=== PATIENT | male | born 1950 | race Caucasian/White ===

== ENCOUNTER 2017-07-26 13:58 | Inpatient (IN) | payer OTHER ==
[~2017-07-26] VITALS: Ht 172.7 cm; Wt 77.7 kg
[2017-07-26] VITALS (12 sets, daily range): BP systolic 79–140; BP diastolic 50–69; PULSE 12–79; RESP 16–18; TEMP 97.7–97.8; O2SAT 96–100
[2017-07-26] MEDS ORDERED: DIGOXIN IMMUNE FAB INJ 400 MG in SODIUM CHLORIDE 0.9% INJ 50 ML IV ONE (14:30)
[2017-07-26] MEDS ORDERED: MIDAZOLAM 100 MG/100 ML INJ 100 ML IV PRN (14:30)
[2017-07-26 14:31] LABS: AUTOMATED NEUTROPHIL # 7.4 TH/MM3 (1.8-7.7); BASOPHIL # 0.1 TH/MM3 (0-0.2); BASOPHIL % 0.6 % (0.0-2.0); EOSINOPHIL # 0.1 TH/MM3 (0-0.4); HEMATOCRIT 39.8 % (39.0-51.0); HEMO FLAGS DIFF FINAL; LYMPH % 15.1 % (9.0-44.0); LYMPHOCYTE # 1.5 TH/MM3 (1.0-4.8); MEAN CELL VOLUME 101.5 FL (80.0-100.0); MEAN CORPUSCULAR HGB CONC 35.5 % (32.0-36.0); MONO % 7.5 % (0.0-8.0); NEUT % 75.8 % (16.0-70.0); PLATELET COUNT 109 TH/MM3 (150-450); RED BLOOD COUNT 3.92 MIL/MM3 (4.50-5.90); RED CELL DISTRIBUTION WIDTH 15.3 % (11.6-17.2); WHITE BLOOD COUNT 9.8 TH/MM3 (4.0-11.0)
--- NOTE | 2017-07-26 14:51 | PD ---
HPI . Symptomatic bradycardia Chief Complaint: Cardiac complaint Time Seen by Provider: 14:04 Travel History International Travel<30 days: No Contact w/Intl Traveler<30days: No History of Present Illness HPI This is an inmate from the local care home who was sent to us after being found down in his cell. Staff at the care home initiated CPR. They then found out that the patient had a DNR so CPR was stopped. However, the patient had spontaneous return of respirations. EMS was called. On their arrival, they found the patient to be bradycardic at a rate of 20 with a systolic blood pressure of 50. They initiated transcutaneous pacing. Blood pressure is now > 100. Medics report that the patient was responsive on their arrival to the scene and that the patient told them that he wanted them to do everything that they could take care of him. Records from the care home indicate that he has a history of atrial fibrillation, asthma/COPD, hepatitis C, pancytopenia and lower extremity edema. PFSH Social History Tobacco Use: No Allergies-Medications (Allergen,Severity, Reaction): Coded Allergies: No Known Allergies (Unverified , 07/26/17) Reported Meds & Prescriptions Reported Meds & Active Scripts Active Reported Duoneb (Ipratropium-Albuterol Neb) 0.5-2.5 Mg/3 Ml Neb 3 Ml NEB BID PRN Oxygen (O2) (Miscellaneous Medication) Inha Liter DAVID.CANULA PRN Oxygen Concentrator Portable Gaseous 2 L/min via Nasal Canula Continuous For 99 months Lasix (Furosemide) 20 Mg Tab 20 Mg PO DAILY Flomax (Tamsulosin HCl) 0.4 Mg Cap 0.4 Mg PO DAILY Alvesco Inh (Ciclesonide Inh) 80 Mcg/Act Aero 1 Puff INH BID Protonix (Pantoprazole Sodium) 40 Mg Tab 40 Mg PO DAILY Klor-Con 10 (Potassium Chloride) 10 Meq Tab 10 Meq PO DAILY Aldactone (Spironolactone) 50 Mg Tab 50 Mg PO BID Diltiazem ER 12 HR (Diltiazem HCl) 120 Mg Caper 120 Mg PO DAILY Lanoxin (Digoxin) 125 Mcg Tablet 125 Mcg PO DAILY Hold if pulse below 60 Aspirin Adult Low Strength (Aspirin) 81 Mg Tabdr 81 Mg PO DAILY Pepto-Bismol Liq (Bismuth Subsalicylate) 262 Mg/15 Ml Susp 30 Ml PO PRN Do not exceed 8 doses (240 mL or 16 tbsp) in 24 hours. [Ensure] 1 Can PO TID Propranolol (Propranolol HCl) 60 Mg Tab 60 Mg PO Q12HR Xopenex Hfa 15 GM Inh (Levalbuterol 15 GM Inh) 45 Mcg/Act Aer 2 Puff INH Q4-6H PRN Shake well before using. (1 puff = 45 mcg) Review of Systems ROS Limitations: Intubated Physical Exam Narrative GENERAL: Patient is intubated SKIN: warm/dry. HEAD: Normocephalic. Atraumatic. EYES: Pupils equal and round. No scleral icterus. No injection or drainage. ENT: No nasal bleeding or discharge. Mouth is very dry. NECK: Trachea midline. CARDIOVASCULAR: Paced rhythm with a systolic blood pressure of about 105. RESPIRATORY: Breath sounds equal bilaterally. GASTROINTESTINAL: Abdomen soft. Nondistended. MUSCULOSKELETAL: No obvious deformities. NEUROLOGICAL: Intubated. PSYCHIATRIC: Unable to assess. Data Data Last Documented VS Vital Signs Date Time Temp Pulse Resp B/P (MAP) Pulse Ox O2 Delivery O2 Flow Rate FiO2 07/26/17 16:35 100 40 07/26/17 16:30 70 16 79/50 (60) Ventilator Orders Orders Electrocardiogram (07/26/17 14:04) Basic Metabolic Panel (Bmp) (07/26/17 14:04) Ckmb (Isoenzyme) Profile (07/26/17 14:04) Complete Blood Count With Diff (07/26/17 14:04) Magnesium (Mg) (07/26/17 14:04) Prothrombin Time / Inr (Pt) (07/26/17 14:04) Act Partial Throm Time (Ptt) (07/26/17 14:04) Troponin I (07/26/17 14:04) Chest, Single Ap (07/26/17 14:04) Ecg Monitoring (07/26/17 14:04) Iv Access Insert/Monitor (07/26/17 14:04) Oximetry (07/26/17 14:04) Oxygen Administration (07/26/17 14:04) Digoxin (07/26/17 14:04) Digoxin Immune Tra Inj (Digibind Inj) (07/26/17 14:30) Midazolam 100 Mg/100 Ml Inj (Versed Inj) (07/26/17 14:30) Neurological Rass Scale Q30MX2,Q2HX4,Q4H (07/26/17 14:21) Sodium Chlor 0.9% 1000 Ml Inj (Ns 1000 M (07/26/17 15:00) Admit To Inpatient (07/26/17 ) Code Status (07/26/17 15:42) Vital Signs (Adult) CRISTOFER.Q1H (07/26/17 15:42) Activity Bed Rest (07/26/17 15:42) Elevate Head Of Bed (07/26/17 15:42) Pantoprazole Inj (Protonix Inj) (07/26/17 16:00) Albuterol-Ipratropium Neb (Duoneb Neb) (07/26/17 16:00) Complete Blood Count With Diff (07/27/17 04:00) Comprehensive Metabolic Panel (07/27/17 04:00) Consult Cardiology (07/26/17 ) Compression Molding Machine Tender / Telemetry CRISTOFER.Q8H (07/26/17 15:42) Scd Bilateral/Knee High CRISTOFER.BID (07/26/17 15:42) ^ Initiate Protocol (07/26/17 15:42) Instruction (07/26/17 15:42) [facility] Nursing Information (07/26/17 15:45) Chlorhexidine 2% Cloth (Chlorhexidine 2% (07/27/17 04:00) Chlorhexidine 2% Cloth (Chlorhexidine 2% (07/26/17 15:45) Mrsa Pcr Surveillance (07/26/17 15:42) Docusate Sodium-Senna (Yanet-Colace) (07/26/17 21:00) Magnesium Hydroxide Liq (Milk Of Magnesi (07/26/17 15:45) Sennosides (Senokot) (07/26/17 15:45) Bisacodyl Supp (Dulcolax Supp) (07/26/17 15:45) Lactulose Liq (Lactulose Liq) (07/26/17 15:45) Inpatient Certification (07/26/17 ) Ct Brain W/O Iv Contrast(Rout) (07/26/17 ) Arterial Blood Gas (Abg) (07/26/17 ) Echo 2d Comp With Doppler (07/26/17 ) Drug Screen, Random Urine (07/26/17 15:48) (Hub Use Only)Inp Phy Cons/Ref (07/26/17 ) ^ Infusion (07/26/17 ) Dopamine Inj Premix (Dopamine Inj Premix (07/26/17 16:15) Terbutaline Inj (Brethine Inj) (07/26/17 16:15) Thyroid Stimulating Hormone (07/26/17 15:40) Dopamine Inj Premix (Dopamine Inj Premix (07/26/17 16:30) Insulin Human Regular Inj (Novolin R Inj (07/26/17 16:45) Dextrose 50% In Kesha (Syr) Inj (D50w (Syr (07/26/17 16:45) Calcium Gluconate Inj (Calcium Gluconate (07/26/17 16:45) Sodium Bicarbonate 8.4% Inj (Sodium Bica (07/26/17 16:45) Sod Polystyrene Sulfate Enema (Kayexalat (07/26/17 16:45) Admit Order (Ed Use Only) (07/26/17 16:41) Albuterol Neb (Albuterol Neb) (07/26/17 16:42) Labs Laboratory Tests Test 07/26/17 14:22 07/26/17 15:40 07/26/17 15:42 White Blood Count 9.8 TH/MM3 Red Blood Count 3.92 MIL/MM3 Hemoglobin 14.1 GM/DL Hematocrit 39.8 % Mean Corpuscular Volume 101.5 FL Mean Corpuscular Hemoglobin 36.0 PG Mean Corpuscular Hemoglobin Concent 35.5 % Red Cell Distribution Width 15.3 % Platelet Count 109 TH/MM3 Mean Platelet Volume 8.4 FL Neutrophils (%) (Auto) 75.8 % Lymphocytes (%) (Auto) 15.1 % Monocytes (%) (Auto) 7.5 % Eosinophils (%) (Auto) 1.0 % Basophils (%) (Auto) 0.6 % Neutrophils # (Auto) 7.4 TH/MM3 Lymphocytes # (Auto) 1.5 TH/MM3 Monocytes # (Auto) 0.7 TH/MM3 Eosinophils # (Auto) 0.1 TH/MM3 Basophils # (Auto) 0.1 TH/MM3 CBC Comment DIFF FINAL Differential Comment Prothrombin Time 13.9 SEC Prothromb Time International Ratio 1.2 RATIO Activated Partial Thromboplast Time 32.9 SEC Blood Urea Nitrogen 30 MG/DL Creatinine 1.21 MG/DL Random Glucose 113 MG/DL Calcium Level 8.1 MG/DL Magnesium Level 1.7 MG/DL Sodium Level 132 MEQ/L Potassium Level 6.7 MEQ/L Chloride Level 101 MEQ/L Carbon Dioxide Level 24.8 MEQ/L Anion Gap 6 MEQ/L Estimat Glomerular Filtration Rate 60 ML/MIN Total Creatine Kinase 80 U/L Troponin I LESS THAN 0.02 NG/ML Thyroid Stimulating Hormone 3rd Gen 6.930 uIU/ML Digoxin Level 0.3 NG/ML Blood Gas Puncture Site LT RADIAL Blood Gas Patient Temperature 98.6 Blood Gas HCO3 22 mmol/L Blood Gas Base Excess -1.3 mmol/L Blood Gas Oxygen Saturation 99 % Arterial Blood pH 7.48 Arterial Blood Partial Pressure CO2 30 mmHg Arterial Blood Partial Pressure O2 493 mmHG Arterial Blood Oxygen Content 17.7 Vol % Arterial Blood Carboxyhemoglobin 1.4 % Arterial Blood Methemoglobin 0.4 % Blood Gas Hemoglobin 11.9 G/DL Oxygen Delivery Device VENTILATOR Blood Gas Ventilator Setting 16/500/PEEP5 Blood Gas Inspired Oxygen 100 % [facility] Medical Decision Making Medical Screen Exam Complete: Yes Emergency Medical Condition: Yes Medical Record Reviewed: Yes (care home records reviewed. Please see HPI..) Interpretation(s) Heart rate is so slow that there are only 2 QRS complexes on the entire EKG. The complexes are narrow. There are no P waves seen. Differential Diagnosis Differential diagnosis of bradycardia includes but is not limited to medication affect, sick sinus syndrome, normal physiology Narrative Course This patient presents to us via [facility] with profound symptomatic bradycardia. He is on Lanoxin. I have empirically ordered Digibind. In the meantime, he is being paced. He is also on the ventilator. He is being sedated with a Versed drip. I will consult the puttying and calking supervisor. The patient has received the Digibind. He does not tolerate removal of the transcutaneous pacemaker. Dr. Cortez, puttying and calking supervisor, asked me to call cardiology. I have talked with Dr. Paz who will be here to see the patient shortly. He has asked that I start dopamine and then turn the pacer rate down to 30-40. CBC Diagram 07/26/17 14:22 BMP Diagram 07/26/17 15:40 Calcium Level 8.1 L, Magnesium Level 1.7 Kayexalate, insulin/D50, calcium and bicarbonate have been ordered. Troponin is less than 0.02. CK is 80. Digoxin level is 0.3. Critical Care Narrative Aggregate critical care time was 45 minutes. Time to perform other separately billable procedures was not included in the critical care time. My time did not include minutes spent treating any other patients simultaneously or on activities that did not directly contribute to the patient's treatment. The services I provided to this patient were to treat and/or prevent clinically significant deterioration due to symptomatic bradycardia I provided critical care services requiring my management, as noted below: Chart data review, documentation time, medication orders and management, vital sign assessments/reviewing monitor data, ordering and reviewing lab tests, ordering and interpreting/reviewing x-rays and diagnostic studies, care of the patient and discussion of the patient with the admitting physicians Physician Communication Physician Communication Dr. Shannan Cortez, puttying and calking supervisor and Dr. Paz, central lab technician. Diagnosis Primary Impression: Symptomatic bradycardia Additional Impression: Hyperkalemia Admitting Information Admitting Physician Requests: Admit Condition: Serious Sheridan Hunt MD Jul 26, 2017 14:51
[2017-07-26 14:58] LABS: APTT (PATIENT) 32.9 SEC (24.3-30.1); INTERNATIONAL NORMALIZED RATIO 1.2 RATIO; PROTHROMBIN TIME - PATIENT 13.9 SEC (9.8-11.6)
[2017-07-26] MEDS ORDERED: SODIUM CHLOR 0.9% 1000 ML INJ 1,000 ML IV ONE ×5 (15:00→20:00)
[2017-07-26] MEDS ORDERED: PEPT262S PO (15:09)
[2017-07-26] MEDS ORDERED: OXYGEN NAS.CANULA (15:09)
[2017-07-26] MEDS ORDERED: DILT120C9 PO (15:09)
[2017-07-26] MEDS ORDERED: PROP60TA PO (15:09)
[2017-07-26] MEDS ORDERED: XOPEAER4 INH (15:09)
[2017-07-26] MEDS ORDERED: POTA-243 PO (15:09)
[2017-07-26] MEDS ORDERED: ALVE80AE2 INH (15:09)
[2017-07-26] MEDS ORDERED: IPRASOL NEB (15:09)
[2017-07-26] MEDS ORDERED: ALDA50TA2 PO (15:09)
[2017-07-26] MEDS ORDERED: ENSURE PO (15:09)
[2017-07-26] MEDS ORDERED: ASPI1TAB91 PO (15:09)
[2017-07-26] MEDS ORDERED: TAMS5CAP PO (15:09)
[2017-07-26] MEDS ORDERED: PROT40TA PO (15:09)
[2017-07-26] MEDS ORDERED: LANO0.12 PO (15:09)
[2017-07-26] MEDS ORDERED: FURO1TAB62 PO (15:09)
[2017-07-26] MEDS ORDERED: MISCELLANEOUS NURSING INFORMATION XX SCH (15:45)
[2017-07-26] MEDS ORDERED: SENNOSIDES 8.6 MG TAB PO PRN (15:45)
[2017-07-26] MEDS ORDERED: LACTULOSE SYRUP 20 GM/30 ML CUP PO PRN (15:45)
[2017-07-26] MEDS ORDERED: CHLORHEXIDINE GLUCONATE 2 % 1 PACK (2 CLOTHS) TOP PRN (15:45)
[2017-07-26] MEDS ORDERED: MAGNESIUM HYDROXIDE SUSP 30 ML CUP PO PRN (15:45)
[2017-07-26] MEDS ORDERED: BISACODYL 10 MG SUPP RECTAL PRN (15:45)
[2017-07-26 16:00] LABS: BLOOD GAS BASE EXCESS -1.3 mmol/L (-2-2); BLOOD GAS CARBOXYHEMOGLOBIN 1.4 % (0-4); BLOOD GAS HCO3 22 mmol/L (22-26); BLOOD GAS METHEMOGLOBIN 0.4 % (0-2); BLOOD GAS O2 HGB SATURATION 99 % (90-100); BLOOD GAS OXYGEN CONTENT 17.7 Vol % (12.0-20.0); BLOOD GAS PCO2 30 mmHg (38-42); BLOOD GAS PO2 493 mmHG (61-120); BLOOD GAS TOTAL HGB 11.9 G/DL (12.0-16.0); CRITICAL VALUE NO; DRAW SITE LT RADIAL; FIO2 100 %; NUMBER OF ARTERIAL PUNCTURES 1; OXYGEN DEVICE VENTILATOR; STAT YES; TEMP CORR TO 98.6; ULNAR PULSE PRESENT; VENT SETTINGS 16/500/PEEP5
--- NOTE | 2017-07-26 16:12 | RADRPT ---
EXAM DATE/TIME: 07/26/2017 14:49 [facility] COMPARISON: No previous studies available for comparison. INDICATIONS : Shortness of breath. MEDICAL HISTORY : Unobtainable. SURGICAL HISTORY : Unobtainable. ENCOUNTER: Initial ACUITY: 1 day PAIN SCORE: Non-responsive. LOCATION: chest FINDINGS: There is an ETT approximately 1.5 cm above the melinda. There is an NGT in the stomach. No significant focal pleural or parenchymal abnormality. Cardiomediastinal contours are within normal limits. Bony thorax is intact. CONCLUSION: 1. ETT approximately 1.5 cm above the melinda. NGT in the stomach. 2. No acute radiographic cardiopulmonary abnormality. Jim Mckenna MD on July 26, 2017 at 16:08 Board Certified Radiologist. This report was verified electronically.
[2017-07-26] MEDS ORDERED: TERBUTALINE INJ 1 MG/ML AMP SQ PRN ×2 (16:15→17:15)
[2017-07-26] MEDS ORDERED: DOPamine INJ PREMIX 500 ML IV PRN (16:15)
[2017-07-26] MEDS: PANTOPRAZOLE SODIUM 40 MG VIAL IV PUSH SCH (16:26)
[2017-07-26 16:27] LABS: ANION GAP 6 MEQ/L (5-15); BICARBONATE 24.8 MEQ/L (21.0-32.0); BLOOD UREA NITROGEN 30 MG/DL (7-18); CHLORIDE 101 MEQ/L (98-107); CREATINE KINASE 80 U/L (39-308); DIGOXIN 0.3 NG/ML (0.8-2.0); GLOMERULAR FILTRATION RATE 60 ML/MIN (>89); MAGNESIUM 1.7 MG/DL (1.5-2.5); SODIUM (NA) 132 MEQ/L (136-145)
[2017-07-26 16:29] LABS: POTASSIUM 6.7 MEQ/L (3.5-5.1)
[2017-07-26] MEDS: RESP: ALBUTEROL 2.5 MG/IPRATROPIUM 0.5 MG NEB (SCH) INH ×2 (16:34→21:52)
[2017-07-26] MEDS ORDERED: RESP: ALBUTEROL 2.5 MG/3 ML NEB (PRN) ONE (16:42)
[2017-07-26] MEDS ORDERED: CALCIUM GLUCONATE 10% 1 GM/10 ML VIAL IV PUSH ONE (16:45)
[2017-07-26] MEDS ORDERED: DEXTROSE 50% IN WATER 50 ML SYRINGE IV PUSH ONE ×2 (16:45→19:45)
[2017-07-26] MEDS ORDERED: INSULIN HUMAN REGULAR 1,000 UNITS/10 ML VIAL IV PUSH ONE ×2 (16:45→19:45)
[2017-07-26] MEDS ORDERED: SODIUM BICARBONATE 8.4% INJ 50 MEQ/50 ML SYR IV PUSH ONE ×2 (16:45→19:45)
[2017-07-26] MEDS ORDERED: SODIUM POLYSTYRENE SULFONATE 30 GM/120 ML ENEMA RECTAL ONE (16:45)
--- NOTE | 2017-07-26 16:47 | MB ---
cc: TOMMY GILLETTE MD DATE OF CONSULTATION: 07/26/2017. REASON FOR CONSULTATION: Severe bradycardia / cardiac arrest. HISTORY OF PRESENT ILLNESS: The patient is a 66-year-old inmate who was found down in his cell. CPR was initiated prior to his apparent DNR being discovered. EMS arrived and they were able to get him back with transcutaneous pacing and apparently somewhere in this process, the patient wished to have everything done, although the details of this verbalization are quite unclear. He lost response from this fairly quickly thereafter and was intubated and he has been transcutaneously paced, intubated and sedated since. All history is obtained from the chart. The patient remains sedated. PAST MEDICAL HISTORY: 1. Atrial fibrillation. 2. Positive PPD with treatment. 3. Hepatitis C. 4. COPD. 5. Lower extremity edema. 6. Pancytopenia. 7. Liver disease. MEDICATIONS IN THE GROUP HOME: 1. Propranolol 60 milligrams p.o., I believe, q. 6 hours, but the writing is unclear. 2. Digoxin 0.125 milligrams daily. 3. Diltiazem 120 milligrams daily. 4. Aldactone. 5. Potassium. 6. Protonix. 7. Lactulose. 8. Lasix. ALLERGIES: NO KNOWN DRUG ALLERGIES. PHYSICAL EXAMINATION: GENERAL: A thin gentleman who appears older than his stated in poor general health. NECK: No jugular venous distention. LUNGS: Clear to auscultation bilaterally. CARDIOVASCULAR: Bradycardic due to his paced rhythm with no significant murmurs appreciated. ABDOMEN: Benign. EXTREMITIES: No edema. LABORATORY DATA: White count 9.8, hematocrit 39.8, platelet count 109,000. Chemistries are pending. Toxicology is pending. EKGS: EKG when the pacemaker was suspended showed essentially asystole with very rare junctional escape beats. IMPRESSION: 1. Sinus arrest. The patient was found down in his cell and it is possible that he has had an anoxic injury causing this bradycardia, but the bradycardia could also be a primary player in the patient's presentation. Digoxin levels are pending but Digibind was given empirically. He is currently hemodynamically stable under transcutaneous pacing. I have asked for a dopamine drip to be initiated to try to at least get some [place] rhythm reestablished. Apparently the patient is hyperkalemic with a potassium of about a 6. Standard insulin, glucagon, Kayexalate protocols will be used to bring down his potassium. Thank you again for the opportunity to participate in this patient's care. MD RJ Harper/CRISTIAN /4:24 PM /4:34 PM
[2017-07-26] MEDS ORDERED: NOREPINEPHRINE-DEXTROSE DRIP 250 ML IV ONE (17:15)
[2017-07-26] MEDS: DEXT 5%-NACL 0.9% 1000 ML INJ 1,000 ML IV SCH (17:23)
[2017-07-26] MEDS ORDERED: HYDROCORTISONE SOD SUCCINATE 100 MG VIAL ONE (17:31)
[2017-07-26] MEDS: HYDROCORTISONE SOD SUCCINATE 100 MG VIAL IV PUSH SCH (18:00)
--- NOTE | 2017-07-26 18:07 | MH ---
cc: RONIT SIMON DATE OF ADMISSION 07/26/2017 1952 HISTORY OF PRESENT ILLNESS The patient is a 66-year-old male with past medical history of COPD, hepatitis C, atrial fibrillation who presented to [facility] ED after he was found down in his cell at a local residential. CPR was initiated prior to his apparent DNR being discovered. EMS arrived and they were able to get him back with transcutaneous pacing, however, during that time the patient wished to have everything done. He became unresponsive and was intubated in the field and he has been a transcutaneously paced. On arrival to the emergency room, the patient was bradycardic and hypotensive. He was seen by Dr. Paz and started on dopamine drip currently at 10 mcg. The patient was given Digibind empirically. however, his Digoxin level came back subtherapeutic at 0.3. His laboratory data significant for hyperkalemia with potassium level 6.7, creatinine of 1.21. The patient scheduled to receive 10 units IV insulin D50, calcium, sodium bicarb and kayexalate for treatment of his hyperkalemia. EKG showed junctional rhythm. Intraventricular conduction delay with a rate of 33 beats per minute. The chest x-ray in the ER showed ET tube approximately 1.5 cm above the melinda. No acute radiographic cardiopulmonary abnormalities identified. His troponin level was less than 0.02 with total CK of 80. The rest of the history is limited as the patient is intubated. PAST MEDICAL HISTORY 1. Atrial fibrillation. 2. Positive PPD with treatment 3. Chronic hepatitis C, 4. COPD. PAST SURGICAL HISTORY Unknown. MEDICATIONS Current, 1. Propranolol. 2. Digoxin. 3. Diltiazem 4. Aldactone 5. Potassium. 6. Protonix, 7. Lactulose. 8. Lasix. ALLERGIES NO KNOWN DRUG ALLERGIES. SOCIAL HISTORY The patient is in inmate in a local residential. PHYSICAL EXAMINATION GENERAL: A 66-year-old male critically ill, intubated who appears older than his stated age. VITAL SIGNS: Bradycardic 30s to 40s, blood pressure 111/44 on dopamine, saturation 100%. Vent setting assist control rate of 16, tidal volume 500, PEEP of five, FIO2 100%. HEENT: Atraumatic, normocephalic. Pupils equal, round and reactive to light and accommodation. Extraocular muscles intact. Conjunctivae pink. Nonicteric sclerae. Oral mucosa within normal. NECK: Supple. No JVD, adenopathy or thyromegaly. Trachea midline. Orally intubated. CARDIOVASCULAR: Bradycardic. No murmurs, rubs or gallops. PULMONARY: Bilateral equal entry. No rales or wheezing. ABDOMEN: Soft, nontender, no distension. Positive bowel sounds. EXTREMITIES: No cyanosis, clubbing or edema. NEUROLOGIC: Intubated. IMAGING STUDIES Chest x-ray showed ET tube above the melinda. No acute cardiopulmonary disease. CARDIOLOGY STUDIES EKG - junctional escape beats. When pacemaker was suspended it showed asystole. LABORATORY DATA Sodium 132, potassium 6.7, chloride 101, CO2 24, BUN 30, creatinine 1.21, glucose of 113, troponin less than 0.02, TSH 6.9. WBC 9.8, hemoglobin 14, hematocrit 39, platelet count 109, INR 1.2, PT 13.9, PTT 32.9. Dig level 0.3. IMPRESSION 1. Vent dependent respiratory failure. 2. Sinus asad arrest. 3. Hyperkalemia. 4. Hyponatremia. 5. History of atrial fibrillation. 6. COPD. 7. Hepatitis C. 8. Thrombocytopenia. RECOMMENDATIONS 1. Monitor neuro status closely. We will need CT scan of the brain once stable to rule out acute intracranial process. 2. Continue with vent support and maintain sats above 92%. 3. Bronchodilators in the form of DuoNeb. We will initiate ICU vent bundle. The patient is on assist control ventilation rate 16, tidal volume 500, PEEP of five. We will decrease FIO2 as tolerated to 40%. 4. Continue with dopamine drip. Maintain heart rate greater than 60 and a MAP greater than 65 mmHg. He was given Digibind empirically, however, his Digoxin level was subtherapeutic at 0.3. The patient was seen by Dr. Paz from cardiology service and currently being paced. His initial troponin level 0.02 with a total CK of 80. His arrest likely secondary to hyperkalemia. We will check 2-D echo to evaluate LV function and to rule out regional wall motion abnormalities. MD HALEIGH Dela Cruz/ /4:57 PM /5:35 PM
[2017-07-26 19:20] LABS: BICARBONATE 23.4 MEQ/L (21.0-32.0); POTASSIUM 5.6 MEQ/L (3.5-5.1)
[2017-07-26] MEDS ORDERED: CALCIUM GLUCONATE INJ 2 GM in SODIUM CHLORIDE 0.9% INJ 100 ML IV ONE (19:45)
[2017-07-26] MEDS ORDERED: CALCIUM GLUCONATE INJ 1 GM in SODIUM CHLORIDE 0.9% INJ 100 ML IV ONE (20:00)
[2017-07-26 20:40] LABS: LACTIC ACID GHOST NOT REPORTABLE
--- NOTE | 2017-07-26 20:55 | PD.PROCEDR ---
Procedure Note Procedure Centerline placement A time-out was completed verifying correct patient, procedure, site, positioning , and special equipment if applicable. The patient was placed in a dependent position appropriate for central line placement based on the vein to be cannulated. The patients left shoulder was prepped and draped in sterile fashion. 1% Lidocaine was used to anesthetize the surrounding skin area. A triple lumen 9-Martiniquais Cordis catheter was introduced into the the left subclavian vein using the Seldinger technique. The catheter was threaded smoothly over the guide wire and appropriate blood return was obtained. Each lumen of the catheter was evacuated of air and flushed with sterile saline. The catheter was then sutured in place to the skin and a sterile dressing applied. Perfusion to the extremity distal to the point of catheter insertion was checked and found to be adequate. Estimated Blood Loss: 1ml The patient tolerated the procedure well and there were no complications. Grover Gutierrez MD Jul 26, 2017 20:55
--- NOTE | 2017-07-26 21:06 | RADRPT ---
EXAM DATE/TIME: 07/26/2017 20:48 [facility] COMPARISON: CHEST SINGLE AP, July 26, 2017, 14:49. INDICATIONS : Evaluate for central line placement. MEDICAL HISTORY : Unobtainable. SURGICAL HISTORY : Unobtainable. ENCOUNTER: Subsequent ACUITY: 1 day PAIN SCORE: Non-responsive. LOCATION: chest FINDINGS: Endotracheal tube tip 2 cm above the melinda. Gastric tube traverses the [id number]. Left subclav anne-marie catheter descends in the left mediastinum and the tip superimposes over the left heart border inf erior to the hilum. This cannot be further localized ossicle from view. The lungs are symmetrically aerated. No infiltrate seen. The heart is normal size. CONCLUSION: 1. The left central line is not in the superior vena cava, but rather it courses inferiorly into the left mediastinum. 2. No evidence of pneumothorax. Wade Combs MD on July 26, 2017 at 20:59 Board Certified Radiologist. This report was verified electronically.
[2017-07-26] MEDS: NOREPINEPHRINE-DEXTROSE DRIP 250 ML IV PRN (21:30)
[2017-07-27] VITALS (50 sets, daily range): BP systolic 75–148; BP diastolic 44–71; PULSE 40–79; RESP 12–24; TEMP 96.8–99.6; O2SAT 18–100
[2017-07-27] MEDS: DEXT 5%-NACL 0.9% 1000 ML INJ 1,000 ML IV SCH ×3 (01:00→17:16)
[2017-07-27 01:23] LABS: CREATINE KINASE 68 U/L (39-308)
--- NOTE | 2017-07-27 01:23 | EKG ---
Date Performed: 07/26/2017 Time Performed: 14:18:36 PTAGE: 66 years EKG: ASYSTOLE WITH JUNCTIONAL ESCAPE BEATS NONSPECIFIC ST ABNORMALITY ABNORMAL ECG NO PREVIOUS TRACING DOCTOR: Mekhi Menezes Interpretating Date/Time 07/27/2017 01:22:07
[2017-07-27] MEDS: NOREPINEPHRINE-DEXTROSE DRIP 250 ML IV PRN ×3 (01:57→14:21)
[2017-07-27 02:06] LABS: BACTERIA, URINE FEW /hpf; BLOOD, URINE MOD (NEG); GLUCOSE,URINE NEG (NEG); HYALINE CAST, URINE 61 /lpf (RARE); KETONE, URINE NEG (NEG); MUCUS URINE FEW /lpf (OCC); NITRITE,URINE NEG (NEG); URINE COLOR YELLOW (YELLW/STRAW)
[2017-07-27 02:07] LABS: COMMENT (UR) CATH-CULTURE IND; CULTURE IF INDICATED CATH CULTURE IND
[2017-07-27] MEDS: RESP: ALBUTEROL 2.5 MG/IPRATROPIUM 0.5 MG NEB (SCH) INH ×4 (03:44→21:15)
[2017-07-27] MEDS: CHLORHEXIDINE GLUCONATE 2 % 1 PACK (2 CLOTHS) TOP SCH (04:00)
[2017-07-27 04:38] LABS: ANION GAP 6 MEQ/L (5-15); AST (GOT) 104 U/L (15-37); AUTOMATED NEUTROPHIL # 13.9 TH/MM3 (1.8-7.7); BASOPHIL % 0.1 % (0.0-2.0); BICARBONATE 21.4 MEQ/L (21.0-32.0); BLOOD UREA NITROGEN 28 MG/DL (7-18); CHLORIDE 106 MEQ/L (98-107); EOSINOPHIL % 0.1 % (0.0-4.0); GLOMERULAR FILTRATION RATE 74 ML/MIN (>89); HEMATOCRIT 39.7 % (39.0-51.0); LYMPH % 8.2 % (9.0-44.0); LYMPHOCYTE # 1.3 TH/MM3 (1.0-4.8); MEAN CELL VOLUME 101.4 FL (80.0-100.0); MEAN CORPUSCULAR HGB CONC 34.5 % (32.0-36.0); MONO % 7.3 % (0.0-8.0); NEUT % 84.3 % (16.0-70.0); PLATELET COUNT 128 TH/MM3 (150-450); POTASSIUM 5.5 MEQ/L (3.5-5.1); RED BLOOD COUNT 3.92 MIL/MM3 (4.50-5.90); RED CELL DISTRIBUTION WIDTH 14.8 % (11.6-17.2); SODIUM (NA) 133 MEQ/L (136-145); WHITE BLOOD COUNT 16.5 TH/MM3 (4.0-11.0)
[2017-07-27 04:39] LABS: ALKALINE PHOSPHATASE 72 U/L (45-117); ALT (GPT) 70 U/L (12-78); TOTAL BILIRUBIN ADULT 2.8 MG/DL (0.2-1.0)
[2017-07-27] MEDS: HYDROCORTISONE SOD SUCCINATE 100 MG VIAL IV PUSH SCH ×3 (04:39→21:40)
[2017-07-27] MEDS: DOPamine INJ PREMIX 500 ML IV PRN ×2 (04:40→21:52)
[2017-07-27 04:43] LABS: HEMO FLAGS AUTO DIFF
[2017-07-27 05:28] LABS: SCAN/DIFF AUTO DIFF CONFIRMED
[2017-07-27] MEDS: DOCUSATE SODIUM 50 MG/SENNA 8.6 MG TAB PO SCH ×3 (07:55→21:40)
[2017-07-27] MEDS: PANTOPRAZOLE SODIUM 40 MG VIAL IV PUSH SCH (07:55)
--- NOTE | 2017-07-27 08:50 | HHI.CCPN ---
Subjective Remarks/Hospital Course The patient is a 66-year-old male with past medical history of COPD, hepatitis C , atrial fibrillation who presented to [facility] ED after he was found down in his [facility] at a local jail. CPR was initiated prior to his apparent DNR being discovered. EMS arrived and they were able to get him back with transcutaneous pacing, however, during that time the patient wished to have everything done. He became unresponsive and was intubated in the field and he has been a transcutaneously paced. On arrival to the emergency room, the patient was bradycardic and hypotensive. He was seen by Dr. Paz and started on dopamine drip currently at 10 mcg. The patient was given Digibind empirically. however, his Digoxin level came back subtherapeutic at 0.3. His laboratory data significant for hyperkalemia with potassium level 6.7, creatinine of 1.21. The patient scheduled to receive 10 units IV insulin D50, calcium, sodium bicarb and kayexalate for treatment of his hyperkalemia. EKG showed junctional rhythm. Intraventricular conduction delay with a rate of 33 beats per minute. The chest x-ray in the ER showed ET tube approximately 1.5 cm above the melinda. No acute radiographic cardiopulmonary abnormalities identified. His troponin level was less than 0.02 with total CK of 80. The rest of the history is limited as the patient is intubated. 07/27: Patient remains sedated and intubated. On Dopamine 12 mics, Levophed 11 mics. K 5.5 this morning. Afebrile, transcutaneously paced. Objective Vital Signs Date Time Temp Pulse Resp B/P (MAP) Pulse Ox O2 Delivery O2 Flow Rate FiO2 07/27/17 07:54 125/61 07/27/17 06:00 60 07/27/17 06:00 40 07/27/17 04:00 99.0 18 96 07/26/17 17:00 Ventilator Intake and Output 07/27/17 07/27/17 07/28/17 08:00 16:00 00:00 Intake Total 6445 ml Output Total 650 ml Balance 5795 ml Result Diagram: 07/27/17 0340 07/27/17 0340 Other Results Laboratory Tests Test 07/26/17 14:22 07/26/17 15:40 07/26/17 15:42 07/26/17 17:00 White Blood Count 9.8 TH/MM3 Red Blood Count 3.92 MIL/MM3 Hemoglobin 14.1 GM/DL Hematocrit 39.8 % Mean Corpuscular Volume 101.5 FL Mean Corpuscular Hemoglobin 36.0 PG Mean Corpuscular Hemoglobin Concent 35.5 % Red Cell Distribution Width 15.3 % Platelet Count 109 TH/MM3 Mean Platelet Volume 8.4 FL Neutrophils (%) (Auto) 75.8 % Lymphocytes (%) (Auto) 15.1 % Monocytes (%) (Auto) 7.5 % Eosinophils (%) (Auto) 1.0 % Basophils (%) (Auto) 0.6 % Neutrophils # (Auto) 7.4 TH/MM3 Lymphocytes # (Auto) 1.5 TH/MM3 Monocytes # (Auto) 0.7 TH/MM3 Eosinophils # (Auto) 0.1 TH/MM3 Basophils # (Auto) 0.1 TH/MM3 CBC Comment DIFF FINAL Differential Comment Prothrombin Time 13.9 SEC Prothromb Time International Ratio 1.2 RATIO Activated Partial Thromboplast Time 32.9 SEC Blood Urea Nitrogen 30 MG/DL Creatinine 1.21 MG/DL Random Glucose 113 MG/DL Calcium Level 8.1 MG/DL Magnesium Level 1.7 MG/DL Sodium Level 132 MEQ/L Potassium Level 6.7 MEQ/L Chloride Level 101 MEQ/L Carbon Dioxide Level 24.8 MEQ/L Anion Gap 6 MEQ/L Estimat Glomerular Filtration Rate 60 ML/MIN Total Creatine Kinase 80 U/L Troponin I LESS THAN 0.02 NG/ML Thyroid Stimulating Hormone 3rd Gen 6.930 uIU/ML Digoxin Level 0.3 NG/ML Blood Gas Puncture Site LT RADIAL Blood Gas Patient Temperature 98.6 Blood Gas HCO3 22 mmol/L Blood Gas Base Excess -1.3 mmol/L Blood Gas Oxygen Saturation 99 % Arterial Blood pH 7.48 Arterial Blood Partial Pressure CO2 30 mmHg Arterial Blood Partial Pressure O2 493 mmHG Arterial Blood Oxygen Content 17.7 Vol % Arterial Blood Carboxyhemoglobin 1.4 % Arterial Blood Methemoglobin 0.4 % Blood Gas Hemoglobin 11.9 G/DL Oxygen Delivery Device VENTILATOR Blood Gas Ventilator Setting 16/500/PEEP5 Blood Gas Inspired Oxygen 100 % Nasal Screen MRSA (PCR) MRSA NOT DETECTED Test 07/26/17 18:32 07/26/17 18:36 07/26/17 20:50 07/27/17 00:15 Blood Urea Nitrogen 32 MG/DL Creatinine 1.18 MG/DL Random Glucose 166 MG/DL Calcium Level 8.5 MG/DL Sodium Level 134 MEQ/L Potassium Level 5.6 MEQ/L Chloride Level 104 MEQ/L Carbon Dioxide Level 23.4 MEQ/L Anion Gap 7 MEQ/L Estimat Glomerular Filtration Rate 62 ML/MIN Lactic Acid Level 2.2 mmol/L 1.4 mmol/L Urine Color YELLOW Urine Turbidity HAZY Urine pH 5.0 Urine Specific [place] 1.015 Urine Protein 30 mg/dL Urine Glucose (UA) NEG mg/dL Urine Ketones NEG mg/dL Urine Occult Blood MOD Urine Nitrite NEG Urine Bilirubin NEG Urine Urobilinogen 2.0 MG/DL Urine Leukocyte Esterase MOD Urine RBC 10 /hpf Urine WBC 8 /hpf Urine WBC Clumps RARE Urine Amorphous Sediment RARE Urine Bacteria FEW /hpf Urine Hyaline Casts 61 /lpf Urine Mucus FEW /lpf Microscopic Urinalysis Comment CATH-CULTURE IND Total Creatine Kinase 68 U/L Troponin I LESS THAN 0.02 NG/ML Urine Opiates Screen NEG Urine Barbiturates Screen NEG Urine Amphetamines Screen NEG Urine Benzodiazepines Screen POS Urine Cocaine Screen NEG Urine Cannabinoids Screen NEG Test 07/27/17 03:40 White Blood Count 16.5 TH/MM3 Red Blood Count 3.92 MIL/MM3 Hemoglobin 13.7 GM/DL Hematocrit 39.7 % Mean Corpuscular Volume 101.4 FL Mean Corpuscular Hemoglobin 35.0 PG Mean Corpuscular Hemoglobin Concent 34.5 % Red Cell Distribution Width 14.8 % Platelet Count 128 TH/MM3 Mean Platelet Volume 7.7 FL Neutrophils (%) (Auto) 84.3 % Lymphocytes (%) (Auto) 8.2 % Monocytes (%) (Auto) 7.3 % Eosinophils (%) (Auto) 0.1 % Basophils (%) (Auto) 0.1 % Neutrophils # (Auto) 13.9 TH/MM3 Lymphocytes # (Auto) 1.3 TH/MM3 Monocytes # (Auto) 1.2 TH/MM3 Eosinophils # (Auto) 0.0 TH/MM3 Basophils # (Auto) 0.0 TH/MM3 CBC Comment AUTO DIFF Differential Comment AUTO DIFF CONFIRMED Blood Urea Nitrogen 28 MG/DL Creatinine 1.01 MG/DL Random Glucose 262 MG/DL Total Protein 7.4 GM/DL Albumin 2.1 GM/DL Calcium Level 7.6 MG/DL Alkaline Phosphatase 72 U/L Aspartate Amino Transf (AST/SGOT) 104 U/L Alanine Aminotransferase (ALT/SGPT) 70 U/L Total Bilirubin 2.8 MG/DL Sodium Level 133 MEQ/L Potassium Level 5.5 MEQ/L Chloride Level 106 MEQ/L Carbon Dioxide Level 21.4 MEQ/L Anion Gap 6 MEQ/L Estimat Glomerular Filtration Rate 74 ML/MIN Imaging Last Impressions Chest X-Ray 07/26/17 1404 Signed Impressions: Service Date/Time: Wednesday, July 26, 2017 14:49 - CONCLUSION: 1. ETT approximately 1.5 cm above the melinda. NGT in the stomach. 2. No acute radiographic cardiopulmonary abnormality. Jim Mckenna MD Objective Remarks GENERAL: Patient is 66 yo critically ill intubated and on multiple pressors. SKIN: Warm and dry. HEAD: Normocephalic. EYES: No scleral icterus. No injection or drainage. NECK: Supple, trachea midline. No JVD or lymphadenopathy.Intubated. CARDIOVASCULAR: Regular rate and rhythm without murmurs, gallops, or rubs. RESPIRATORY: Breath sounds equal bilaterally. No accessory muscle use. GASTROINTESTINAL: Abdomen soft, non-tender, nondistended. MUSCULOSKELETAL: No cyanosis, or edema. Neuro: Intubated A/P Assessment and Plan 1. Vent dependent respiratory failure. 2. Sinus asad arrest. 3. Hyperkalemia. 4. Hyponatremia. 5. History of atrial fibrillation. 6. COPD. 7. Hepatitis C. 8. Thrombocytopenia. 9 Elevated AST Plan Neuro: Monitor neuro status closely. We will need CT scan of the brain once stable to rule out acute intracranial process/anoxic brain injury. UDS: + Benzos. Pulm: Continue with vent support and maintain sats above 92%. Bronchodilators, ICU vent bundle. Check CT chest w/o contrast CV: Continue with pressors (Dopamine, Levophed)maintain HR> 60 and a MAP >65 mmHg. s/p Digibind empirically in ED, Digoxin level: 0.3. On transcutaneous pacing. Cards is following- Dr. Paz. For 2-D echo to evaluate LV function and to rule out regional wall motion abnormalities. : Monitor renal function, I/O's, electrolytes replacement as needed. Patient was treated for hyperkalemia with IV insulin, D50, ca, Bicarb and Kayexalate. Will give 7 u IV insulin, On D5NS@125ml/hr GI: On Protonix 40mg daily, start tube feeds- Glucerna 1.5 with goal rate 45ml/ hr Monitor LFT's, check US liver ID: Place on Zosyn monitro for signs of infections ( Fever, WBC) Check BC and sputum cx, follow up on urine cx Heme: Monitor CBC Endo: Place on Medium SSI with accuchecks for glycemic control GI prophylaxis- Protonix 40mg daily DVT prophylaxis- SCD's, place on Heparin SQ if CT brain is negative Lines: Right Rad Art line, Left subclavian CVP placed 07/26 Patient is critically ill with resp failure , s/p sinus arrest likely 2nd hyperkalemia and likely now with anoxic brain injury CCT 35 mins Carlton Lopez MD Jul 27, 2017 08:50
[2017-07-27] MEDS ORDERED: INSULIN HUMAN REGULAR 1,000 UNITS/10 ML VIAL IV PUSH ONE ×2 (09:00→15:45)
[2017-07-27] MEDS: INSULIN NovoLIN REGULAR SUPPLEMENTAL SCALE SQ SCH ×4 (09:00→20:00)
[2017-07-27] MEDS ORDERED: GLUCAGON 1 MG/ML VIAL OTHER PRN (09:00)
[2017-07-27] MEDS ORDERED: DEXTROSE 50% IN WATER 50 ML VIAL(D50) IV PUSH PRN (09:00)
--- NOTE | 2017-07-27 09:30 | PD.CARD.PN ---
Subjective Subjective Remarks Potassium coming down, now natively conducting heart rate in the low 40s. Objective Medications Administered Medications Medications (Trade) Dose Ordered Sig/Ned Route PRN Reason Start Time Stop Time Status Last Admin Dose Admin Pantoprazole Sodium (Protonix Inj) 40 mg DAILY IV PUSH 07/26/17 16:00 07/27/17 07:55 Albuterol/ Ipratropium (Duoneb Neb) 1 ampule Q6HR NEB INH 07/26/17 16:00 07/27/17 03:44 Senna/Docusate Sodium (Yanet-Colace) 1 tab BID PO 07/26/17 21:00 07/27/17 07:55 Dopamine HCl/ Dextrose 500 ml @ 26.25 mls/ hr TITRATE PRN IV SYMPTOMATIC BRADYCARDIA 07/26/17 16:30 07/27/17 04:40 Dextrose/Sodium Chloride 1,000 ml @ 125 mls/hr Q8H IV 07/26/17 17:00 07/27/17 07:56 Norepinephrine Bitartrate 250 ml @ 7.5 mls/hr TITRATE PRN IV Blood pressure management 07/26/17 17:15 07/27/17 07:54 Vital Signs / I&O Vital Signs Date Time Temp Pulse Resp B/P (MAP) Pulse Ox O2 Delivery O2 Flow Rate FiO2 07/27/17 09:02 100 40 07/27/17 07:54 125/61 07/27/17 06:00 60 07/27/17 06:00 40 07/27/17 04:40 79 115/50 07/27/17 04:00 99.0 72 18 118/58 (78) 96 138/60 (86) 07/27/17 04:00 79 07/27/17 04:00 40 07/27/17 03:40 100 40 07/27/17 02:00 40 07/27/17 02:00 64 07/27/17 01:57 78 120/60 07/27/17 00:12 100 40 07/27/17 00:00 40 07/27/17 00:00 97.9 79 16 117/56 (76) 98 140/64 (89) 07/27/17 00:00 97.7 79 16 117/56 (76) 18 07/27/17 00:00 97.9 79 16 117/59 (78) 96 140/64 (89) 07/26/17 22:00 69 07/26/17 21:30 59 114/56 07/26/17 20:30 59 110/64 07/26/17 20:00 69 07/26/17 20:00 97.7 69 16 103/58 (73) 98 112/69 (83) 07/26/17 20:00 40 07/26/17 20:00 97.8 79 18 140/65 (90) 100 07/26/17 19:48 99 40 07/26/17 18:30 88/51 07/26/17 18:17 60 85/46 07/26/17 18:00 60 07/26/17 18:00 60 07/26/17 17:45 87/51 07/26/17 17:43 96 40 07/26/17 17:30 75/42 07/26/17 17:27 07/26/17 17:24 60 73/35 07/26/17 17:00 40 79/37 07/26/17 17:00 70 16 83/59 (67) 100 Ventilator 40 07/26/17 16:35 100 40 07/26/17 16:30 70 16 79/50 (60) 100 Ventilator 40 07/26/17 16:27 50 115/44 07/26/17 15:50 10 07/26/17 15:30 70 16 91/52 (65) 100 Ventilator 40 07/26/17 15:00 70 16 94/52 (66) 100 Ventilator 40 07/26/17 15:00 40 07/26/17 14:30 70 16 115/58 (77) 100 Ventilator 40 07/26/17 14:00 70 17 107/61 (76) 100 07/26/17 14:00 12 17 107/61 (76) 100 Ventilator 98 07/26/17 14:00 98 07/26/17 14:00 12 17 100 Ventilator 98 07/26/17 14:00 100 Ventilator 98 07/26/17 14:00 12 07/26/17 14:00 100 Ventilator 98 07/26/17 14:00 96 100 I/O 07/26/17 07/26/17 07/26/17 07/27/17 07/27/17 07/27/17 07:00 15:00 23:00 07:00 15:00 23:00 Intake Total 3050 ml 6445 ml Output Total 650 ml Balance 3050 ml 5795 ml Intake IV Total 3050 ml 6445 ml Output Urine Total 650 ml Stool Total 0 ml Physical Exam GENERAL: intubated, sedated CARDIOVASCULAR: slow rate and rhythm without murmurs, gallops, or rubs. RESPIRATORY: Clear to auscultation. Breath sounds equal bilaterally. No wheezes , rales, or rhonchi. GASTROINTESTINAL: Abdomen soft, non-tender, nondistended. Normal active bowel sounds MUSCULOSKELETAL: Extremities without clubbing, cyanosis, or edema. NEURO: sedated Laboratory Laboratory Tests Test 07/26/17 14:22 07/26/17 15:40 07/26/17 15:42 07/26/17 17:00 White Blood Count 9.8 TH/MM3 Red Blood Count 3.92 MIL/MM3 Hemoglobin 14.1 GM/DL Hematocrit 39.8 % Mean Corpuscular Volume 101.5 FL Mean Corpuscular Hemoglobin 36.0 PG Mean Corpuscular Hemoglobin Concent 35.5 % Red Cell Distribution Width 15.3 % Platelet Count 109 TH/MM3 Mean Platelet Volume 8.4 FL Neutrophils (%) (Auto) 75.8 % Lymphocytes (%) (Auto) 15.1 % Monocytes (%) (Auto) 7.5 % Eosinophils (%) (Auto) 1.0 % Basophils (%) (Auto) 0.6 % Neutrophils # (Auto) 7.4 TH/MM3 Lymphocytes # (Auto) 1.5 TH/MM3 Monocytes # (Auto) 0.7 TH/MM3 Eosinophils # (Auto) 0.1 TH/MM3 Basophils # (Auto) 0.1 TH/MM3 CBC Comment DIFF FINAL Differential Comment Prothrombin Time 13.9 SEC Prothromb Time International Ratio 1.2 RATIO Activated Partial Thromboplast Time 32.9 SEC Blood Urea Nitrogen 30 MG/DL Creatinine 1.21 MG/DL Random Glucose 113 MG/DL Calcium Level 8.1 MG/DL Magnesium Level 1.7 MG/DL Sodium Level 132 MEQ/L Potassium Level 6.7 MEQ/L Chloride Level 101 MEQ/L Carbon Dioxide Level 24.8 MEQ/L Anion Gap 6 MEQ/L Estimat Glomerular Filtration Rate 60 ML/MIN Total Creatine Kinase 80 U/L Troponin I LESS THAN 0.02 NG/ML Thyroid Stimulating Hormone 3rd Gen 6.930 uIU/ML Digoxin Level 0.3 NG/ML Blood Gas Puncture Site LT RADIAL Blood Gas Patient Temperature 98.6 Blood Gas HCO3 22 mmol/L Blood Gas Base Excess -1.3 mmol/L Blood Gas Oxygen Saturation 99 % Arterial Blood pH 7.48 Arterial Blood Partial Pressure CO2 30 mmHg Arterial Blood Partial Pressure O2 493 mmHG Arterial Blood Oxygen Content 17.7 Vol % Arterial Blood Carboxyhemoglobin 1.4 % Arterial Blood Methemoglobin 0.4 % Blood Gas Hemoglobin 11.9 G/DL Oxygen Delivery Device VENTILATOR Blood Gas Ventilator Setting 16/500/PEEP5 Blood Gas Inspired Oxygen 100 % Nasal Screen MRSA (PCR) MRSA NOT DETECTED Test 07/26/17 18:32 07/26/17 18:36 07/26/17 20:50 07/27/17 00:15 Blood Urea Nitrogen 32 MG/DL Creatinine 1.18 MG/DL Random Glucose 166 MG/DL Calcium Level 8.5 MG/DL Sodium Level 134 MEQ/L Potassium Level 5.6 MEQ/L Chloride Level 104 MEQ/L Carbon Dioxide Level 23.4 MEQ/L Anion Gap 7 MEQ/L Estimat Glomerular Filtration Rate 62 ML/MIN Lactic Acid Level 2.2 mmol/L 1.4 mmol/L Urine Color YELLOW Urine Turbidity HAZY Urine pH 5.0 Urine Specific [place] 1.015 Urine Protein 30 mg/dL Urine Glucose (UA) NEG mg/dL Urine Ketones NEG mg/dL Urine Occult Blood MOD Urine Nitrite NEG Urine Bilirubin NEG Urine Urobilinogen 2.0 MG/DL Urine Leukocyte Esterase MOD Urine RBC 10 /hpf Urine WBC 8 /hpf Urine WBC Clumps RARE Urine Amorphous Sediment RARE Urine Bacteria FEW /hpf Urine Hyaline Casts 61 /lpf Urine Mucus FEW /lpf Microscopic Urinalysis Comment CATH-CULTURE IND Total Creatine Kinase 68 U/L Troponin I LESS THAN 0.02 NG/ML Urine Opiates Screen NEG Urine Barbiturates Screen NEG Urine Amphetamines Screen NEG Urine Benzodiazepines Screen POS Urine Cocaine Screen NEG Urine Cannabinoids Screen NEG Test 07/27/17 03:40 White Blood Count 16.5 TH/MM3 Red Blood Count 3.92 MIL/MM3 Hemoglobin 13.7 GM/DL Hematocrit 39.7 % Mean Corpuscular Volume 101.4 FL Mean Corpuscular Hemoglobin 35.0 PG Mean Corpuscular Hemoglobin Concent 34.5 % Red Cell Distribution Width 14.8 % Platelet Count 128 TH/MM3 Mean Platelet Volume 7.7 FL Neutrophils (%) (Auto) 84.3 % Lymphocytes (%) (Auto) 8.2 % Monocytes (%) (Auto) 7.3 % Eosinophils (%) (Auto) 0.1 % Basophils (%) (Auto) 0.1 % Neutrophils # (Auto) 13.9 TH/MM3 Lymphocytes # (Auto) 1.3 TH/MM3 Monocytes # (Auto) 1.2 TH/MM3 Eosinophils # (Auto) 0.0 TH/MM3 Basophils # (Auto) 0.0 TH/MM3 CBC Comment AUTO DIFF Differential Comment AUTO DIFF CONFIRMED Blood Urea Nitrogen 28 MG/DL Creatinine 1.01 MG/DL Random Glucose 262 MG/DL Total Protein 7.4 GM/DL Albumin 2.1 GM/DL Calcium Level 7.6 MG/DL Alkaline Phosphatase 72 U/L Aspartate Amino Transf (AST/SGOT) 104 U/L Alanine Aminotransferase (ALT/SGPT) 70 U/L Total Bilirubin 2.8 MG/DL Sodium Level 133 MEQ/L Potassium Level 5.5 MEQ/L Chloride Level 106 MEQ/L Carbon Dioxide Level 21.4 MEQ/L Anion Gap 6 MEQ/L Estimat Glomerular Filtration Rate 74 ML/MIN Imaging Last Impressions Chest X-Ray 07/26/17 1404 Signed Impressions: Service Date/Time: Wednesday, July 26, 2017 14:49 - CONCLUSION: 1. ETT approximately 1.5 cm above the melinda. NGT in the stomach. 2. No acute radiographic cardiopulmonary abnormality. Jim Mckenna MD Assessment and Plan Problem List: (1) Hyperkalemia ICD Codes: E87.5 - Hyperkalemia Status: Acute Plan: Improving, medical mgt per [facility] (2) Symptomatic bradycardia ICD Codes: R00.1 - Bradycardia, unspecified Status: Acute Plan: Likely due to his hyperkalemia, now improved on dopamine, and w/ lower potassium. Continue to have backup pacing available. Assessment and Plan Continue current supportive care, do not feel invasive cardiac procedures indicated at this time. Further plan based on neurological recovery. Gonzalo Paz MD Jul 27, 2017 09:29
[2017-07-27] MEDS: PIPERACIL-TAZO 4.5 GM PREMIX 100 ML IV SCH ×3 (09:47→21:40)
--- NOTE | 2017-07-27 11:23 | RADRPT ---
EXAM DATE/TIME: 07/27/2017 11:06 [facility] COMPARISON: No previous studies available for comparison. INDICATIONS : Altered mental status, found unresponsive. RADIATION DOSE: 45.81 CTDIvol (mGy) MEDICAL HISTORY : Cardiovascular disease. Chronic obstructive pulmonary disease. A-fib SURGICAL HISTORY : None. ENCOUNTER: Initial ACUITY: 1 day PAIN SCALE: Non-responsive LOCATION: cranial TECHNIQUE: Multiple contiguous axial images were obtained of the head. Using automated exposure control and adj ustment of the mA and/or kV according to patient size, radiation dose was kept as low as reasonably a chievable to obtain optimal diagnostic quality images. DICOM format image data is available electro nically for review and comparison. FINDINGS: CEREBRUM: The ventricles are normal for age. No evidence of midline shift, mass lesion, hemorrhage or acute in farction. No extra-axial fluid collections are seen. POSTERIOR FOSSA: The cerebellum and brainstem are intact. The 4th ventricle is midline. The cerebellopontine angle i s unremarkable. EXTRACRANIAL: The visualized portion of the orbits is intact. There is a small amount of fluid in the posterior asp ect of both maxillary sinuses. SKULL: The calvaria is intact. No evidence of skull fracture. CONCLUSION: 1. No acute intracranial abnormality. 2. There is a small amount of fluid in the posterior aspect of both maxillary sinuses. Jayden Olvera MD on July 27, 2017 at 11:20 Board Certified Radiologist. This report was verified electronically.
--- NOTE | 2017-07-27 11:30 | RADRPT ---
EXAM DATE/TIME: 07/27/2017 11:09 [facility] COMPARISON: CHEST SINGLE AP, July 26, 2017, 20:48. INDICATIONS : Sepsis,aspiration. RADIATION DOSE: 5.05 CTDIvol (mGy) MEDICAL HISTORY : Cardiovascular disease. Chronic obstructive pulmonary disease. A fib SURGICAL HISTORY : None. ENCOUNTER: Initial ACUITY: 1 day PAIN SCALE: Non-responsive LOCATION: chest TECHNIQUE: Volumetric scanning of the chest was performed. Using automated exposure control and adjustment of t he mA and/or kV according to patient size, radiation dose was kept as low as reasonably achievable to obtain optimal diagnostic quality images. DICOM format image data is available electronically for r eview and comparison. Follow-up recommendations for detected pulmonary nodules are based at a minimum on nodule size and pa tient risk factors according to Fleischner Society Guidelines. FINDINGS: There is an endotracheal tube identified within the trachea and terminating at the level of the clavi cles. There is a gastric tube present terminating within the stomach. LUNGS: There is diffuse centrilobular emphysematous change. No evidence of focal airspace consolidation. PLEURAE: There is no pleural thickening or pleural effusion. MEDIASTINUM: Mediastinum is significant for a left-sided SVC with a central line seen within the lumen and termina ting within the region of the coronary sinus. The heart size is normal. There is a small right sided SVC present as well. AXILLAE: Within normal limits. No lymphadenopathy. MUSCULOSKELETAL: Within normal limits for patient age. MISCELLANEOUS: The imaged portion of the abdomen is significant for moderate ascites. The liver is decreased in size heterogeneous in attenuation and demonstrates cirrhotic morphology. There are numerable perirenal va rices present CONCLUSION: 1. There is a left-sided SVC present with a central line identified within the lumen and terminating within the region of the coronary sinus. 2. Moderate ascites with cirrhotic changes of the liver and multiple varices consistent with portal h ypertension. 3. Probably positioned endotracheal tube and orogastric tube. 4. Moderate to severe centrilobular emphysematous change. Monika Sims MD on July 27, 2017 at 11:19 Board Certified Radiologist. This report was verified electronically.
--- NOTE | 2017-07-27 13:25 | RADRPT ---
EXAM DATE/TIME: 07/27/2017 12:06 [facility] COMPARISON: No previous studies available for comparison. INDICATIONS : Increased lab values. MEDICAL HISTORY : Chronic obstructive pulmonary disease. Atrial fibrillation. Asthma. Cancer. SURGICAL HISTORY : None. ENCOUNTER: Initial ACUITY: 1 day PAIN SCORE: Nonresponsive. LOCATION: Bilateral upper quadrant MEASUREMENTS: LIVER: 13.5 cm length COMMON DUCT: 4 mm RIGHT KIDNEY: 10.7 x 4.0 x 4.3 cm SPLEEN: 11.4 cm length FINDINGS: LIVER: Increased heterogenous echotexture without focal lesion or ductal dilatation. Significant nodularity consistent with cirrhosis. Did not demonstrate adequate color flow in the portal vein and may be occ luded COMMON DUCT: No intraluminal mass or stone visualized. GALLBLADDER: Contains numerous stones, however demonstrates no wall thickening or pericholecystic fluid. PANCREAS: The visualized portions are within normal limits. RIGHT KIDNEY: No hydronephrosis, stone or mass. SPLEEN: No focal lesion. CONCLUSION: Cirrhosis of liver with surrounding ascites and possible occlusion of the portal vein. Gallstones. Rafael Breaux MD on July 27, 2017 at 13:22 Board Certified Radiologist. This report was verified electronically.
[2017-07-27] MEDS ORDERED: SODIUM POLYSTYRENE SULFONATE SUSP 15 GM/60 ML CUP PO ONE (15:45)
[2017-07-27] MEDS ORDERED: DEXTROSE 50% IN WATER 50 ML SYRINGE IV PUSH ONE (15:45)
[2017-07-27] MEDS ORDERED: SODIUM BICARBONATE 8.4% INJ 50 MEQ/50 ML SYR IV PUSH ONE (16:00)
[2017-07-27 16:15] LABS: BLOOD GAS BASE EXCESS -7.1 mmol/L (-2-2); BLOOD GAS CARBOXYHEMOGLOBIN 1.8 % (0-4); BLOOD GAS HCO3 17 mmol/L (22-26); BLOOD GAS METHEMOGLOBIN 1.1 % (0-2); BLOOD GAS O2 HGB SATURATION 97 % (90-100); BLOOD GAS OXYGEN CONTENT 18.5 Vol % (12.0-20.0); BLOOD GAS PCO2 32 mmHg (38-42); BLOOD GAS PO2 154 mmHg (61-120); BLOOD GAS TOTAL HGB 13.4 G/DL (12.0-16.0); CRITICAL VALUE NO; OXYGEN DEVICE VENTILATOR; TEMP CORR TO 98.6
[2017-07-27 16:16] LABS: DRAW SITE ART LINE; FIO2 40 %; STAT YES; VENT SETTINGS PRVC/AC500/16
[2017-07-27] MEDS ORDERED: CALCIUM GLUCONATE INJ 1 GM in SODIUM CHLORIDE 0.9% INJ 100 ML IV ONE (17:00)
--- NOTE | 2017-07-27 19:43 | MB ---
cc: SOCORRO ZAMUDIO MD DATE OF CONSULTATION: 07/27/2017. REASON FOR CONSULTATION: Hyperkalemia and acute renal failure management. HISTORY OF PRESENT ILLNESS: This is a 66-year-old male with history of atrial fibrillation, chronic hepatitis C and apparent congestive heart failure. The patient was in retirement and was apparently found down in his cell yesterday. CPR was initiated and the patient was resuscitated and required transcutaneous pacing. The patient became unresponsive and was intubated in the field. Upon presentation to the hospital the patient had hypotension with bradycardia and transcutaneous pacing was started. He apparently had initial heart rate in the 20s. The patient was started with a dopamine drip. He had been on digoxin as well as Aldactone and propranolol and potassium. His initial potassium level was 6.7. The patient was empirically treated with Digibind for digoxin potential toxicity. Of note, his digoxin level was 0.3; however, unclear if this was before or after the Digibind was given. The patient was medically managed for hyperkalemia with insulin as well as calcium and Kayexalate and sodium bicarbonate. His EKGs revealed junctional rhythms and he continues on transcutaneous pacing at this time. The patient is intubated in the ICU and his history was revealed from the chart. His renal function has otherwise been relatively normal with a creatinine level of 1.20 upon presentation last night and a creatinine of 1.0 today. Over the last day, the patient has had approximately 650 mL of urine output recorded. Nephrology was consulted for further evaluation of hyperkalemia. PAST MEDICAL HISTORY: His past medical history includes: 1. Atrial fibrillation. 2. History of positive PPD with treatment in the past. 3. Chronic hepatitis C. 4. COPD. 5. Apparent congestive heart failure. 6. Cirrhosis. REVIEW OF SYSTEMS: Unobtainable as the patient is intubated and sedated at this time. MEDICATIONS IN LONGTERM: 1. DuoNeb inhalers. 2. Oxygen two liters nasal cannula. 3. Lasix 20 milligrams p.o. daily. 4. Flomax 0.4 milligrams daily. 5. Protonix 40 milligrams daily. 6. Klor-Con potassium 10 milliequivalents p.o. daily. 7. Aldactone 50 milligrams p.o. twice a day. 8. Diltiazem 120 milligrams p.o. daily. 9. Digoxin 125 micrograms daily. 10. Aspirin 81 milligrams daily. 11. Pepto-Bismol PRN. 12. Propranolol 60 milligrams q. 12. 13. Xopenex inhalers. ALLERGIES: NO KNOWN DRUG ALLERGIES. SOCIAL HISTORY: The patient is an inmate in retirement. PHYSICAL EXAMINATION: GENERAL: At the time of evaluation, the patient is intubated and sedated and in no apparent distress. HEAD, EYES, EARS, NOSE, THROAT: Neck soft supple. CARDIAC: The patient is on transcutaneous pacing. No murmurs, rubs or gallops. PULMONARY: Decreased breath sounds at the bases. Mild rhonchi. ABDOMEN: The abdomen is soft, nontender and nondistended. EXTREMITIES: No edema. LABORATORY FINDINGS: White count 16.5, hemoglobin 13.7, hematocrit 39.7 with platelet count of 128,000. Sodium 133, potassium 6.2, chloride 106, bicarbonate 21.4, BUN 28, creatinine 1.01 with glucose of 262, calcium 7.6. AST 104, ALT 70, alkaline phosphatase 72. CK was 68. Troponin less than 0.02. Urinalysis with 30 protein, moderate occult blood, moderate leukocytes, a few bacteria, 61 hyaline casts. Toxicology screen was positive for a digoxin level of 0.3. It is unclear if this was given before or after Digibind. Benzodiazepine was positive. Otherwise negative for opiates, barbiturates, cocaine or cannabinoids. ASSESSMENT AND PLAN: 1. Hyperkalemia: The patient presented with significant hyperkalemia. It is unclear if all this hyperkalemia is what precipitated his cardiac events; however, it certainly is reasonable. The patient had significant bradycardia requiring transcutaneous pacing with a heart rate apparently in the 20s and 30s initially. The patient had been on multiple medications which could have contributed to this including propranolol, digoxin, aldactone and potassium supplementation. He is apparently on all these medications for congestive heart failure and cirrhosis. At this point, continue to hold all medications which could be contributing to elevated potassium levels and continued medical management of potassium. His potassium was initially 6.7 and improved down to 5.6 and elevated up to 6.7 again. I discussed this with the intensive care unit team. Continue medical management at this point. There is no acute indication for dialysis at this time; however, if the potassium is unable to be controlled, emergent dialysis may be necessary. Continue close monitoring of potassium levels. At this point, the patient is making some urine output and this is encouraging for some improvement of potassium. It is unclear if the patient may have any chronic hyperkalemia. No labs are available here. An RTA may be considered; however, given all his medications with potassium supplementation, these are the most likely culprit. Continue to monitor and may continue further evaluation for RTA type IV should he have ongoing hyperkalemia in the next 24 to 48 hours. There are no signs of any pseudo- hyperkalemia otherwise. No significant acidosis to explain hyperkalemia otherwise. No findings of any rhabdomyolysis at this point, however, will repeat CK level. The initial CK level was 68. Given ongoing urine output, his potassium level should improve. The other possibility was that Digoxin toxicity may have contributed to this. His digoxin levels are within normal limits now and he was given Digibind however with the history of events, I am unclear whether this Digibind was given before or after the Digoxin level was drawn. Continue closely monitoring. Continue with medical management at this point. 2. Renal function: The patient has relatively stable renal function with a creatinine of 1.0 now. He did have significant hyaline casts on his urinalysis and the patient did undergo a cardiac resuscitation for his bradycardia. Given his decreased perfusion, there is a risk of possible renal failure in the upcoming days; however, continue with aggressive fluid repletion and the patient is on IV fluids at this time. Continue with pressor support and wean as tolerated. Continue to closely monitor. 3. Bradycardia: The patient is on transcutaneous pacing and is followed up with cardiology here. His troponin level was less than 0.02. It is possible that hyperkalemia may have precipitated this; however, continue to closely monitor. 4. Atrial fibrillation: Continue transcutaneous pacing. 5. Hepatitis C: The patient has apparent cirrhosis per imaging. Continue to monitor. 6. COPD: The patient has apparently been on home oxygen. He is intubated at this time. Continue to monitor with the intensive care unit team. His white is slightly elevated and Zosyn has been empirically started as well. 7. Congestive heart failure: The patient had been on Lasix in retirement. Continue to hold at this point and closely monitor. 8. Benign prostate hypertrophy. The patient had been on Flomax in retirement. Continue with Hernandez catheter at this point. MD BONIFACIO Stover/CRISTIAN /5:27 PM /7:19 PM [email or web address]
[2017-07-28] VITALS (26 sets, daily range): BP systolic 83–132; BP diastolic 52–67; PULSE 43–97; RESP 17–18; TEMP 98.1–99; O2SAT 96–100
[2017-07-28] MEDS: RESP: ALBUTEROL 2.5 MG/IPRATROPIUM 0.5 MG NEB (SCH) INH ×4 (03:25→20:51)
[2017-07-28] MEDS: CHLORHEXIDINE GLUCONATE 2 % 1 PACK (2 CLOTHS) TOP SCH (04:00)
[2017-07-28] MEDS: INSULIN NovoLIN REGULAR SUPPLEMENTAL SCALE SQ SCH ×6 (04:00→20:00)
[2017-07-28] MEDS: DEXT 5%-NACL 0.9% 1000 ML INJ 1,000 ML IV SCH ×2 (04:11→10:04)
[2017-07-28] MEDS: NOREPINEPHRINE-DEXTROSE DRIP 250 ML IV PRN (04:12)
[2017-07-28] MEDS: HYDROCORTISONE SOD SUCCINATE 100 MG VIAL IV PUSH SCH ×4 (04:27→21:29)
[2017-07-28] MEDS: PIPERACIL-TAZO 4.5 GM PREMIX 100 ML IV SCH ×4 (04:27→21:29)
[2017-07-28 04:52] LABS: AUTOMATED NEUTROPHIL # 12.1 TH/MM3 (1.8-7.7); BASOPHIL % 0.1 % (0.0-2.0); HEMATOCRIT 35.6 % (39.0-51.0); LYMPH % 6.5 % (9.0-44.0); LYMPHOCYTE # 0.9 TH/MM3 (1.0-4.8); MEAN CELL VOLUME 100.2 FL (80.0-100.0); MEAN CORPUSCULAR HEMOGLOBIN 35.6 PG (27.0-34.0); MEAN CORPUSCULAR HGB CONC 35.5 % (32.0-36.0); MONO % 5.7 % (0.0-8.0); NEUT % 87.7 % (16.0-70.0); PLATELET COUNT 58 TH/MM3 (150-450); RED BLOOD COUNT 3.55 MIL/MM3 (4.50-5.90); RED CELL DISTRIBUTION WIDTH 15.7 % (11.6-17.2); WHITE BLOOD COUNT 13.8 TH/MM3 (4.0-11.0)
[2017-07-28 04:59] LABS: ALT (GPT) 55 U/L (12-78); ANION GAP 6 MEQ/L (5-15); AST (GOT) 73 U/L (15-37); BICARBONATE 21.7 MEQ/L (21.0-32.0); BLOOD UREA NITROGEN 22 MG/DL (7-18); CHLORIDE 108 MEQ/L (98-107); GLOMERULAR FILTRATION RATE 93 ML/MIN (>89); MAGNESIUM 1.3 MG/DL (1.5-2.5); POTASSIUM 4.5 MEQ/L (3.5-5.1); SODIUM (NA) 136 MEQ/L (136-145)
[2017-07-28 05:01] LABS: ALKALINE PHOSPHATASE 51 U/L (45-117); TOTAL BILIRUBIN ADULT 3.7 MG/DL (0.2-1.0)
[2017-07-28 05:03] LABS: CREATINE KINASE 42 U/L (39-308)
[2017-07-28 05:26] LABS: HEMO FLAGS AUTO DIFF
[2017-07-28 05:28] LABS: BANDS 36 % (0-6); METAMYELOCYTES 1 % (0-1); NEUTROPHIL # MANUAL DIFF 13.4 TH/MM3 (1.8-7.7); POLYS (SEG NEUTROPHILS) 60 % (16-70); SCAN/DIFF FINAL DIFF MANUAL; WBC DIFF SAMPLE 100
[2017-07-28 05:29] LABS: PLATELET ESTIMATE SMEAR LOW (NORMAL); PLATELET MORPHOLOGY NORMAL (NORMAL)
[2017-07-28] MEDS ORDERED: POTASSIUM CHLORIDE 25 MEQ EFFERVESCENT TAB PO PRN (07:15)
[2017-07-28] MEDS ORDERED: POTASSIUM PHOSPHATE INJ 30 MMOL in SODIUM CHLOR 0.9% 250 ML INJ 250 ML IV PRN (07:15)
[2017-07-28] MEDS ORDERED: MAGNESIUM SULFATE INJ 4 GM in SODIUM CHLORIDE 0.9% INJ 92 ML IV PRN (07:15)
[2017-07-28] MEDS ORDERED: POTASSIUM PHOSPHATE MONOBASIC 500 MG TAB PO/TUBE PRN (07:15)
[2017-07-28] MEDS ORDERED: SODIUM PHOSPHATE INJ 30 MMOL in SODIUM CHLOR 0.9% 250 ML INJ 240 ML IV PRN (07:15)
[2017-07-28] MEDS ORDERED: MAGNESIUM OXIDE 400 MG TAB PO PRN (07:15)
[2017-07-28] MEDS ORDERED: MAGNESIUM SULFATE INJ 2 GM in SODIUM CHLORIDE 0.9% INJ 96 ML IV PRN (07:15)
[2017-07-28] MEDS ORDERED: POTASSIUM PHOSPHATE MONOBASIC 500 MG TAB PO PRN (07:15)
[2017-07-28] MEDS ORDERED: POTASSIUM CHLOR 20 MEQ PREMIX 100 ML IV PRN ×2 (07:15)
[2017-07-28] MEDS ORDERED: POTASSIUM CHLOR 40 MEQ PREMIX 100 ML IV PRN ×2 (07:15)
--- NOTE | 2017-07-28 07:24 | HHI.CCPN ---
Subjective Remarks/Hospital Course The patient is a 66-year-old male with past medical history of COPD, hepatitis C , atrial fibrillation who presented to [facility] ED after he was found down in his cell at a local correction. CPR was initiated prior to his apparent DNR being discovered. EMS arrived and they were able to get him back with transcutaneous pacing, however, during that time the patient wished to have everything done. He became unresponsive and was intubated in the field and he has been a transcutaneously paced. On arrival to the emergency room, the patient was bradycardic and hypotensive. He was seen by Dr. Paz and started on dopamine drip currently at 10 mcg. The patient was given Digibind empirically. however, his Digoxin level came back subtherapeutic at 0.3. His laboratory data significant for hyperkalemia with potassium level 6.7, creatinine of 1.21. The patient scheduled to receive 10 units IV insulin D50, calcium, sodium bicarb and kayexalate for treatment of his hyperkalemia. EKG showed junctional rhythm. Intraventricular conduction delay with a rate of 33 beats per minute. The chest x-ray in the ER showed ET tube approximately 1.5 cm above the melinda. No acute radiographic cardiopulmonary abnormalities identified. His troponin level was less than 0.02 with total CK of 80. The rest of the history is limited as the patient is intubated. 07/27: Patient remains sedated and intubated. On Dopamine 12 mics, Levophed 11 mics. K 5.5 this morning. Afebrile, transcutaneously paced. 07/28 No events overnight. Off sedation Levophed down 2 mics, Dopamine [address] brain yesterday no acute findings. Objective Vital Signs Date Time Temp Pulse Resp B/P (MAP) Pulse Ox O2 Delivery O2 Flow Rate FiO2 07/28/17 04:12 57 122/63 07/28/17 03:23 100 40 07/28/17 00:00 99.0 18 07/26/17 17:00 Ventilator Intake and Output 07/28/17 07/28/17 07/29/17 08:00 16:00 00:00 Intake Total 3862 ml Balance 3862 ml Result Diagram: 07/28/17 0410 07/28/17 0410 Other Results Laboratory Tests Test 07/27/17 12:40 07/27/17 16:10 07/27/17 18:00 07/28/17 04:10 Potassium Level 6.2 MEQ/L 5.1 MEQ/L 4.5 MEQ/L Blood Gas Puncture Site ART LINE Blood Gas Patient Temperature 98.6 Blood Gas HCO3 17 mmol/L Blood Gas Base Excess -7.1 mmol/L Blood Gas Oxygen Saturation 97 % Arterial Blood pH 7.35 Arterial Blood Partial Pressure CO2 32 mmHg Arterial Blood Partial Pressure O2 154 mmHg Arterial Blood Oxygen Content 18.5 Vol % Arterial Blood Carboxyhemoglobin 1.8 % Arterial Blood Methemoglobin 1.1 % Blood Gas Hemoglobin 13.4 G/DL Oxygen Delivery Device VENTILATOR Blood Gas Ventilator Setting [facility]/AC500/16 Blood Gas Inspired Oxygen 40 % White Blood Count 13.8 TH/MM3 Red Blood Count 3.55 MIL/MM3 Hemoglobin 12.7 GM/DL Hematocrit 35.6 % Mean Corpuscular Volume 100.2 FL Mean Corpuscular Hemoglobin 35.6 PG Mean Corpuscular Hemoglobin Concent 35.5 % Red Cell Distribution Width 15.7 % Platelet Count 58 TH/MM3 Mean Platelet Volume 7.5 FL Neutrophils (%) (Auto) 87.7 % Lymphocytes (%) (Auto) 6.5 % Monocytes (%) (Auto) 5.7 % Eosinophils (%) (Auto) 0.0 % Basophils (%) (Auto) 0.1 % Neutrophils # (Auto) 12.1 TH/MM3 Lymphocytes # (Auto) 0.9 TH/MM3 Monocytes # (Auto) 0.8 TH/MM3 Eosinophils # (Auto) 0.0 TH/MM3 Basophils # (Auto) 0.0 TH/MM3 CBC Comment AUTO DIFF Differential Total Cells Counted 100 Neutrophils % (Manual) 60 % Band Neutrophils % 36 % Lymphocytes % 3 % Neutrophils # (Manual) 13.4 TH/MM3 Metamyelocytes 1 % Differential Comment FINAL DIFF MANUAL Platelet Estimate LOW Platelet Morphology Comment NORMAL Blood Urea Nitrogen 22 MG/DL Creatinine 0.83 MG/DL Random Glucose 191 MG/DL Total Protein 6.1 GM/DL Albumin 1.6 GM/DL Calcium Level 7.6 MG/DL Phosphorus Level 2.8 MG/DL Magnesium Level 1.3 MG/DL Alkaline Phosphatase 51 U/L Aspartate Amino Transf (AST/SGOT) 73 U/L Alanine Aminotransferase (ALT/SGPT) 55 U/L Total Bilirubin 3.7 MG/DL Sodium Level 136 MEQ/L Chloride Level 108 MEQ/L Carbon Dioxide Level 21.7 MEQ/L Anion Gap 6 MEQ/L Estimat Glomerular Filtration Rate 93 ML/MIN Total Creatine Kinase 42 U/L Imaging Last Impressions Liver Ultrasound 07/27/17 0000 Signed Impressions: Service Date/Time: Thursday, July 27, 2017 12:06 - CONCLUSION: Cirrhosis of liver with surrounding ascites and possible occlusion of the portal vein. Gallstones. Rafael Breaux MD Chest CT 07/27/17 0000 Signed Impressions: Service Date/Time: Thursday, July 27, 2017 11:09 - CONCLUSION: 1. There is a left-sided SVC present with a central line identified within the lumen and terminating within the region of the coronary sinus. 2. Moderate ascites with cirrhotic changes of the liver and multiple varices consistent with portal hypertension. 3. Probably positioned endotracheal tube and orogastric tube. 4. Moderate to severe centrilobular emphysematous change. Monika Sims MD Chest X-Ray 07/26/17 1404 Signed Impressions: Service Date/Time: Wednesday, July 26, 2017 14:49 - CONCLUSION: 1. ETT approximately 1.5 cm above the melinda. NGT in the stomach. 2. No acute radiographic cardiopulmonary abnormality. Jim Mckenna MD Head CT 07/26/17 0000 Signed Impressions: Service Date/Time: Thursday, July 27, 2017 11:06 - CONCLUSION: 1. No acute intracranial abnormality. 2. There is a small amount of fluid in the posterior aspect of both maxillary sinuses. Jayden Olvera MD Objective Remarks GENERAL: Patient is 66 yo critically ill intubated and on multiple pressors. SKIN: Warm and dry. HEAD: Normocephalic. EYES: No scleral icterus. No injection or drainage. NECK: Supple, trachea midline. No JVD or lymphadenopathy.Intubated. CARDIOVASCULAR: Regular rate and rhythm without murmurs, gallops, or rubs. RESPIRATORY: Breath sounds equal bilaterally. No accessory muscle use. GASTROINTESTINAL: Abdomen soft, non-tender, nondistended. MUSCULOSKELETAL: No cyanosis, or edema. Neuro: Intubated A/P Assessment and Plan 1. Vent dependent respiratory failure. 2. Sinus asad arrest. 3. s/p Hyperkalemia. 4. Hyponatremia. 5. History of atrial fibrillation. 6. COPD. 7. Hepatitis C. 8. Thrombocytopenia. 9 Elevated AST 10 Thrombocytopenia Plan Neuro: Monitor neuro status closely. 07/27: CT brain: No acute findings. For EEG today UDS: + Benzos. Pulm: Continue with vent support and maintain sats above 92%. Bronchodilators, ICU vent bundle. CT chest: Moderate ascites with cirrhotic changes of the liver and multiple varices consistent with portal hypertension. Moderate to severe centrilobular emphysematous change. CV: Continue with pressors (Dopamine, Levophed)maintain HR> 60 and a MAP >65 mmHg. s/p Digibind empirically in ED, Digoxin level: 0.3. Cards is following- Dr. Paz. For 2-D echo to evaluate LV function and to rule out regional wall motion abnormalities. : Monitor renal function, I/O's, electrolytes replacement as needed. Will need Mag replacement today Decrease D5NS@75ml/hr, diurese with Bumex 1mg x1. GI: On Protonix 40mg daily, tube feeds- Glucerna 1.5 with goal rate 45ml/hr Monitor LFT's, US liver: Cirrhosis of liver with surrounding ascites and possible occlusion of the portal vein. Gallstones. Will proceed with CT guided paracentesis today ID: On Zosyn monitor for signs of infections ( Fever, WBC) Pancultured 07/27 ( Blood, sputum, urine): NGTD Heme: Monitor CBC Endo:On Medium SSI with accuchecks for glycemic control GI prophylaxis- Protonix 40mg daily DVT prophylaxis- SCD's, not on chemical AC prophylaxis due to thrombocytopenia Lines: Right Rad Art line, Left subclavian CVP placed 07/26 Patient is critically ill with resp failure , s/p sinus arrest likely 2nd hyperkalemia and likely now with anoxic brain injury CCT 30 mins Carlton Lopez MD Jul 28, 2017 07:24
[2017-07-28] MEDS ORDERED: BUMETANIDE INJ 1 MG/4 ML VIAL IV PUSH ONE (07:45)
--- NOTE | 2017-07-28 08:37 | RADRPT ---
EXAM DATE/TIME: 07/28/2017 08:20 [place] COMPARISON: No previous studies available for comparison. INDICATIONS : Ascites. MEDICAL HISTORY : Chronic obstructive pulmonary disease. Congestive heart failure. Cirrhosis. Afib. Chronic hepatitis C . SURGICAL HISTORY : None. ENCOUNTER: Subsequent ACUITY: 2 days PAIN SCORE: Nonresponsive. LOCATION: Abdomen. AREA EVALUATED: Abdominal quadrants. FINDINGS: Imaging of the abdomen and pelvis was performed to evaluate for ascites for possible paracentesis. O nly minimal ascites is present in adequate for paracentesis. CONCLUSION: 1. Trace ascites Willian Parks MD on July 28, 2017 at 8:36 Board Certified Radiologist. This report was verified electronically.
[2017-07-28] MEDS: DOCUSATE SODIUM 50 MG/SENNA 8.6 MG TAB PO SCH ×2 (09:00→21:28)
--- NOTE | 2017-07-28 09:11 | PD.CARD.PN ---
Subjective Subjective Remarks Heart rate much improved, now natively in the 70s, though still on dopamine ggt. Objective Medications Administered Medications Medications (Trade) Dose Ordered Sig/Ned Route PRN Reason Start Time Stop Time Status Last Admin Dose Admin Pantoprazole Sodium (Protonix Inj) 40 mg DAILY IV PUSH 07/26/17 16:00 07/27/17 07:55 Albuterol/ Ipratropium (Duoneb Neb) 1 ampule Q6HR NEB INH 07/26/17 16:00 07/28/17 07:34 Senna/Docusate Sodium (Yanet-Colace) 1 tab BID PO 07/26/17 21:00 07/27/17 21:40 Dopamine HCl/ Dextrose 500 ml @ 26.25 mls/ hr TITRATE PRN IV SYMPTOMATIC BRADYCARDIA 07/26/17 16:30 07/27/17 21:52 Dextrose/Sodium Chloride 1,000 ml @ 75 mls/hr [id number] IV 07/26/17 17:00 07/28/17 04:11 Norepinephrine Bitartrate 250 ml @ 7.5 mls/hr TITRATE PRN IV Blood pressure management 07/26/17 17:15 07/28/17 04:12 Hydrocortisone Sodium Succinate (SoluCORTEF INJ) 50 mg Q6H IV PUSH 07/27/17 14:00 07/28/17 04:27 Piperacillin Sod/ Tazobactam Sod 100 ml @ 200 mls/hr Q6H IV 07/27/17 09:00 07/28/17 04:27 Insulin Human Regular (NovoLIN R SUPPLEMENTAL SCALE) 1 Q4HR SQ 07/27/17 09:00 07/28/17 04:00 Vital Signs / I&O Vital Signs Date Time Temp Pulse Resp B/P (MAP) Pulse Ox O2 Delivery O2 Flow Rate FiO2 07/28/17 07:36 100 40 07/28/17 06:00 58 07/28/17 04:12 57 122/63 07/28/17 04:00 54 07/28/17 04:00 40 07/28/17 04:00 98.4 65 18 122/64 (83) 96 127/67 (87) 07/28/17 03:23 100 40 07/28/17 02:00 43 07/28/17 01:06 43 07/28/17 00:24 100 40 07/28/17 00:00 40 07/28/17 00:00 99.0 51 18 132/62 (85) 98 124/53 (76) 07/28/17 00:00 49 07/27/17 22:00 59 07/27/17 21:52 87 132/76 07/27/17 21:14 100 40 07/27/17 20:00 99.6 51 18 144/67 (92) 98 124/53 (76) 07/27/17 20:00 40 07/27/17 20:00 43 07/27/17 19:24 100 40 07/27/17 18:00 61 07/27/17 17:51 54 128/57 07/27/17 17:30 58 118/58 (78) 100 120/56 (77) 07/27/17 17:15 65 107/57 (74) 100 110/57 (74) 07/27/17 17:15 65 110/57 07/27/17 17:00 64 116/59 (78) 100 116/59 (78) 07/27/17 16:45 60 116/58 (77) 100 122/58 (79) 07/27/17 16:30 53 115/57 (76) 100 129/56 (80) 07/27/17 16:24 98 40 07/27/17 16:15 55 120/59 (79) 100 120/59 (79) 07/27/17 16:00 59 07/27/17 16:00 40 07/27/17 16:00 97.3 58 87/58 (68) 100 07/27/17 15:45 55 113/57 (75) 100 121/59 (79) 07/27/17 15:30 54 111/56 (74) 100 118/58 (78) 07/27/17 15:15 59 114/57 (76) 100 122/65 (84) 07/27/17 15:00 63 107/59 (75) 100 121/65 (83) 07/27/17 14:57 60 120/64 07/27/17 14:45 61 114/62 (79) 100 119/65 (83) 07/27/17 14:30 61 117/61 (79) 100 114/59 (77) 07/27/17 14:21 61 116/60 07/27/17 14:15 61 114/60 (78) 100 118/60 (79) 07/27/17 14:00 60 07/27/17 14:00 58 115/59 (77) 100 118/59 (78) 07/27/17 13:30 58 116/58 (77) 100 117/60 (79) 07/27/17 13:15 59 106/57 (73) 100 110/60 (77) 07/27/17 13:00 60 117/57 (77) 100 107/62 (77) 07/27/17 12:45 63 109/56 (73) 100 100/61 (74) 07/27/17 12:30 64 94/59 (71) 100 07/27/17 12:28 100 40 07/27/17 12:15 65 90/57 (68) 99 07/27/17 12:00 65 07/27/17 12:00 40 07/27/17 12:00 97.5 65 87/58 (68) 100 07/27/17 11:45 63 87/60 (69) 100 07/27/17 11:30 61 75/52 (60) 90 07/27/17 11:15 55 24 97/69 (78) 100 75/44 (54) 07/27/17 11:10 51 12 100/60 (73) 100 95/66 (76) 07/27/17 11:00 55 99/58 (72) 07/27/17 11:00 55 99/58 07/27/17 10:46 51 85/47 (60) 100 94/54 (67) 07/27/17 10:45 51 95/56 (69) 100 07/27/17 10:30 47 99/54 (69) 100 109/57 (74) 07/27/17 10:30 100 100 07/27/17 10:15 46 98/55 (69) 100 105/59 (74) 07/27/17 10:00 43 07/27/17 10:00 40 07/27/17 10:00 47 112/57 (75) 100 117/60 (79) 07/27/17 09:47 113/57 07/27/17 09:45 41 113/57 (75) 100 128/64 (85) 07/27/17 09:30 43 116/68 (84) 100 124/65 (84) 07/27/17 09:15 64 121/56 (77) 100 120/71 (87) I/O 07/27/17 07/27/17 07/27/17 07/28/17 07/28/17 07/28/17 07:00 15:00 23:00 07:00 15:00 23:00 Intake Total 6445 ml 1200 ml 1110 ml 8331 ml Output Total 650 ml 550 ml 950 ml Balance 5795 ml 1200 ml 560 ml 7381 ml Intake IV Total 6445 ml 1200 ml 1110 ml 8049 ml Tube Feeding 282 ml Output Urine Total 650 ml 550 ml 950 ml Stool Total 0 ml 0 ml Physical Exam GENERAL: intubated, CARDIOVASCULAR: regular rate and rhythm without murmurs, gallops, or rubs. RESPIRATORY: Clear to auscultation. Breath sounds equal bilaterally. No wheezes , rales, or rhonchi. GASTROINTESTINAL: Abdomen soft, non-tender, nondistended. Normal active bowel sounds MUSCULOSKELETAL: Extremities without clubbing, cyanosis, or edema. NEURO: minimally responsive Laboratory Laboratory Tests Test 07/27/17 12:40 07/27/17 16:10 07/27/17 18:00 07/28/17 04:10 Potassium Level 6.2 MEQ/L 5.1 MEQ/L 4.5 MEQ/L Blood Gas Puncture Site ART LINE Blood Gas Patient Temperature 98.6 Blood Gas HCO3 17 mmol/L Blood Gas Base Excess -7.1 mmol/L Blood Gas Oxygen Saturation 97 % Arterial Blood pH 7.35 Arterial Blood Partial Pressure CO2 32 mmHg Arterial Blood Partial Pressure O2 154 mmHg Arterial Blood Oxygen Content 18.5 Vol % Arterial Blood Carboxyhemoglobin 1.8 % Arterial Blood Methemoglobin 1.1 % Blood Gas Hemoglobin 13.4 G/DL Oxygen Delivery Device VENTILATOR Blood Gas Ventilator Setting [facility]/AC500/16 Blood Gas Inspired Oxygen 40 % White Blood Count 13.8 TH/MM3 Red Blood Count 3.55 MIL/MM3 Hemoglobin 12.7 GM/DL Hematocrit 35.6 % Mean Corpuscular Volume 100.2 FL Mean Corpuscular Hemoglobin 35.6 PG Mean Corpuscular Hemoglobin Concent 35.5 % Red Cell Distribution Width 15.7 % Platelet Count 58 TH/MM3 Mean Platelet Volume 7.5 FL Neutrophils (%) (Auto) 87.7 % Lymphocytes (%) (Auto) 6.5 % Monocytes (%) (Auto) 5.7 % Eosinophils (%) (Auto) 0.0 % Basophils (%) (Auto) 0.1 % Neutrophils # (Auto) 12.1 TH/MM3 Lymphocytes # (Auto) 0.9 TH/MM3 Monocytes # (Auto) 0.8 TH/MM3 Eosinophils # (Auto) 0.0 TH/MM3 Basophils # (Auto) 0.0 TH/MM3 CBC Comment AUTO DIFF Differential Total Cells Counted 100 Neutrophils % (Manual) 60 % Band Neutrophils % 36 % Lymphocytes % 3 % Neutrophils # (Manual) 13.4 TH/MM3 Metamyelocytes 1 % Differential Comment FINAL DIFF MANUAL Platelet Estimate LOW Platelet Morphology Comment NORMAL Blood Urea Nitrogen 22 MG/DL Creatinine 0.83 MG/DL Random Glucose 191 MG/DL Total Protein 6.1 GM/DL Albumin 1.6 GM/DL Calcium Level 7.6 MG/DL Phosphorus Level 2.8 MG/DL Magnesium Level 1.3 MG/DL Alkaline Phosphatase 51 U/L Aspartate Amino Transf (AST/SGOT) 73 U/L Alanine Aminotransferase (ALT/SGPT) 55 U/L Total Bilirubin 3.7 MG/DL Sodium Level 136 MEQ/L Chloride Level 108 MEQ/L Carbon Dioxide Level 21.7 MEQ/L Anion Gap 6 MEQ/L Estimat Glomerular Filtration Rate 93 ML/MIN Total Creatine Kinase 42 U/L Imaging Last Impressions Liver Ultrasound 07/27/17 0000 Signed Impressions: Service Date/Time: Thursday, July 27, 2017 12:06 - CONCLUSION: Cirrhosis of liver with surrounding ascites and possible occlusion of the portal vein. Gallstones. Rafael Breaux MD Chest CT 07/27/17 0000 Signed Impressions: Service Date/Time: Thursday, July 27, 2017 11:09 - CONCLUSION: 1. There is a left-sided SVC present with a central line identified within the lumen and terminating within the region of the coronary sinus. 2. Moderate ascites with cirrhotic changes of the liver and multiple varices consistent with portal hypertension. 3. Probably positioned endotracheal tube and orogastric tube. 4. Moderate to severe centrilobular emphysematous change. Monika Sims MD Chest X-Ray 07/26/17 [id number] Signed Impressions: Service Date/Time: Wednesday, July 26, 2017 14:49 - CONCLUSION: 1. ETT approximately 1.5 cm above the melinda. NGT in the stomach. 2. No acute radiographic cardiopulmonary abnormality. Jim Mckenna MD Head CT 07/26/17 0000 Signed Impressions: Service Date/Time: Thursday, July 27, 2017 11:06 - CONCLUSION: 1. No acute intracranial abnormality. 2. There is a small amount of fluid in the posterior aspect of both maxillary sinuses. Jayden Olvera MD Assessment and Plan Problem List: (1) Hyperkalemia ICD Codes: E87.5 - Hyperkalemia Status: Acute Plan: Improving, medical mgt per ccm (2) Symptomatic bradycardia ICD Codes: R00.1 - Bradycardia, unspecified Status: Acute Plan: Likely due to his hyperkalemia, now improved on dopamine, and w/ lower potassium. No indication for permanent pacing currently. Assessment and Plan Continue current supportive care and wean down dopamine as bp allows, do not feel invasive cardiac procedures indicated at this time. No additional recommendations at this time, will sign off but be available as needed. Gonzalo Paz MD Jul 28, 2017 09:11
--- NOTE | 2017-07-28 09:38 | ECHRPT ---
Indication: eval lv function CONCLUSIONS Very limited study with all views off axis; Would estimate a mild to moderately reduced LVEF of abou t 40- 45%. No major valvular disease seen. BP: / HR: Rhythm: Sinus MEASUREMENTS (Male / Female) Normal Values Technical Quality:Very technically difficult study M-MODE LV Diastolic Diameter MM 7.2 cm 4.2 - 5.9 / 3.9 - 5.3 cm LV Systolic Diameter MM 5.7 cm LV Ejection Fraction MM Teich 40.5 % IVS Diastolic Thickness MM 1.2 cm 0.6 - 1.0 / 0.6 - 0.9 cm LVPW Diastolic Thickness MM 1.2 cm 0.6 - 1.0 / 0.6 - 0.9 cm LV Relative Wall Thickness MM 0.3 0.24 - 0.42 / 0.22 - 0.42 LV Mass Index MM 220.7 g/m 49 - 115 / 43 - 95 g/m DOPPLER AV Peak Velocity 193.0 cm/s AV Peak Gradient 14.9 mmHg LVOT Peak Velocity 140.0 cm/s LVOT Peak Gradient 7.8 mmHg MV Area PHT 3.3 cm Mitral E Point Velocity 61.7 cm/s Mitral A Point Velocity 78.0 cm/s Mitral E to A Ratio 0.8 TR Peak Velocity 195.0 cm/s TR Peak Gradient 15.2 mmHg Right Atrial Pressure 10.0 mmHg Pulmonary Artery Systolic Pressu 25.2 mmHg Right Ventricular Systolic Press 25.2 mmHg FINDINGS LEFT VENTRICLE The left ventricular systolic function is moderately reduced with an estimated ejection fraction in the range of 40-45%. Normal left ventricular size. Wall thickness is normal. There is global left ventricular dysfunction. MITRAL VALVE Trace mitral valve regurgitation. TRICUSPID VALVE There is trace tricuspid valve regurgitation. Gonzalo Paz MD (Electronically Signed) Final Date:28 July 2017 09:38
--- NOTE | 2017-07-28 09:41 | MH ---
cc: RONIT SIMON DATE OF ADMISSION 07/26/2017 1952 HISTORY OF PRESENT ILLNESS The patient is a 66-year-old inmate with a history of atrial fibrillation, PPD, hepatitis C, COPD who was found down in his cell. CPR was initiated prior to his apparent DNR being discovered. EMS arrived and they were able to get him back with transcutaneous pacing and somewhere in the process the patient wished to have everything done. He became unresponsive and was subsequently intubated in the field and transcutaneously paced. On arrival to the emergency room, he was hypotensive and bradycardic. The patient was given Digibind empirically, however, his dig level came back subtherapeutic at 0.3. His laboratory data significant for hyperkalemia was 6.7, creatinine 1.21, troponin less than 0.02. He was seen by Dr. Paz from cardiology service and has been transcutaneously paced. The patient also started on dopamine at 10 mcg. All the history was obtained from reviewing the medical records as the patient is intubated. PAST MEDICAL HISTORY 1. Atrial fibrillation. 2. Positive PPD 3. Hepatitis C 4. COPD. PAST SURGICAL HISTORY Unknown MEDICATIONS In senior living, 1. Propranolol 2. Digoxin 3. Diltiazem 4. Aldactone 5. Potassium, 6. Protonix, 7. Lactulose, 8. Lasix. ALLERGIES NO KNOWN DRUG ALLERGIES. REVIEW OF SYSTEMS Unobtainable PHYSICAL EXAMINATION GENERAL: A 66-year-old male critically ill intubated. VITAL SIGNS: Bradycardic with heart rate in the 40s to 50s, blood pressure 115/44 on dopamine, saturation 100%, vent setting assist control rate of 16, tidal volume 500, PEEP of 5, 100% FIO2. HEENT: Atraumatic, normocephalic pupil equal, round and reactive to light accommodation. Extraocular muscles intact. Conjunctivae pink. Nonicteric sclerae. Oral mucosa within normal. NECK: Supple. No JVD, adenopathy, thyromegaly. Trachea midline. Orally intubated. CARDIOVASCULAR: Bradycardic, normal S1-S2. No murmurs, rubs or gallops noted. ABDOMEN: Soft, nontender, no distension. Positive bowel sounds. EXTREMITIES: No cyanosis, clubbing or edema. NEUROLOGIC: Intubated. CARDIOLOGY STUDIES EKG showed junctional escape beats. When pacemaker was suspended the patient was essentially in asystole. IMAGING STUDIES Chest x-ray showed ET tube above the melinda. No acute cardiopulmonary disease. LABORATORY DATA Sodium of 132, potassium 6.7, chloride 101, CO2 24, BUN 30, creatinine 1.21, glucose of 113. WBC 9.8, hemoglobin 14, hematocrit 39.8, platelet count 101, INR 1.2, PT 13.9, PTT 2.9. Dig level 0.3. IMPRESSION 1. Vent dependent respiratory failure. 2. Randall arrest. 3. Hyperkalemia. 4. Atrial fibrillation. 5. COPD. 6. Hepatitis C 7. Thrombocytopenia. RECOMMENDATIONS 1. Fentanyl infusion for sedation. Monitor neuro status closely. We will need CT scan of the brain when stable to rule out acute intracranial process. 2. Continue with vent support and maintain sats above 92%. 3. Bronchodilators in the form of DuoNeb and we will initiate ICU vent bundle. Decrease FIO2 to 40%. 4. Continue with dopamine to maintain heart rate greater than 60 and MAP greater than 65 mmHg. He is currently transcutaneously paced as well. The patient was seen by Dr. Paz from cardiology service. His randall arrest likely secondary to hyperkalemia and is currently being treated with insulin D50, calcium, bicarb and kayexalate. 5. We will obtain 2-D echo to evaluate LV function and to rule out regional wall motion abnormalities. His initial troponin level less than 0.02 and a TSH is 6.9. 6. Monitor renal function Is and Os and electrolytes closely. The patient is scheduled to receive 10 units of insulin D50, calcium, bicarb, kayexalate. We will repeat potassium level in one hour and we will consult nephrology service. 7. IV fluids in the form of D5 NS at 125 mL an hour. 8. Monitor for signs of infections which include fever and WBC. Hernandez culture if spikes a fever. Check urinalysis with culture if indicated. 9. Keep n.p.o. for now and place on Protonix 40 mg IV daily for GI prophylaxis. 10. Monitor CBC 11. Sliding scale insulin with Accu-Chek q. 4-hour for glycemic control. 12. GI prophylaxis with Protonix 40 mg daily and DVT prophylaxis with SCDs. We will start DVT prophylaxis if CT brain is negative. Critical care time 45 minutes excluding procedures. Case discussed with Dr. Paz and ED staff. MD HALEIGH Dela Cruz/ /5:09 PM /9:37 AM
[2017-07-28] MEDS: PANTOPRAZOLE SODIUM 40 MG VIAL IV PUSH SCH (10:16)
--- NOTE | 2017-07-28 11:05 | HHI.NPPN ---
Subjective Interval History He is unresponsive off sedation. Remains intubated. Renal function is normal, hyperkalemia corrected. (Wanda Ibarra) Review of Systems General General Remarks unable to evaluate (Wanda Ibarra) Objective Data Data Vital Signs Date Time Temp Pulse Resp B/P (MAP) Pulse Ox O2 Delivery O2 Flow Rate FiO2 07/28/17 08:00 40 07/28/17 07:36 100 40 07/28/17 06:00 58 07/28/17 04:12 57 122/63 07/28/17 04:00 54 07/28/17 04:00 40 07/28/17 04:00 98.4 65 18 122/64 (83) 96 127/67 (87) 07/28/17 03:23 100 40 07/28/17 02:00 43 07/28/17 01:06 43 07/28/17 00:24 100 40 07/28/17 00:00 40 07/28/17 00:00 99.0 51 18 132/62 (85) 98 124/53 (76) 07/28/17 00:00 49 07/27/17 22:00 59 07/27/17 21:52 87 132/76 07/27/17 21:14 100 40 07/27/17 20:00 99.6 51 18 144/67 (92) 98 124/53 (76) 07/27/17 20:00 40 07/27/17 20:00 43 07/27/17 19:24 100 40 07/27/17 18:00 61 07/27/17 17:51 54 128/57 07/27/17 17:30 58 118/58 (78) 100 120/56 (77) 07/27/17 17:15 65 107/57 (74) 100 110/57 (74) 07/27/17 17:15 65 110/57 07/27/17 17:00 64 116/59 (78) 100 116/59 (78) 07/27/17 16:45 60 116/58 (77) 100 122/58 (79) 07/27/17 16:30 53 115/57 (76) 100 129/56 (80) 07/27/17 16:24 98 40 07/27/17 16:15 55 120/59 (79) 100 120/59 (79) 07/27/17 16:00 59 07/27/17 16:00 40 07/27/17 16:00 97.3 58 87/58 (68) 100 07/27/17 15:45 55 113/57 (75) 100 121/59 (79) 07/27/17 15:30 54 111/56 (74) 100 118/58 (78) 07/27/17 15:15 59 114/57 (76) 100 122/65 (84) 07/27/17 15:00 63 107/59 (75) 100 121/65 (83) 07/27/17 14:57 60 120/64 07/27/17 14:45 61 114/62 (79) 100 119/65 (83) 07/27/17 14:30 61 117/61 (79) 100 114/59 (77) 07/27/17 14:21 61 116/60 07/27/17 14:15 61 114/60 (78) 100 118/60 (79) 07/27/17 14:00 60 07/27/17 14:00 58 115/59 (77) 100 118/59 (78) 07/27/17 13:30 58 116/58 (77) 100 117/60 (79) 07/27/17 13:15 59 106/57 (73) 100 110/60 (77) 07/27/17 13:00 60 117/57 (77) 100 107/62 (77) 07/27/17 12:45 63 109/56 (73) 100 100/61 (74) 07/27/17 12:30 64 94/59 (71) 100 07/27/17 12:28 100 40 07/27/17 12:15 65 90/57 (68) 99 07/27/17 12:00 65 07/27/17 12:00 40 07/27/17 12:00 97.5 65 87/58 (68) 100 07/27/17 11:45 63 87/60 (69) 100 07/27/17 11:30 61 75/52 (60) 90 07/27/17 11:15 55 24 97/69 (78) 100 75/44 (54) 07/27/17 11:10 51 12 100/60 (73) 100 95/66 (76) 07/27/17 11:00 55 99/58 (72) 07/27/17 11:00 55 99/58 (Wanda Ibarra) -: 07/28/170 07/28/17 041 Microbiology 07/27/17 Aerobic Blood Culture, Received Pending 07/27/17 Anaerobic Blood Culture, Received Pending 07/27/17 Aerobic Blood Culture, Received Pending 07/27/17 Anaerobic Blood Culture, Received Pending 07/28/17 Gram Stain - Final, Resulted 07/28/17 Sputum Culture, Resulted Pending Imaging Last 72 hours Impressions Liver Ultrasound 07/27/17 0000 Signed Impressions: Service Date/Time: Thursday, July 27, 2017 12:06 - CONCLUSION: Cirrhosis of liver with surrounding ascites and possible occlusion of the portal vein. Gallstones. Rafael Breaux MD Chest CT 07/27/17 0000 Signed Impressions: Service Date/Time: Thursday, July 27, 2017 11:09 - CONCLUSION: 1. There is a left-sided SVC present with a central line identified within the lumen and terminating within the region of the coronary sinus. 2. Moderate ascites with cirrhotic changes of the liver and multiple varices consistent with portal hypertension. 3. Probably positioned endotracheal tube and orogastric tube. 4. Moderate to severe centrilobular emphysematous change. Monika Sims MD Chest X-Ray 07/26/17 1404 Signed Impressions: Service Date/Time: Wednesday, July 26, 2017 14:49 - CONCLUSION: 1. ETT approximately 1.5 cm above the melinda. NGT in the stomach. 2. No acute radiographic cardiopulmonary abnormality. Jim Mckenna MD Head CT 07/26/17 0000 Signed Impressions: Service Date/Time: Thursday, July 27, 2017 11:06 - CONCLUSION: 1. No acute intracranial abnormality. 2. There is a small amount of fluid in the posterior aspect of both maxillary sinuses. Jayden Olvera MD Chest X-Ray 07/26/17 0000 Signed Impressions: Service Date/Time: Wednesday, July 26, 2017 20:48 - CONCLUSION: 1. The left central line is not in the superior vena cava, but rather it courses inferiorly into the left mediastinum. 2. No evidence of pneumothorax. Wade Combs MD Tubes & Lines: Hernandez (Wanda Ibarra) Physical Exam General Appearance: Comfortable Appearance Remarks intubated, unresponsive (Wanda Ibarra) Throat Throat Exam: Oral Mucosa [place] & Moist Throat Remarks ETT, OG tube (Wanda Ibarra) Gastrointestinal/Abdomen GI Exam: Soft, Non-Tender (Wanda Ibarra) Musculoskeletal MS Exam: Joints Intact, Normal Tone, Unable to Ambulate (aWnda Ibarra) Integumentary Skin Exam: Warm, Dry (Wanda Ibarra) Extremeties Extremities Exam: No Edema, Pedal Pulses Palpable (Wanda Ibarra) Neurologic Neuro Exam: Unresponsive (Wanda Ibarra) VTE Prophylaxis Device: SCDs (Wanda Ibarra) Assessment/Plan Discussed Condition Comment Nurse Electrolyte Assessment: Hyperkalemia Problem List: (1) Hyperkalemia ICD Codes: E87.5 - Hyperkalemia Status: Acute Plan: Multifactorial, Improved From possible cardiac arrest and likely also medication related his renal function is normal At this time continue current plan Reduce IVF to 50 cc/hr (2) Symptomatic bradycardia ICD Codes: R00.1 - Bradycardia, unspecified Status: Acute Plan: He is unresponsive on ventilator cardiology following Plan We will sign off at this time, please call us if needed (Wanda Ibarra) Plan patient was seen and examined. Agree with above assessment and plan. (Guanaco Lange MD) Wanda Ibarra Jul 28, 2017 11:05 Guanaco Lange MD Jul 28, 2017 21:23
[2017-07-28] MEDS: DOPamine INJ PREMIX 500 ML IV PRN (13:58)
--- NOTE | 2017-07-28 23:59 | MG ---
cc: JAZMIN IRWIN M.D. Sex: M DATE OF STUDY: 07/27/2017 [id number] TECHNIQUE: This is a 17 channel EEG. DESCRIPTION: The background rhythm reveals generalized slowing in the delta and theta frequencies at 3-4 Hz, amplitude is about 5-10 microvolts. There are no lateralizing features. There are no epileptiform discharges present. Photic stimulation was done with no significant driving response. INTERPRETATION Abnormal study consistent with a significant encephalopathy. MD BRISEIDA Abdullahi/DAVID /9:09 PM /11:56 PM
[2017-07-29] VITALS (36 sets, daily range): BP systolic 80–125; BP diastolic 51–83; PULSE 68–91; RESP 16–17; TEMP 97.6–98.2; O2SAT 98–100
[2017-07-29] MEDS: HYDROCORTISONE SOD SUCCINATE 100 MG VIAL IV PUSH SCH ×4 (02:13→20:28)
[2017-07-29] MEDS: PIPERACIL-TAZO 4.5 GM PREMIX 100 ML IV SCH ×3 (02:13→14:32)
[2017-07-29] MEDS: RESP: ALBUTEROL 2.5 MG/IPRATROPIUM 0.5 MG NEB (SCH) INH ×4 (03:16→20:30)
[2017-07-29] MEDS: CHLORHEXIDINE GLUCONATE 2 % 1 PACK (2 CLOTHS) TOP SCH (04:00)
[2017-07-29] MEDS: INSULIN NovoLIN REGULAR SUPPLEMENTAL SCALE SQ SCH ×6 (04:00→20:00)
[2017-07-29 05:04] LABS: AUTOMATED NEUTROPHIL # 8.2 TH/MM3 (1.8-7.7); BASOPHIL % 0.1 % (0.0-2.0); HEMATOCRIT 30.7 % (39.0-51.0); LYMPHOCYTE # 0.7 TH/MM3 (1.0-4.8); MEAN CELL VOLUME 98.4 FL (80.0-100.0); MONO % 9.3 % (0.0-8.0); NEUT % 83.6 % (16.0-70.0); PLATELET COUNT 42 TH/MM3 (150-450); RED BLOOD COUNT 3.12 MIL/MM3 (4.50-5.90); RED CELL DISTRIBUTION WIDTH 15.7 % (11.6-17.2); WHITE BLOOD COUNT 9.8 TH/MM3 (4.0-11.0)
[2017-07-29 05:18] LABS: HEMO FLAGS AUTO DIFF; MEAN CORPUSCULAR HGB CONC 36.5 % (32.0-36.0)
[2017-07-29 05:29] LABS: ANION GAP 9 MEQ/L (5-15); AST (GOT) 66 U/L (15-37); BICARBONATE 25.5 MEQ/L (21.0-32.0); BLOOD UREA NITROGEN 22 MG/DL (7-18); CHLORIDE 106 MEQ/L (98-107); GLOMERULAR FILTRATION RATE 96 ML/MIN (>89); MAGNESIUM 1.7 MG/DL (1.5-2.5); POTASSIUM 3.7 MEQ/L (3.5-5.1); SODIUM (NA) 140 MEQ/L (136-145)
[2017-07-29 05:32] LABS: ALKALINE PHOSPHATASE 52 U/L (45-117); ALT (GPT) 53 U/L (12-78); TOTAL BILIRUBIN ADULT 2.9 MG/DL (0.2-1.0)
[2017-07-29] MEDS: DEXT 5%-NACL 0.9% 1000 ML INJ 1,000 ML IV SCH (05:33)
[2017-07-29 07:13] LABS: BANDS 15 % (0-6); NEUTROPHIL # MANUAL DIFF 9.3 TH/MM3 (1.8-7.7); POLYS (SEG NEUTROPHILS) 80 % (16-70); WBC DIFF SAMPLE 100
[2017-07-29 07:14] LABS: DOHLE BODIES PRESENT (NONE SEEN)
[2017-07-29 07:15] LABS: PLATELET ESTIMATE SMEAR LOW (NORMAL); PLATELET MORPHOLOGY NORMAL (NORMAL); SCAN/DIFF FINAL DIFF MANUAL
[2017-07-29] MEDS ORDERED: BUMETANIDE INJ 1 MG/4 ML VIAL IV PUSH ONE (07:45)
--- NOTE | 2017-07-29 07:48 | HHI.CCPN ---
Subjective Remarks/Hospital Course The patient is a 66-year-old male with past medical history of COPD, hepatitis C , atrial fibrillation who presented to [facility] ED after he was found down in his cell at a local [facility]. CPR was initiated prior to his apparent DNR being discovered. EMS arrived and they were able to get him back with transcutaneous pacing, however, during that time the patient wished to have everything done. He became unresponsive and was intubated in the field and he has been a transcutaneously paced. On arrival to the emergency room, the patient was bradycardic and hypotensive. He was seen by Dr. Paz and started on dopamine drip currently at 10 mcg. The patient was given Digibind empirically. however, his Digoxin level came back subtherapeutic at 0.3. His laboratory data significant for hyperkalemia with potassium level 6.7, creatinine of 1.21. The patient scheduled to receive 10 units IV insulin D50, calcium, sodium bicarb and kayexalate for treatment of his hyperkalemia. EKG showed junctional rhythm. Intraventricular conduction delay with a rate of 33 beats per minute. The chest x-ray in the ER showed ET tube approximately 1.5 cm above the melinda. No acute radiographic cardiopulmonary abnormalities identified. His troponin level was less than 0.02 with total CK of 80. The rest of the history is limited as the patient is intubated. 07/27: Patient remains sedated and intubated. On Dopamine 12 mics, Levophed 11 mics. K 5.5 this morning. Afebrile, transcutaneously paced. 07/28 No events overnight. Off sedation Levophed down 2 mics, Dopamine [address] brain yesterday no acute findings. 07/29 Patient remains intubated on no sedation. Off Levophed, dopamine down 3 mics. Afebrile. Objective Vital Signs Date Time Temp Pulse Resp B/P (MAP) Pulse Ox O2 Delivery O2 Flow Rate FiO2 07/29/17 06:55 73 110/60 07/29/17 04:20 100 40 07/29/17 04:00 97.7 17 07/26/17 17:00 Ventilator Intake and Output 07/29/17 07/29/17 07/30/17 08:00 16:00 00:00 Intake Total 1799 ml Output Total 600 ml Balance 1199 ml Result Diagram: 07/29/17 0438 07/29/17 0438 Other Results Laboratory Tests Test 07/28/17 11:13 07/29/17 04:38 Phosphorus Level 2.4 MG/DL 2.5 MG/DL White Blood Count 9.8 TH/MM3 Red Blood Count 3.12 MIL/MM3 Hemoglobin 11.2 GM/DL Hematocrit 30.7 % Mean Corpuscular Volume 98.4 FL Mean Corpuscular Hemoglobin 36.0 PG Mean Corpuscular Hemoglobin Concent 36.5 % Red Cell Distribution Width 15.7 % Platelet Count 42 TH/MM3 Mean Platelet Volume 7.7 FL Neutrophils (%) (Auto) 83.6 % Lymphocytes (%) (Auto) 7.0 % Monocytes (%) (Auto) 9.3 % Eosinophils (%) (Auto) 0.0 % Basophils (%) (Auto) 0.1 % Neutrophils # (Auto) 8.2 TH/MM3 Lymphocytes # (Auto) 0.7 TH/MM3 Monocytes # (Auto) 0.9 TH/MM3 Eosinophils # (Auto) 0.0 TH/MM3 Basophils # (Auto) 0.0 TH/MM3 CBC Comment AUTO DIFF Differential Total Cells Counted 100 Neutrophils % (Manual) 80 % Band Neutrophils % 15 % Lymphocytes % 1 % Monocytes % 4 % Neutrophils # (Manual) 9.3 TH/MM3 Differential Comment FINAL DIFF MANUAL Toxic Granulation Dohle Bodies PRESENT Platelet Estimate LOW Platelet Morphology Comment NORMAL Blood Urea Nitrogen 22 MG/DL Creatinine 0.81 MG/DL Random Glucose 145 MG/DL Total Protein 5.6 GM/DL Albumin 1.4 GM/DL Calcium Level 8.0 MG/DL Magnesium Level 1.7 MG/DL Alkaline Phosphatase 52 U/L Aspartate Amino Transf (AST/SGOT) 66 U/L Alanine Aminotransferase (ALT/SGPT) 53 U/L Total Bilirubin 2.9 MG/DL Sodium Level 140 MEQ/L Potassium Level 3.7 MEQ/L Chloride Level 106 MEQ/L Carbon Dioxide Level 25.5 MEQ/L Anion Gap 9 MEQ/L Estimat Glomerular Filtration Rate 96 ML/MIN Imaging Last Impressions Abdomen Ultrasound 07/28/17 0000 Signed Impressions: Service Date/Time: Friday, July 28, 2017 08:20 - CONCLUSION: 1. Trace ascites Willian Parks MD Liver Ultrasound 07/27/17 0000 Signed Impressions: Service Date/Time: Thursday, July 27, 2017 12:06 - CONCLUSION: Cirrhosis of liver with surrounding ascites and possible occlusion of the portal vein. Gallstones. Rafael Breaux MD Chest CT 07/27/17 0000 Signed Impressions: Service Date/Time: Thursday, July 27, 2017 11:09 - CONCLUSION: 1. There is a left-sided SVC present with a central line identified within the lumen and terminating within the region of the coronary sinus. 2. Moderate ascites with cirrhotic changes of the liver and multiple varices consistent with portal hypertension. 3. Probably positioned endotracheal tube and orogastric tube. 4. Moderate to severe centrilobular emphysematous change. Monika Sims MD Chest X-Ray 07/26/17 1404 Signed Impressions: Service Date/Time: Wednesday, July 26, 2017 14:49 - CONCLUSION: 1. ETT approximately 1.5 cm above the melinda. NGT in the stomach. 2. No acute radiographic cardiopulmonary abnormality. Jim Mckenna MD Head CT 07/26/17 0000 Signed Impressions: Service Date/Time: Thursday, July 27, 2017 11:06 - CONCLUSION: 1. No acute intracranial abnormality. 2. There is a small amount of fluid in the posterior aspect of both maxillary sinuses. Jayden Olvera MD Objective Remarks GENERAL: Patient is 66 yo critically ill intubated SKIN: Warm and dry. HEAD: Normocephalic. EYES: No scleral icterus. No injection or drainage. NECK: Supple, trachea midline. No JVD or lymphadenopathy.Intubated. CARDIOVASCULAR: Regular rate and rhythm without murmurs, gallops, or rubs. RESPIRATORY: Breath sounds equal bilaterally. No accessory muscle use. GASTROINTESTINAL: Abdomen soft, non-tender, nondistended. MUSCULOSKELETAL: No cyanosis, or edema. Neuro: Intubated A/P Assessment and Plan 1. Vent dependent respiratory failure. 2. Sinus asad arrest. 3. s/p Hyperkalemia. 4. Hyponatremia. 5. History of atrial fibrillation. 6. COPD. 7. Hepatitis C. 8. Thrombocytopenia. 9 Elevated AST 10 Thrombocytopenia Plan Neuro: Monitor neuro status closely. Off sedation. Neuro eval. 07/27: CT brain: No acute findings. 07/28: EEG : Encephalopathy UDS: + Benzos. Pulm: Continue with vent support and maintain sats above 92%. Bronchodilators, ICU vent bundle. CT chest: cirrhotic changes of the liver and multiple varices consistent with portal hypertension. Moderate to severe centrilobular emphysematous change. CV: Wean off Dopamine maintain HR> 60 and a MAP >65 mmHg. Off Levophed On stress dose steroids- HC 50mg IV Q6 s/p Digibind empirically in ED, Digoxin level: 0.3. Cards is following- Dr. Paz. Echo showed EF 40-45% : Monitor renal function, I/O's, electrolytes replacement as needed. Will need Mag replacement today Diurese with Bumex 1mg x1. d/c IVF GI: On Protonix 40mg daily, tube feeds- Glucerna 1.5 @ 45ml/hr Monitor LFT's, US liver: Cirrhosis of liver with trace ascites and possible occlusion of the portal vein. Gallstones. Check Hepatitis profile. ID: On Zosyn, add Zyvox, monitor for signs of infections ( Fever, WBC) ID eval. 07/27 Urine cx: E.coli ESBL, VRE 07/27 BC: NGTD, 07/28 sputum: GNR Heme: Monitor CBC Endo:On Medium SSI with accuchecks for glycemic control GI prophylaxis- Protonix 40mg daily DVT prophylaxis- SCD's, not on chemical AC prophylaxis due to thrombocytopenia Lines: Right Rad Art line, Left subclavian CVP placed 07/26 Patient is critically ill with resp failure , s/p sinus arrest likely 2nd hyperkalemia and likely now with anoxic brain injury CCT 30 mins Carlton Lopez MD Jul 29, 2017 07:48
[2017-07-29] MEDS: PANTOPRAZOLE SODIUM 40 MG VIAL IV PUSH SCH (08:34)
[2017-07-29] MEDS: DOCUSATE SODIUM 50 MG/SENNA 8.6 MG TAB PO SCH ×2 (08:35→20:28)
[2017-07-29] MEDS: LINEZOLID 600 MG PREMIX 300 ML IV SCH (14:33)
--- NOTE | 2017-07-29 14:50 | PD.CONS ---
History of Present Illness Service Neurology Consult Requested By [facility] Reason for Consult confusion Primary Care Physician Unknown History of Present Illness 66 y/o inmate from the local skilled nursing who was sent to us after being found down in his cell. Staff at the skilled nursing initiated CPR. They then found out that the patient had a DNR so CPR was stopped. However, the patient had spontaneous return of respirations. EMS was called. On their arrival, they found the patient to be bradycardic at a rate of 20 with a systolic blood pressure of 50. They initiated transcutaneous pacing. pt unable to give any hx. intubated. on fentanyl gtt. has been mata per rn. Records from the skilled nursing indicate that he has a history of atrial fibrillation, asthma/COPD, hepatitis C, pancytopenia and lower extremity edema. [facility] Social History Tobacco Use: No Allergies-Medications (Allergen,Severity, Reaction): Coded Allergies: No Known Allergies (Unverified , 07/26/17) Reported Meds & Prescriptions Reported Meds & Active Scripts Active Reported Duoneb (Ipratropium-Albuterol Neb) 0.5-2.5 Mg/3 Ml Neb 3 Ml NEB BID PRN Oxygen (O2) (Miscellaneous Medication) Inha Liter DAVID.CANULA PRN Oxygen Concentrator Portable Gaseous 2 L/min via Nasal Canula Continuous For 99 months Lasix (Furosemide) 20 Mg Tab 20 Mg PO DAILY Flomax (Tamsulosin HCl) 0.4 Mg Cap 0.4 Mg PO DAILY Alvesco Inh (Ciclesonide Inh) 80 Mcg/Act Aero 1 Puff INH BID Protonix (Pantoprazole Sodium) 40 Mg Tab 40 Mg PO DAILY Klor-Con 10 (Potassium Chloride) 10 Meq Tab 10 Meq PO DAILY Aldactone (Spironolactone) 50 Mg Tab 50 Mg PO BID Diltiazem ER 12 HR (Diltiazem HCl) 120 Mg Caper 120 Mg PO DAILY Lanoxin (Digoxin) 125 Mcg Tablet 125 Mcg PO DAILY Hold if pulse below 60 Aspirin Adult Low Strength (Aspirin) 81 Mg Tabdr 81 Mg PO DAILY Pepto-Bismol Liq (Bismuth Subsalicylate) 262 Mg/15 Ml Susp 30 Ml PO PRN Do not exceed 8 doses (240 mL or 16 tbsp) in 24 hours. [Ensure] 1 Can PO TID Propranolol (Propranolol HCl) 60 Mg Tab 60 Mg PO Q12HR Xopenex Hfa 15 GM Inh (Levalbuterol 15 GM Inh) 45 Mcg/Act Aer 2 Puff INH Q4-6H PRN Shake well before using. (1 puff = 45 mcg) Review of Systems ROS Limitations: Intubated Review of Systems All other ROS: Unable to obtain Past Family Social History Allergies: Coded Allergies: No Known Allergies (Unverified , 07/26/17) Active Ordered Medications Current Medications Medications (Trade) Dose Ordered Sig/Ned Route Start Time Stop Time Status Last Admin (Protonix Inj) 40 mg DAILY IV PUSH 07/26/17 16:00 07/29/17 08:34 (Duoneb Neb) 1 ampule Q6HR NEB INH 07/26/17 16:00 07/29/17 08:01 Miscellaneous Information 1 Q361D XX 07/26/17 15:45 (Chlorhexidine 2% Cloth) 3 pack Taper DAILY@04 TOP 07/27/17 04:00 07/23/18 03:59 07/29/17 04:00 (Chlorhexidine 2% Cloth) 3 pack UNSCH PRN TOP 07/26/17 15:45 (Yanet-Colace) 1 tab BID PO 07/26/17 21:00 07/29/17 08:35 (Milk Of Magnesia Liq) 30 ml Q12H PRN PO 07/26/17 15:45 (Senokot) 17.2 mg Q12H PRN PO 07/26/17 15:45 (Dulcolax Supp) 10 mg DAILY PRN RECTAL 07/26/17 15:45 (Lactulose Liq) 30 ml DAILY PRN PO 07/26/17 15:45 Dopamine HCl/ Dextrose 500 ml @ 26.25 mls/ hr TITRATE PRN IV 07/26/17 16:30 07/28/17 13:58 Norepinephrine Bitartrate 250 ml @ 7.5 mls/hr TITRATE PRN IV 07/26/17 17:15 07/28/17 04:12 (Brethine Inj) 1 mg UNSCH PRN SQ 07/26/17 17:15 Fentanyl Citrate 250 ml @ 5 mls/hr TITRATE PRN IV 07/26/17 17:15 (SoluCORTEF INJ) 50 mg Q6H IV PUSH 07/27/17 14:00 07/29/17 14:33 Piperacillin Sod/ Tazobactam Sod 100 ml @ 200 mls/hr Q6H IV 07/27/17 09:00 07/29/17 14:32 (D50w (Vial) Inj) 50 ml UNSCH PRN IV PUSH 07/27/17 09:00 (Glucagon Inj) 1 mg UNSCH PRN OTHER 07/27/17 09:00 (NovoLIN R SUPPLEMENTAL SCALE) 1 Q4HR SQ 07/27/17 09:00 07/29/17 00:00 Potassium Chloride 100 ml @ 50 mls/hr Q2H PRN IV 07/28/17 07:15 Potassium Chloride 100 ml @ 50 mls/hr Q2H PRN IV 07/28/17 07:15 (K-Lyte Cl Eff) 50 meq UNSCH PRN PO 07/28/17 07:15 Potassium Chloride 100 ml @ 25 mls/hr UNSCH PRN IV 07/28/17 07:15 Potassium Chloride 100 ml @ 50 mls/hr Q2H PRN IV 07/28/17 07:15 Magnesium Sulfate 4 gm/Sodium Chloride 100 ml @ 50 mls/hr UNSCH PRN IV 07/28/17 07:15 (Mag-Ox) 800 mg UNSCH PRN PO 07/28/17 07:15 Magnesium Sulfate 2 gm/Sodium Chloride 100 ml @ 50 mls/hr UNSCH PRN IV 07/28/17 07:15 (K-Phos) 2,000 mg Q4H PRN PO 07/28/17 07:15 Sodium Phosphate 30 mmol/Sodium Chloride 250 ml @ 42 mls/hr UNSCH PRN IV 07/28/17 07:15 07/28/17 13:59 (K-Phos) 2,000 mg UNSCH PRN PO/TUBE 07/28/17 07:15 Potassium Phosphate 30 mmol/ Sodium Chloride 260 ml @ 42 mls/hr UNSCH PRN IV 07/28/17 07:15 Linezolid 300 ml @ 300 mls/hr Q12H IV 07/29/17 14:00 07/29/17 14:33 Exam I&O / VS 07/29/17 07/29/17 07/30/17 15:00 23:00 07:00 Intake Total 617 ml Balance 617 ml Intake IV Total 281 ml Tube Feeding 246 ml Other 90 ml Vital Signs Date Time Temp Pulse Resp B/P (MAP) Pulse Ox O2 Delivery O2 Flow Rate FiO2 07/29/17 14:40 89 102/80 07/29/17 13:26 98 40 07/29/17 12:02 81 80/59 07/29/17 12:00 77 07/29/17 12:00 40 07/29/17 12:00 97.6 83 80/59 (66) 100 112/61 (78) 07/29/17 11:30 74 108/54 (72) 100 07/29/17 11:00 80 82/54 (63) 100 105/55 (72) 07/29/17 10:48 100 40 07/29/17 10:30 77 108/53 (71) 100 07/29/17 10:25 74 109/57 07/29/17 10:00 81 109/57 (74) 100 113/67 (82) 07/29/17 10:00 77 07/29/17 09:30 75 106/55 (72) 100 07/29/17 09:00 83 86/52 (63) 100 95/71 (79) 07/29/17 08:58 70 96/76 07/29/17 08:10 100 40 07/29/17 08:01 82 111/55 (73) 100 118/63 (81) 07/29/17 08:00 80 07/29/17 08:00 98.0 80 117/60 (79) 100 07/29/17 08:00 40 07/29/17 07:01 79 89/59 (69) 100 99/70 (80) 07/29/17 07:00 76 94/69 (77) 100 07/29/17 06:55 73 110/60 07/29/17 06:01 79 96/51 (66) 100 116/60 (78) 07/29/17 06:00 76 103/63 (76) 100 07/29/17 06:00 76 07/29/17 05:22 69 87/62 07/29/17 05:00 76 84/52 (63) 99 91/74 (80) 07/29/17 04:20 100 40 07/29/17 04:00 40 07/29/17 04:00 73 07/29/17 04:00 97.7 73 17 85/53 (64) 100 92/63 (73) 07/29/17 02:20 71 101/58 07/29/17 02:00 84 07/29/17 01:07 98 40 07/29/17 00:30 80 91/69 07/29/17 00:00 84 07/29/17 00:00 97.9 84 17 108/70 (83) 99 120/70 (87) 07/29/17 00:00 40 07/28/17 22:06 98 40 07/28/17 22:00 81 07/28/17 20:20 99 40 07/28/17 20:00 83 07/28/17 20:00 98.1 83 17 100/63 (75) 99 103/62 (76) 07/28/17 20:00 40 07/28/17 18:00 87 07/28/17 17:00 87 07/28/17 16:48 98 40 07/28/17 16:00 40 07/28/17 16:00 94 07/28/17 16:00 98.7 94 100/67 (78) 98 109/67 (81) 07/28/17 15:00 92 102/59 (73) 97 87/52 (64) 07/28/17 15:00 92 Exam Comments intubated, eyes partially open, not following, on fentanyl gtt, limited blink to threat, grimaces to tactile, ou 3mmsluggish, limited movement of ext, no clonus, planter flexor Review/Management Diagnosis/Plan: (1) Acute encephalopathy ICD Codes: G93.40 - Encephalopathy, unspecified Status: Acute Plan: 2/2 sepsis apparently has confusion at long term and question of underlying dementia per rn at bedside/ has underlying liver cirrhosis recs ct brain when feasible; apparently can't get mri 2/2 metal hardware in knee check nh3; optimize thyroid function medical/ID management will follow peripherally (2) Sepsis ICD Codes: A41.9 - Sepsis, unspecified organism Status: Acute Vishal Marte MD Jul 29, 2017 14:50
[2017-07-29] MEDS: fentaNYL DRIP 250 ML IV PRN (15:41)
--- NOTE | 2017-07-29 16:19 | PD.CONS ---
History of Present Illness Service Infectious disease Consult Requested By Dr Rika Lopez Reason for Consult Evaluate patient with urine culture that has ESBL positive organism and VRE Primary Care Physician Unknown Diagnoses: History of Present Illness Patient seen and examined. Records reviewed. Patient is a 66-year-old inmate brought into the hospital after he was found down in his cell. CPR was initially started, however he was found to be DNR, so it was stopped, but the patient had spontaneous return of his respirations. He was bradycardic and transcutaneous pacing was started and the patient brought into the hospital. While in route to the hospital, patient apparently stated that he wished to have everything done. He went into respiratory arrest , and intubated in the field. In the emergency room he was hypotensive, and bradycardic. Patient was seen by a tag clerk, and his hemodynamics and cardiac status stabilized. Patient currently is off pressors. He remains on the vent, and on sedation. His urinalysis showed some pyuria, and the culture is growing Escherichia coli ESBL positive and VRE. His blood cultures are negative so far. His initial chest x-ray did not show any infiltrates. Patient also had elevated LFTs, and there is history of liver cirrhosis. He is afebrile. His WBC was elevated, and it's down to normal. Infectious disease consultation has been requested to make antibiotic recommendation. Review of Systems ROS Limitations: Clinical Condition, Intubated Past Family Social History Allergies: Coded Allergies: No Known Allergies (Unverified , 07/26/17) Past Medical History Atrial fibrillation. Positive PPD with treatment. Hepatitis C. COPD. Lower extremity edema. Pancytopenia. Liver cirrhosis Past Surgical History None known Reported Medications I attest that I obtained, updated or reviewed the medications from custodial and current medications. Reported Meds & Active Scripts Active Reported Duoneb (Ipratropium-Albuterol Neb) 0.5-2.5 Mg/3 Ml Neb 3 Ml NEB BID PRN Oxygen (O2) (Miscellaneous Medication) Inha Liter DAVID.CANULA PRN Oxygen Concentrator Portable Gaseous 2 L/min via Nasal Canula Continuous For 99 months Lasix (Furosemide) 20 Mg Tab 20 Mg PO DAILY Flomax (Tamsulosin HCl) 0.4 Mg Cap 0.4 Mg PO DAILY Alvesco Inh (Ciclesonide Inh) 80 Mcg/Act Aero 1 Puff INH BID Protonix (Pantoprazole Sodium) 40 Mg Tab 40 Mg PO DAILY Klor-Con 10 (Potassium Chloride) 10 Meq Tab 10 Meq PO DAILY Aldactone (Spironolactone) 50 Mg Tab 50 Mg PO BID Diltiazem ER 12 HR (Diltiazem HCl) 120 Mg Caper 120 Mg PO DAILY Lanoxin (Digoxin) 125 Mcg Tablet 125 Mcg PO DAILY Hold if pulse below 60 Aspirin Adult Low Strength (Aspirin) 81 Mg Tabdr 81 Mg PO DAILY Pepto-Bismol Liq (Bismuth Subsalicylate) 262 Mg/15 Ml Susp 30 Ml PO PRN Do not exceed 8 doses (240 mL or 16 tbsp) in 24 hours. [Ensure] 1 Can PO TID Propranolol (Propranolol HCl) 60 Mg Tab 60 Mg PO Q12HR Xopenex Hfa 15 GM Inh (Levalbuterol 15 GM Inh) 45 Mcg/Act Aer 2 Puff INH Q4-6H PRN Shake well before using. (1 puff = 45 mcg) Active Ordered Medications Albuterol prn Dulcolax prn Fentanyl Solucortef Insulin Lactulose Zyvox MOM Magnesium Protonix Zosyn Potassium Senokot prn Family History Not known Social History Has been in custodial a long time NO smoking No ETOH No drugs Physical Exam Vital Signs Vital Signs Date Time Temp Pulse Resp B/P (MAP) Pulse Ox O2 Delivery O2 Flow Rate FiO2 07/29/17 15:46 99 40 07/29/17 14:40 89 102/80 07/29/17 14:00 74 07/29/17 13:26 98 40 07/29/17 12:02 81 80/59 07/29/17 12:00 77 07/29/17 12:00 40 07/29/17 12:00 97.6 83 80/59 (66) 100 112/61 (78) 07/29/17 11:30 74 108/54 (72) 100 07/29/17 11:00 80 82/54 (63) 100 105/55 (72) 07/29/17 10:48 100 40 07/29/17 10:30 77 108/53 (71) 100 07/29/17 10:25 74 109/57 07/29/17 10:00 81 109/57 (74) 100 113/67 (82) 07/29/17 10:00 77 10/3/17 09:30 75 106/55 (72) 100 07/29/17 09:00 83 86/52 (63) 100 95/71 (79) 07/29/17 08:58 70 96/76 07/29/17 08:10 100 40 07/29/17 08:01 82 111/55 (73) 100 118/63 (81) 07/29/17 08:00 80 07/29/17 08:00 98.0 80 117/60 (79) 100 07/29/17 08:00 40 07/29/17 07:01 79 89/59 (69) 100 99/70 (80) 07/29/17 07:00 76 94/69 (77) 100 07/29/17 06:55 73 110/60 07/29/17 06:01 79 96/51 (66) 100 116/60 (78) 07/29/17 06:00 76 103/63 (76) 100 07/29/17 06:00 76 07/29/17 05:22 69 87/62 07/29/17 05:00 76 84/52 (63) 99 91/74 (80) 07/29/17 04:20 100 40 07/29/17 04:00 40 07/29/17 04:00 73 07/29/17 04:00 97.7 73 17 85/53 (64) 100 92/63 (73) 07/29/17 02:20 71 101/58 07/29/17 02:00 84 07/29/17 01:07 98 40 07/29/17 00:30 80 91/69 07/29/17 00:00 84 07/29/17 00:00 97.9 84 17 108/70 (83) 99 120/70 (87) 07/29/17 00:00 40 07/28/17 22:06 98 40 07/28/17 22:00 81 07/28/17 20:20 99 40 07/28/17 20:00 83 07/28/17 20:00 98.1 83 17 100/63 (75) 99 103/62 (76) 07/28/17 20:00 40 07/28/17 18:00 87 07/28/17 17:00 87 07/28/17 16:48 98 40 Physical Exam GENERAL: Patient is a well-nourished, well-developed male, on the vent, sedated, not in respiratory distress. SKIN: Cool and dry. Has purpuric lesions on his upper chest. HEAD: Atraumatic. Normocephalic. No temporal wasting, or tenderness. EYES: [place] conjunctiva. No petechia or hemorrhage. Pupils equal, round pinpoint. Mild scleral icterus. No injection or drainage. EARS, NOSE AND THROAT: Nose without bleeding or purulent nasal discharge. Endotracheal tube in mouth NECK: Trachea midline. Supple and not tender, no meningeal signs CARDIOVASCULAR: Regular rate and rhythm. Soft heart sounds. No murmurs, rubs or gallops heard RESPIRATORY: Clear to auscultation. Breath sounds equal bilaterally. No rales , wheezing or rhonchi. Decreased BS at bases. ABDOMEN: Soft, mildly distended, no reaction to palpation. Bowel sounds present and hypoactive. EXTREMITIES: No clubbing, cyanosis, or edema. No joint effusion, has good ROM. Cool, no mottling NEUROLOGICAL: Sedated. No Babinski, no clonus PSYCHIATRIC: Unable to assess LINE: No evidence of infection : Hernandez in place, urine looks clear Laboratory Laboratory Tests Test 07/29/17 04:38 07/29/17 07:40 White Blood Count 9.8 Red Blood Count 3.12 Hemoglobin 11.2 Hematocrit 30.7 Mean Corpuscular Volume 98.4 Mean Corpuscular Hemoglobin 36.0 Mean Corpuscular Hemoglobin Concent 36.5 Red Cell Distribution Width 15.7 Platelet Count 42 Mean Platelet Volume 7.7 Neutrophils (%) (Auto) 83.6 Lymphocytes (%) (Auto) 7.0 Monocytes (%) (Auto) 9.3 Eosinophils (%) (Auto) 0.0 Basophils (%) (Auto) 0.1 Neutrophils # (Auto) 8.2 Lymphocytes # (Auto) 0.7 Monocytes # (Auto) 0.9 Eosinophils # (Auto) 0.0 Basophils # (Auto) 0.0 CBC Comment AUTO DIFF Differential Total Cells Counted 100 Neutrophils % (Manual) 80 Band Neutrophils % 15 Lymphocytes % 1 Monocytes % 4 Neutrophils # (Manual) 9.3 Differential Comment FINAL DIFF MANUAL Toxic Granulation Dohle Bodies PRESENT Platelet Estimate LOW Platelet Morphology Comment NORMAL Blood Urea Nitrogen 22 Creatinine 0.81 Random Glucose 145 Total Protein 5.6 Albumin 1.4 Calcium Level 8.0 Phosphorus Level 2.5 Magnesium Level 1.7 Alkaline Phosphatase 52 Aspartate Amino Transf (AST/SGOT) 66 Alanine Aminotransferase (ALT/SGPT) 53 Total Bilirubin 2.9 Sodium Level 140 Potassium Level 3.7 Chloride Level 106 Carbon Dioxide Level 25.5 Anion Gap 9 Estimat Glomerular Filtration Rate 96 Date/Time Source Procedure Growth Status 07/27/17 12:18 Blood Peripheral Aerobic Blood Culture - Preliminary NO GROWTH IN 2 DAYS Resulted 07/27/17 12:18 Blood Peripheral Anaerobic Blood Culture - Preliminary NO GROWTH IN 2 DAYS Resulted 07/28/17 04:00 Sputum Endotracheal Gram Stain - Final Resulted 07/28/17 04:00 Sputum Culture - Preliminary Gram Negative Noel Resulted 07/27/17 00:15 Urine Catheterized Urine Urine Culture - Final Escherichia Coli Esbl Positive Enterococcus Faecalis Vre Complete Result Diagram: 07/29/17 0438 07/29/17 0438 Imaging RADIOLOGY STUDIES/FILMS REVIEWED Abdomen Ultrasound 07/28/17 0000 Signed Impressions: Service Date/Time: Friday, July 28, 2017 08:20 - CONCLUSION: 1. Trace ascites Willian Parks MD Liver Ultrasound 07/27/17 0000 Signed Impressions: Service Date/Time: Thursday, July 27, 2017 12:06 - CONCLUSION: Cirrhosis of liver with surrounding ascites and possible occlusion of the portal vein. Gallstones. Rafael Breaux MD Chest CT 07/27/17 0000 Signed Impressions: Service Date/Time: Thursday, July 27, 2017 11:09 - CONCLUSION: 1. There is a left-sided SVC present with a central line identified within the lumen and terminating within the region of the coronary sinus. 2. Moderate ascites with cirrhotic changes of the liver and multiple varices consistent with portal hypertension. 3. Probably positioned endotracheal tube and orogastric tube. 4. Moderate to severe centrilobular emphysematous change. Monika Sims MD Chest X-Ray 07/26/17 1404 Signed Impressions: Service Date/Time: Wednesday, July 26, 2017 14:49 - CONCLUSION: 1. ETT approximately 1.5 cm above the melinda. NGT in the stomach. 2. No acute radiographic cardiopulmonary abnormality. Jim Mckenna MD Head CT 07/26/17 0000 Signed Impressions: Service Date/Time: Thursday, July 27, 2017 11:06 - CONCLUSION: 1. No acute intracranial abnormality. 2. There is a small amount of fluid in the posterior aspect of both maxillary sinuses. Jayden Olvera MD Assessment and Plan Assessment and Plan IMPRESSION UTI, C/S with E coli ESBL+ and VRE S/P sinus asad arrest Respiratory failure COPD findings seen on CT, has GNR in sputum C/S - ?HCAP - G/S not impressive for presence of WBC Liver cirrhosis, portal vein thrombosis Known Hep C Hx (+) PPD, per record treated - no evidence of TB on CT RECOMMENDATION Repeat UA and C/S Change Zosyn to Merem Continue Zyvox - follow CBC Follow C/S Monitor progress I will follow along with you Thank you for this consultation Discussed Condition With D/W Monse Deras MD Jul 29, 2017 16:19
[2017-07-29] MEDS ORDERED: ASP: Documented ESBL, MDR A baumannii or P. aeruginosa PRN (16:45)
[2017-07-29] MEDS ORDERED: MISCELLANEOUS PHARMACY INFORMATION XX PRN (16:45)
[2017-07-29] MEDS: MEROPENEM INJ 1,000 MG in SODIUM CHLORIDE 0.9% INJ 100 ML IV SCH (17:13)
[2017-07-30] VITALS (28 sets, daily range): BP systolic 100–124; BP diastolic 57–71; PULSE 57–90; RESP 16; TEMP 97.8–98.3; O2SAT 97–100
[2017-07-30] MEDS: MEROPENEM INJ 1,000 MG in SODIUM CHLORIDE 0.9% INJ 100 ML IV SCH ×3 (00:52→16:11)
[2017-07-30] MEDS: HYDROCORTISONE SOD SUCCINATE 100 MG VIAL IV PUSH SCH ×2 (00:52→14:14)
[2017-07-30] MEDS: LINEZOLID 600 MG PREMIX 300 ML IV SCH ×2 (00:52→14:15)
[2017-07-30] MEDS: RESP: ALBUTEROL 2.5 MG/IPRATROPIUM 0.5 MG NEB (SCH) INH ×3 (03:57→15:40)
[2017-07-30] MEDS: CHLORHEXIDINE GLUCONATE 2 % 1 PACK (2 CLOTHS) TOP SCH (04:00)
[2017-07-30] MEDS: INSULIN NovoLIN REGULAR SUPPLEMENTAL SCALE SQ SCH ×6 (04:00→20:00)
[2017-07-30 05:43] LABS: BICARBONATE 30.6 MEQ/L (21.0-32.0); MAGNESIUM 1.9 MG/DL (1.5-2.5); POTASSIUM 4.1 MEQ/L (3.5-5.1)
[2017-07-30 05:48] LABS: AUTOMATED NEUTROPHIL # 6.7 TH/MM3 (1.8-7.7); BASOPHIL % 0.1 % (0.0-2.0); HEMATOCRIT 30.8 % (39.0-51.0); LYMPH % 6.2 % (9.0-44.0); LYMPHOCYTE # 0.5 TH/MM3 (1.0-4.8); MEAN CELL VOLUME 100.8 FL (80.0-100.0); MEAN CORPUSCULAR HEMOGLOBIN 36.4 PG (27.0-34.0); NEUT % 84.7 % (16.0-70.0); PLATELET COUNT 50 TH/MM3 (150-450); RED BLOOD COUNT 3.06 MIL/MM3 (4.50-5.90); RED CELL DISTRIBUTION WIDTH 15.9 % (11.6-17.2); WHITE BLOOD COUNT 7.9 TH/MM3 (4.0-11.0)
[2017-07-30 05:59] LABS: MEAN CORPUSCULAR HGB CONC 36.1 % (32.0-36.0)
[2017-07-30 06:00] LABS: HEMO FLAGS AUTO DIFF
--- NOTE | 2017-07-30 07:36 | HHI.CCPN ---
Subjective Remarks/Hospital Course The patient is a 66-year-old male with past medical history of COPD, hepatitis C , atrial fibrillation who presented to [facility] ED after he was found down in his cell at a local senior care. CPR was initiated prior to his apparent DNR being discovered. EMS arrived and they were able to get him back with transcutaneous pacing, however, during that time the patient wished to have everything done. He became unresponsive and was intubated in the field and he has been a transcutaneously paced. On arrival to the emergency room, the patient was bradycardic and hypotensive. He was seen by Dr. Paz and started on dopamine drip currently at 10 mcg. The patient was given Digibind empirically. however, his Digoxin level came back subtherapeutic at 0.3. His laboratory data significant for hyperkalemia with potassium level 6.7, creatinine of 1.21. The patient scheduled to receive 10 units IV insulin D50, calcium, sodium bicarb and kayexalate for treatment of his hyperkalemia. EKG showed junctional rhythm. Intraventricular conduction delay with a rate of 33 beats per minute. The chest x-ray in the ER showed ET tube approximately 1.5 cm above the melinda. No acute radiographic cardiopulmonary abnormalities identified. His troponin level was less than 0.02 with total CK of 80. The rest of the history is limited as the patient is intubated. 07/27: Patient remains sedated and intubated. On Dopamine 12 mics, Levophed 11 mics. K 5.5 this morning. Afebrile, transcutaneously paced. 07/28 No events overnight. Off sedation Levophed down 2 mics, Dopamine [address] brain yesterday no acute findings. 07/29 Patient remains intubated on no sedation. Off Levophed, dopamine down 3 mics. Afebrile. 07/30 No events overnight. Patient is off all pressors sedated with Fentanyl and intubated. Afebrile. Objective Vital Signs Date Time Temp Pulse Resp B/P (MAP) Pulse Ox O2 Delivery O2 Flow Rate FiO2 07/30/17 06:00 79 07/30/17 04:30 100 40 07/30/17 04:00 98.3 105/58 (74) 07/29/17 20:00 16 07/26/17 17:00 Ventilator Intake and Output 07/30/17 07/30/17 07/31/17 08:00 16:00 00:00 Intake Total 1103.4 ml Output Total 350 ml Balance 753.4 ml Result Diagram: 07/30/17 0430 07/30/17 0430 Other Results Laboratory Tests Test 07/29/17 07:40 07/29/17 21:47 07/30/17 04:30 Ammonia 74 MCMOL/L White Blood Count 7.9 TH/MM3 Red Blood Count 3.06 MIL/MM3 Hemoglobin 11.1 GM/DL Hematocrit 30.8 % Mean Corpuscular Volume 100.8 FL Mean Corpuscular Hemoglobin 36.4 PG Mean Corpuscular Hemoglobin Concent 36.1 % Red Cell Distribution Width 15.9 % Platelet Count 50 TH/MM3 Mean Platelet Volume 8.3 FL Neutrophils (%) (Auto) 84.7 % Lymphocytes (%) (Auto) 6.2 % Monocytes (%) (Auto) 9.0 % Eosinophils (%) (Auto) 0.0 % Basophils (%) (Auto) 0.1 % Neutrophils # (Auto) 6.7 TH/MM3 Lymphocytes # (Auto) 0.5 TH/MM3 Monocytes # (Auto) 0.7 TH/MM3 Eosinophils # (Auto) 0.0 TH/MM3 Basophils # (Auto) 0.0 TH/MM3 CBC Comment AUTO DIFF Blood Urea Nitrogen 34 MG/DL Creatinine 0.89 MG/DL Random Glucose 150 MG/DL Calcium Level 8.0 MG/DL Phosphorus Level 2.8 MG/DL Magnesium Level 1.9 MG/DL Sodium Level 140 MEQ/L Potassium Level 4.1 MEQ/L Chloride Level 103 MEQ/L Carbon Dioxide Level 30.6 MEQ/L Anion Gap 6 MEQ/L Estimat Glomerular Filtration Rate 86 ML/MIN Imaging Last Impressions Abdomen Ultrasound 07/28/17 0000 Signed Impressions: Service Date/Time: Friday, July 28, 2017 08:20 - CONCLUSION: 1. Trace ascites Willian Parks MD Liver Ultrasound 07/27/17 0000 Signed Impressions: Service Date/Time: Thursday, July 27, 2017 12:06 - CONCLUSION: Cirrhosis of liver with surrounding ascites and possible occlusion of the portal vein. Gallstones. Rafael Breaux MD Chest CT 07/27/17 0000 Signed Impressions: Service Date/Time: Thursday, July 27, 2017 11:09 - CONCLUSION: 1. There is a left-sided SVC present with a central line identified within the lumen and terminating within the region of the coronary sinus. 2. Moderate ascites with cirrhotic changes of the liver and multiple varices consistent with portal hypertension. 3. Probably positioned endotracheal tube and orogastric tube. 4. Moderate to severe centrilobular emphysematous change. Monika Sims MD Chest X-Ray 07/26/17 1404 Signed Impressions: Service Date/Time: Wednesday, July 26, 2017 14:49 - CONCLUSION: 1. ETT approximately 1.5 cm above the melinda. NGT in the stomach. 2. No acute radiographic cardiopulmonary abnormality. Jim Mckenna MD Head CT 07/26/17 0000 Signed Impressions: Service Date/Time: Thursday, July 27, 2017 11:06 - CONCLUSION: 1. No acute intracranial abnormality. 2. There is a small amount of fluid in the posterior aspect of both maxillary sinuses. Jayden Olvera MD Objective Remarks GENERAL: Patient is 66 yo critically ill intubated SKIN: Warm and dry. HEAD: Normocephalic. EYES: No scleral icterus. No injection or drainage. NECK: Supple, trachea midline. No JVD or lymphadenopathy.Intubated. CARDIOVASCULAR: Regular rate and rhythm without murmurs, gallops, or rubs. RESPIRATORY: Breath sounds equal bilaterally. No accessory muscle use. GASTROINTESTINAL: Abdomen soft, non-tender, nondistended. MUSCULOSKELETAL: No cyanosis, or edema. Neuro: Intubated A/P Assessment and Plan 1. Vent dependent respiratory failure. 2. Sinus asad arrest. 3. s/p Hyperkalemia. 4. Hyponatremia. 5. History of atrial fibrillation. 6. COPD. 7. Hepatitis C. 8. Thrombocytopenia. 9 Elevated AST 10 Thrombocytopenia Plan Neuro: On Fenatl infusion for sedation. Daily sedation vacation. Monitor neuro status . Neuro is following 07/27: CT brain: No acute findings. 07/28: EEG : Encephalopathy UDS: + Benzos. Place on Lactulose and Rifaximin. Monitor Ammonia level. Pulm: Continue with vent support and maintain sats >92%. Bronchodilators, ICU vent bundle. CT chest: cirrhotic changes of the liver and multiple varices consistent with portal hypertension. Moderate to severe centrilobular emphysematous change. CV: Off all pressors monitor HR and BP maintain MAP >65 mmHg. Decrease HC 50mg IV Q12 s/p Digibind empirically in ED, Digoxin level: 0.3. Cards is following- Dr. Paz. Echo showed EF 40-45% : Monitor renal function, I/O's, electrolytes replacement as needed. GI: On Protonix 40mg daily, tube feeds- Glucerna 1.5 @ 45ml/hr Monitor LFT's, US liver: Cirrhosis of liver with trace ascites and possible occlusion of the portal vein. Gallstones. Hepatitis profile pending ID: On Merrem and Zyvox, monitor for signs of infections ( Fever, WBC) ID is [email or web address] 07/27 Urine cx: E.coli ESBL, VRE 07/27 BC: NGTD, 07/28 sputum: GNR Heme: Monitor CBC Endo:On Medium SSI with accuchecks for glycemic control Check TSH, FT4, FT3 GI prophylaxis- Protonix 40mg daily DVT prophylaxis- SCD's, not on chemical AC prophylaxis due to thrombocytopenia Lines: Right Rad Art line, Left subclavian CVP placed 07/26 CCT 30 mins Carlton Lopez MD Jul 30, 2017 07:36
--- NOTE | 2017-07-30 08:37 | HHI.PR ---
Review/Management Diagnosis/Plan: (1) Acute encephalopathy ICD Codes: G93.40 - Encephalopathy, unspecified Status: Acute Plan: 2/2 sepsis/hyperammonemia hypotension/ ? hypoxia apparently has confusion at senior living and question of underlying dementia per rn at bedside/ has underlying liver cirrhosis recs ct brain-pending repeat eeg on nh3 reducing agents +brainstem reflexes but has cortical injury (2) Sepsis ICD Codes: A41.9 - Sepsis, unspecified organism Status: Acute Subjective Subjective Comments No acute events reported Active Medications Current Medications Medications (Trade) Dose Ordered Sig/Ned Route Start Time Stop Time Status Last Admin (Protonix Inj) 40 mg DAILY IV PUSH 07/26/17 16:00 07/29/17 08:34 (Duoneb Neb) 1 ampule Q6HR NEB INH 07/26/17 16:00 07/30/17 07:43 Miscellaneous Information 1 Q361D XX 07/26/17 15:45 (Chlorhexidine 2% Cloth) 3 pack Taper DAILY@04 TOP 07/27/17 04:00 07/23/18 03:59 07/30/17 04:00 (Chlorhexidine 2% Cloth) 3 pack UNSCH PRN TOP 07/26/17 15:45 (Yanet-Colace) 1 tab BID PO 07/26/17 21:00 07/29/17 20:28 (Milk Of Magnesia Liq) 30 ml Q12H PRN PO 07/26/17 15:45 (Senokot) 17.2 mg Q12H PRN PO 07/26/17 15:45 (Dulcolax Supp) 10 mg DAILY PRN RECTAL 07/26/17 15:45 (Lactulose Liq) 30 ml DAILY PRN PO 07/26/17 15:45 Dopamine HCl/ Dextrose 500 ml @ 26.25 mls/ hr TITRATE PRN IV 07/26/17 16:30 07/28/17 13:58 Norepinephrine Bitartrate 250 ml @ 7.5 mls/hr TITRATE PRN IV 07/26/17 17:15 07/28/17 04:12 (Brethine Inj) 1 mg UNSCH PRN SQ 07/26/17 17:15 Fentanyl Citrate 250 ml @ 5 mls/hr TITRATE PRN IV 07/26/17 17:15 07/29/17 15:41 (D50w (Vial) Inj) 50 ml UNSCH PRN IV PUSH 07/27/17 09:00 (Glucagon Inj) 1 mg UNSCH PRN OTHER 07/27/17 09:00 (NovoLIN R SUPPLEMENTAL SCALE) 1 Q4HR SQ 07/27/17 09:00 07/30/17 04:00 Potassium Chloride 100 ml @ 50 mls/hr Q2H PRN IV 07/28/17 07:15 Potassium Chloride 100 ml @ 50 mls/hr Q2H PRN IV 07/28/17 07:15 (K-Lyte Cl Eff) 50 meq UNSCH PRN PO 07/28/17 07:15 Potassium Chloride 100 ml @ 25 mls/hr UNSCH PRN IV 07/28/17 07:15 Potassium Chloride 100 ml @ 50 mls/hr Q2H PRN IV 07/28/17 07:15 Magnesium Sulfate 4 gm/Sodium Chloride 100 ml @ 50 mls/hr UNSCH PRN IV 07/28/17 07:15 (Mag-Ox) 800 mg UNSCH PRN PO 07/28/17 07:15 Magnesium Sulfate 2 gm/Sodium Chloride 100 ml @ 50 mls/hr UNSCH PRN IV 07/28/17 07:15 (K-Phos) 2,000 mg Q4H PRN PO 07/28/17 07:15 Sodium Phosphate 30 mmol/Sodium Chloride 250 ml @ 42 mls/hr UNSCH PRN IV 07/28/17 07:15 07/28/17 13:59 (K-Phos) 2,000 mg UNSCH PRN PO/TUBE 07/28/17 07:15 Potassium Phosphate 30 mmol/ Sodium Chloride 260 ml @ 42 mls/hr UNSCH PRN IV 07/28/17 07:15 Linezolid 300 ml @ 300 mls/hr Q12H IV 07/29/17 14:00 07/30/17 00:52 (ASP Crit: Doc ESBL, MDR A baumannii or P aer) 1 UNSCH X1 PRN .XX 07/29/17 16:45 07/30/17 16:44 ([facility]) 1 UNSCH X1 PRN XX 07/29/17 16:45 07/30/17 16:44 Meropenem 1000 mg/ Sodium Chloride 100 ml @ 200 mls/hr Q8H IV 07/29/17 17:00 07/30/17 00:52 (SoluCORTEF INJ) 50 mg Q12H IV PUSH 07/30/17 14:00 (Lactulose Liq) 30 ml TID PO 07/30/17 09:00 (Xifaxan) 550 mg BID PO 07/30/17 09:00 Allergies Allergies Coded Allergies No Known Allergies (Unverified07/26/17) Review of Systems All other ROS: Unable to obtain Exam I&O / VS Vital Signs Date Time Temp Pulse Resp B/P (MAP) Pulse Ox O2 Delivery O2 Flow Rate FiO2 07/30/17 07:33 100 40 07/30/17 06:00 79 07/30/17 04:30 100 40 07/30/17 04:00 71 07/30/17 04:00 98.3 71 105/58 (74) 100 07/30/17 04:00 40 07/30/17 02:00 76 07/30/17 01:06 100 40 07/30/17 00:00 40 07/30/17 00:00 98.2 80 100/57 (71) 99 07/30/17 00:00 80 07/29/17 22:15 100 40 07/29/17 22:00 74 07/29/17 20:00 72 07/29/17 20:00 98.2 72 16 85/53 (64) 99 Arterial Line 07/29/17 20:00 40 07/29/17 19:08 100 40 07/29/17 18:00 69 07/29/17 16:00 98.0 79 102/61 (75) 98 07/29/17 16:00 68 07/29/17 16:00 40 07/29/17 15:46 99 40 07/29/17 15:30 85 117/64 (81) 100 07/29/17 15:00 82 98/64 (75) 99 97/83 (88) 07/29/17 14:40 89 102/80 07/29/17 14:30 87 125/69 (87) 100 07/29/17 14:01 91 99/54 (69) 100 123/67 (85) 07/29/17 14:00 84 111/62 (78) 100 07/29/17 14:00 74 07/29/17 13:30 79 98/53 (68) 98 07/29/17 13:26 98 40 07/29/17 13:00 84 81/53 (62) 99 101/56 (71) 07/29/17 12:02 81 80/59 07/29/17 12:00 77 07/29/17 12:00 40 07/29/17 12:00 97.6 83 80/59 (66) 100 112/61 (78) 07/29/17 11:30 74 108/54 (72) 100 07/29/17 11:00 80 82/54 (63) 100 105/55 (72) 07/29/17 10:48 100 40 07/29/17 10:30 77 108/53 (71) 100 07/29/17 10:25 74 109/57 07/29/17 10:00 81 109/57 (74) 100 113/67 (82) 07/29/17 10:00 77 07/29/17 09:30 75 106/55 (72) 100 07/29/17 09:00 83 86/52 (63) 100 95/71 (79) 07/29/17 08:58 70 96/76 Exam Comments intubated, eyes open, not following, on fentanyl gtt, no blink to threat, + oculocephalic reflex present, grimaces to tactile, ou 3mm sluggish, + movement of all ext, no clonus, planter flexor Objective Micro and Labs Laboratory Tests Test 07/29/17 21:47 07/30/17 04:30 07/30/17 07:50 Ammonia 74 White Blood Count 7.9 Red Blood Count 3.06 Hemoglobin 11.1 Hematocrit 30.8 Mean Corpuscular Volume 100.8 Mean Corpuscular Hemoglobin 36.4 Mean Corpuscular Hemoglobin Concent 36.1 Red Cell Distribution Width 15.9 Platelet Count 50 Mean Platelet Volume 8.3 Neutrophils (%) (Auto) 84.7 Lymphocytes (%) (Auto) 6.2 Monocytes (%) (Auto) 9.0 Eosinophils (%) (Auto) 0.0 Basophils (%) (Auto) 0.1 Neutrophils # (Auto) 6.7 Lymphocytes # (Auto) 0.5 Monocytes # (Auto) 0.7 Eosinophils # (Auto) 0.0 Basophils # (Auto) 0.0 CBC Comment AUTO DIFF Blood Urea Nitrogen 34 Creatinine 0.89 Random Glucose 150 Calcium Level 8.0 Phosphorus Level 2.8 Magnesium Level 1.9 Sodium Level 140 Potassium Level 4.1 Chloride Level 103 Carbon Dioxide Level 30.6 Anion Gap 6 Estimat Glomerular Filtration Rate 86 Date/Time Source Procedure Growth Status 07/27/17 12:18 Blood Peripheral Aerobic Blood Culture - Preliminary NO GROWTH IN 2 DAYS Resulted 07/27/17 12:18 Blood Peripheral Anaerobic Blood Culture - Preliminary NO GROWTH IN 2 DAYS Resulted 07/28/17 04:00 Sputum Endotracheal Gram Stain - Final Resulted 07/28/17 04:00 Sputum Culture - Preliminary Gram Negative Noel Resulted 07/27/17 00:15 Urine Catheterized Urine Urine Culture - Final Escherichia Coli Esbl Positive Enterococcus Faecalis Vre Complete Vishal Marte MD Jul 30, 2017 08:37
[2017-07-30 08:51] LABS: FREE T3 1.22 PG/ML (2.18-3.98); FREE T4 1.07 NG/DL (0.76-1.46)
[2017-07-30] MEDS: LACTULOSE SYRUP 20 GM/30 ML CUP PO SCH ×3 (08:59→18:14)
[2017-07-30] MEDS: RIFAXIMIN 550 MG TAB PO SCH ×2 (08:59→20:41)
[2017-07-30] MEDS: DOCUSATE SODIUM 50 MG/SENNA 8.6 MG TAB PO SCH ×2 (08:59→20:41)
[2017-07-30] MEDS: PANTOPRAZOLE SODIUM 40 MG VIAL IV PUSH SCH (09:00)
[2017-07-30 09:14] LABS: BANDS 15 % (0-6); POLYS (SEG NEUTROPHILS) 73 % (16-70); WBC DIFF SAMPLE 100
[2017-07-30 09:15] LABS: PLATELET ESTIMATE SMEAR LOW (NORMAL); PLATELET MORPHOLOGY NORMAL (NORMAL); SCAN/DIFF FINAL DIFF MANUAL
--- NOTE | 2017-07-30 10:41 | HHI.IDPN ---
Subjective Subjective Remarks Patient is a 66-year-old inmate brought into the hospital after he was found down in his cell. CPR was initially started, however he was found to be DNR, so it was stopped, but the patient had spontaneous return of his respirations. He was bradycardic and transcutaneous pacing was started and the patient brought into the hospital. While in route to the hospital, patient apparently stated that he wished to have everything done. He went into respiratory arrest , and intubated in the field. In the emergency room he was hypotensive, and bradycardic. Patient was seen by a mortgage clerk, and his hemodynamics and cardiac status stabilized. Patient currently is off pressors. He remains on the vent, and on sedation. His urinalysis showed some pyuria, and the culture is growing Escherichia coli ESBL positive and VRE. His blood cultures are negative so far. His initial chest x-ray did not show any infiltrates. Patient also had elevated LFTs, and there is history of liver cirrhosis. He is afebrile. His WBC was elevated, and it's down to normal. Infectious disease consultation has been requested to make antibiotic recommendation. Notes reviewed D/W RN Temps ok Did not tolerate CPAP this morning - had apnea Awake when sedation decreased, very restless, but not following commands Sputum with E coli ESBL and PSAE WBC normal Antibiotics Meropenem Zyvox Other meds reviewed Past Medical History Atrial fibrillation. Positive PPD with treatment. Hepatitis C. COPD. Lower extremity edema. Pancytopenia. Liver cirrhosis Allergies: Coded Allergies: No Known Allergies (Unverified , 07/26/17) Objective . Vital Signs Date Time Temp Pulse Resp B/P (MAP) Pulse Ox O2 Delivery O2 Flow Rate FiO2 07/30/17 07:33 100 40 07/30/17 06:00 79 07/30/17 04:30 100 40 07/30/17 04:00 71 07/30/17 04:00 98.3 71 105/58 (74) 100 07/30/17 04:00 40 07/30/17 02:00 76 07/30/17 01:06 100 40 07/30/17 00:00 40 07/30/17 00:00 98.2 80 100/57 (71) 99 07/30/17 00:00 80 07/29/17 22:15 100 40 07/29/17 22:00 74 07/29/17 20:00 72 07/29/17 20:00 98.2 72 16 85/53 (64) 99 Arterial Line 07/29/17 20:00 40 07/29/17 19:08 100 40 07/29/17 18:00 69 07/29/17 16:00 98.0 79 102/61 (75) 98 07/29/17 16:00 68 07/29/17 16:00 40 07/29/17 15:46 99 40 07/29/17 15:30 85 117/64 (81) 100 07/29/17 15:00 82 98/64 (75) 99 97/83 (88) 07/29/17 14:40 89 102/80 07/29/17 14:30 87 125/69 (87) 100 07/29/17 14:01 91 99/54 (69) 100 123/67 (85) 07/29/17 14:00 84 111/62 (78) 100 07/29/17 14:00 74 07/29/17 13:30 79 98/53 (68) 98 07/29/17 13:26 98 40 07/29/17 13:00 84 81/53 (62) 99 101/56 (71) 07/29/17 12:02 81 80/59 07/29/17 12:00 77 07/29/17 12:00 40 07/29/17 12:00 97.6 83 80/59 (66) 100 112/61 (78) 07/29/17 11:30 74 108/54 (72) 100 07/29/17 11:00 80 82/54 (63) 100 105/55 (72) 07/29/17 10:48 100 40 . Laboratory Tests Test 07/29/17 04:38 07/30/17 04:30 White Blood Count 9.8 TH/MM3 7.9 TH/MM3 Red Blood Count 3.12 MIL/MM3 3.06 MIL/MM3 Hemoglobin 11.2 GM/DL 11.1 GM/DL Hematocrit 30.7 % 30.8 % Mean Corpuscular Volume 98.4 FL 100.8 FL Mean Corpuscular Hemoglobin 36.0 PG 36.4 PG Mean Corpuscular Hemoglobin Concent 36.5 % 36.1 % Red Cell Distribution Width 15.7 % 15.9 % Platelet Count 42 TH/MM3 50 TH/MM3 Mean Platelet Volume 7.7 FL 8.3 FL Neutrophils (%) (Auto) 83.6 % 84.7 % Lymphocytes (%) (Auto) 7.0 % 6.2 % Monocytes (%) (Auto) 9.3 % 9.0 % Eosinophils (%) (Auto) 0.0 % 0.0 % Basophils (%) (Auto) 0.1 % 0.1 % Neutrophils # (Auto) 8.2 TH/MM3 6.7 TH/MM3 Lymphocytes # (Auto) 0.7 TH/MM3 0.5 TH/MM3 Monocytes # (Auto) 0.9 TH/MM3 0.7 TH/MM3 Eosinophils # (Auto) 0.0 TH/MM3 0.0 TH/MM3 Basophils # (Auto) 0.0 TH/MM3 0.0 TH/MM3 CBC Comment AUTO DIFF AUTO DIFF Differential Total Cells Counted 100 100 Neutrophils % (Manual) 80 % 73 % Band Neutrophils % 15 % 15 % Lymphocytes % 1 % 3 % Monocytes % 4 % 9 % Neutrophils # (Manual) 9.3 TH/MM3 7.0 TH/MM3 Differential Comment FINAL DIFF MANUAL FINAL DIFF MANUAL Toxic Granulation Dohle Bodies PRESENT Platelet Estimate LOW LOW Platelet Morphology Comment NORMAL NORMAL Laboratory Tests Test 07/28/17 11:13 07/29/17 04:38 07/29/17 21:47 07/30/17 04:30 Phosphorus Level 2.4 MG/DL 2.5 MG/DL 2.8 MG/DL Blood Urea Nitrogen 22 MG/DL 34 MG/DL Creatinine 0.81 MG/DL 0.89 MG/DL Random Glucose 145 MG/DL 150 MG/DL Total Protein 5.6 GM/DL Albumin 1.4 GM/DL Calcium Level 8.0 MG/DL 8.0 MG/DL Magnesium Level 1.7 MG/DL 1.9 MG/DL Alkaline Phosphatase 52 U/L Aspartate Amino Transf (AST/SGOT) 66 U/L Alanine Aminotransferase (ALT/SGPT) 53 U/L Total Bilirubin 2.9 MG/DL Sodium Level 140 MEQ/L 140 MEQ/L Potassium Level 3.7 MEQ/L 4.1 MEQ/L Chloride Level 106 MEQ/L 103 MEQ/L Carbon Dioxide Level 25.5 MEQ/L 30.6 MEQ/L Anion Gap 9 MEQ/L 6 MEQ/L Estimat Glomerular Filtration Rate 96 ML/MIN 86 ML/MIN Ammonia 74 MCMOL/L Test 07/30/17 07:50 Ammonia 70 MCMOL/L Free Thyroxine 1.07 NG/DL Free Triiodothyronine (T3) pg/dL 1.22 PG/ML Thyroid Stimulating Hormone 3rd Gen 1.890 uIU/ML Microbiology Date/Time Source Procedure Growth Status 07/27/17 12:18 Blood Peripheral Aerobic Blood Culture - Preliminary NO GROWTH IN 2 DAYS Resulted 07/27/17 12:18 Blood Peripheral Anaerobic Blood Culture - Preliminary NO GROWTH IN 2 DAYS Resulted 07/27/17 12:06 Blood Peripheral Aerobic Blood Culture - Preliminary NO GROWTH IN 2 DAYS Resulted 07/27/17 12:06 Blood Peripheral Anaerobic Blood Culture - Preliminary NO GROWTH IN 2 DAYS Resulted 07/28/17 04:00 Sputum Endotracheal Gram Stain - Final Complete 07/28/17 04:00 Sputum Culture - Final Escherichia Coli Esbl Positive Pseudomonas Aeruginosa Complete Imaging Abdomen Ultrasound 07/28/17 0000 Signed Impressions: Service Date/Time: Friday, July 28, 2017 08:20 - CONCLUSION: 1. Trace ascites Willian Parks MD Liver Ultrasound 07/27/17 0000 Signed Impressions: Service Date/Time: Thursday, July 27, 2017 12:06 - CONCLUSION: Cirrhosis of liver with surrounding ascites and possible occlusion of the portal vein. Gallstones. Rafael Breaux MD Chest CT 07/27/17 0000 Signed Impressions: Service Date/Time: Thursday, July 27, 2017 11:09 - CONCLUSION: 1. There is a left-sided SVC present with a central line identified within the lumen and terminating within the region of the coronary sinus. 2. Moderate ascites with cirrhotic changes of the liver and multiple varices consistent with portal hypertension. 3. Probably positioned endotracheal tube and orogastric tube. 4. Moderate to severe centrilobular emphysematous change. Monika Sims MD Chest X-Ray 07/26/17 1404 Signed Impressions: Service Date/Time: Wednesday, July 26, 2017 14:49 - CONCLUSION: 1. ETT approximately 1.5 cm above the melinda. NGT in the stomach. 2. No acute radiographic cardiopulmonary abnormality. Jim Mckenna MD Head CT 07/26/17 0000 Signed Impressions: Service Date/Time: Thursday, July 27, 2017 11:06 - CONCLUSION: 1. No acute intracranial abnormality. 2. There is a small amount of fluid in the posterior aspect of both maxillary sinuses. Jayden Olvera MD Physical Exam GENERAL: Awake, not following commands, not focusing, restless, on the vent SKIN: Cool and dry. Has purpuric lesions on his upper chest. HEAD: Atraumatic. Normocephalic. No temporal wasting, or tenderness. EYES: [place] conjunctiva. No petechia or hemorrhage. Pupils equal, round pinpoint. Mild scleral icterus. No injection or drainage. EARS, NOSE AND THROAT: Nose without bleeding or purulent nasal discharge. Endotracheal tube in mouth NECK: Trachea midline. Supple and not tender, no meningeal signs CARDIOVASCULAR: Regular rate and rhythm. Soft heart sounds. No murmurs, rubs or gallops heard RESPIRATORY: Clear to auscultation. Breath sounds equal bilaterally. No rales , wheezing or rhonchi. Decreased BS at bases. ABDOMEN: Soft, mildly distended, no reaction to palpation. Bowel sounds present and hypoactive. EXTREMITIES: No clubbing, cyanosis, or edema. No joint effusion, has good ROM. Cool, no mottling NEUROLOGICAL: [place] and restless, not following. PSYCHIATRIC: Unable to assess LINE: No evidence of infection : Hernandez in place, urine looks clear Assessment & Plan Remarks IMPRESSION UTI, C/S with E coli ESBL+ and VRE S/P sinus asad arrest Respiratory failure COPD findings seen on CT, has E coli ESBL and PSAE in sputum C/S - ?HCAP - G/S not impressive for presence of WBC Liver cirrhosis, portal vein thrombosis Known Hep C Hx (+) PPD, per record treated - no evidence of TB on CT RECOMMENDATION Continue Merem Continue Zyvox - follow CBC Follow C/S Monitor progress Weaning as tolerated D/W Monse Deras MD Jul 30, 2017 10:41
--- NOTE | 2017-07-30 12:40 | MG ---
cc: CONSTANTIN GONSALEZ MD Lab No: [id number] Date: 07/30/2017 Age: 66 Sex: M Race: __ DATE OF 1950 INDICATIONS This is a 66-year-old intubated from long term with a bradycardic type episode. DESCRIPTION Generalized diffuse 1-3 Hz delta activity occurring 20 to 50 microvolts. No driving with photic stimulation. Mild EEG variability reactivity. Had some body shaking occurring on epoch 132. No clear epileptic correlation or high-frequency artifact. Left posterior channel showing some rhythmic slow theta. No phase reversals, shaking of his legs. No epileptic correlation. No driving with photic stimulation. INTERPRETATION Severe encephalopathy, shaking episodes and jerking without any epileptic correlation. Clinical correlation. Constantin Gonsalez MD MG/DJL /11:49 AM /12:26 PM
[2017-07-30] MEDS: fentaNYL DRIP 250 ML IV PRN (12:42)
[2017-07-31] VITALS (32 sets, daily range): BP systolic 104–149; BP diastolic 69–83; PULSE 66–98; RESP 14–33; TEMP 98.3–98.8; O2SAT 92–100
[2017-07-31] MEDS: MEROPENEM INJ 1,000 MG in SODIUM CHLORIDE 0.9% INJ 100 ML IV SCH ×3 (00:24→18:36)
[2017-07-31] MEDS: HYDROCORTISONE SOD SUCCINATE 100 MG VIAL IV PUSH SCH ×2 (01:28→13:22)
[2017-07-31] MEDS: LINEZOLID 600 MG PREMIX 300 ML IV SCH ×2 (01:28→13:22)
[2017-07-31] MEDS: fentaNYL DRIP 250 ML IV PRN (01:28)
[2017-07-31] MEDS: CHLORHEXIDINE GLUCONATE 2 % 1 PACK (2 CLOTHS) TOP SCH (04:00)
[2017-07-31] MEDS: INSULIN NovoLIN REGULAR SUPPLEMENTAL SCALE SQ SCH ×6 (04:00→19:58)
[2017-07-31 05:14] LABS: AUTOMATED NEUTROPHIL # 7.9 TH/MM3 (1.8-7.7); LYMPH % 7.2 % (9.0-44.0); LYMPHOCYTE # 0.7 TH/MM3 (1.0-4.8); MEAN CELL VOLUME 101.3 FL (80.0-100.0); MEAN CORPUSCULAR HEMOGLOBIN 35.4 PG (27.0-34.0); MONO % 10.2 % (0.0-8.0); NEUT % 82.6 % (16.0-70.0); PLATELET COUNT 71 TH/MM3 (150-450); RED BLOOD COUNT 3.26 MIL/MM3 (4.50-5.90); RED CELL DISTRIBUTION WIDTH 15.7 % (11.6-17.2); WHITE BLOOD COUNT 9.6 TH/MM3 (4.0-11.0)
[2017-07-31 05:23] LABS: HEMO FLAGS AUTO DIFF
[2017-07-31 05:51] LABS: ALKALINE PHOSPHATASE 58 U/L (45-117); ALT (GPT) 85 U/L (12-78); ANION GAP 6 MEQ/L (5-15); AST (GOT) 108 U/L (15-37); BICARBONATE 30.9 MEQ/L (21.0-32.0); BLOOD UREA NITROGEN 42 MG/DL (7-18); CHLORIDE 102 MEQ/L (98-107); GLOMERULAR FILTRATION RATE 80 ML/MIN (>89); MAGNESIUM 2.1 MG/DL (1.5-2.5); POTASSIUM 4.9 MEQ/L (3.5-5.1); SODIUM (NA) 139 MEQ/L (136-145); TOTAL BILIRUBIN ADULT 2.4 MG/DL (0.2-1.0)
--- NOTE | 2017-07-31 07:49 | HHI.CCPN ---
Subjective Remarks/Hospital Course The patient is a 66-year-old male with past medical history of COPD, hepatitis C , atrial fibrillation who presented to [facility] ED after he was found down in his cell at a local [facility]. CPR was initiated prior to his apparent DNR being discovered. EMS arrived and they were able to get him back with transcutaneous pacing, however, during that time the patient wished to have everything done. He became unresponsive and was intubated in the field and he has been a transcutaneously paced. On arrival to the emergency room, the patient was bradycardic and hypotensive. He was seen by Dr. Paz and started on dopamine drip currently at 10 mcg. The patient was given Digibind empirically. however, his Digoxin level came back subtherapeutic at 0.3. His laboratory data significant for hyperkalemia with potassium level 6.7, creatinine of 1.21. The patient scheduled to receive 10 units IV insulin D50, calcium, sodium bicarb and kayexalate for treatment of his hyperkalemia. EKG showed junctional rhythm. Intraventricular conduction delay with a rate of 33 beats per minute. The chest x-ray in the ER showed ET tube approximately 1.5 cm above the melinda. No acute radiographic cardiopulmonary abnormalities identified. His troponin level was less than 0.02 with total CK of 80. The rest of the history is limited as the patient is intubated. 07/27: Patient remains sedated and intubated. On Dopamine 12 mics, Levophed 11 mics. K 5.5 this morning. Afebrile, transcutaneously paced. 10 No events overnight. Off sedation Levophed down 2 mics, Dopamine [address] brain yesterday no acute findings. 07/29 Patient remains intubated on no sedation. Off Levophed, dopamine down 3 mics. Afebrile. 07/30 No events overnight. Patient is off all pressors sedated with Fentanyl and intubated. Afebrile. 07/31 Patient remains intubated and sedated with Fentanyl. Afebrile. Repeat EEG yesterday showed severe encephalopathy with no seizure activity. Objective Vital Signs Date Time Temp Pulse Resp B/P (MAP) Pulse Ox O2 Delivery O2 Flow Rate FiO2 07/31/17 07:13 97 40 07/31/17 06:00 84 07/31/17 04:00 98.6 16 133/77 (95) Intake and Output 07/31/17 07/31/17 08/01/17 08:00 16:00 00:00 Intake Total 1195 ml Output Total 500 ml Balance 695 ml Result Diagram: 07/31/17 0407 07/31/17 0407 Other Results Laboratory Tests Test 07/30/17 07:50 07/31/17 04:07 Ammonia 70 MCMOL/L Free Thyroxine 1.07 NG/DL Free Triiodothyronine (T3) pg/dL 1.22 PG/ML Thyroid Stimulating Hormone 3rd Gen 1.890 uIU/ML White Blood Count 9.6 TH/MM3 Red Blood Count 3.26 MIL/MM3 Hemoglobin 11.5 GM/DL Hematocrit 33.0 % Mean Corpuscular Volume 101.3 FL Mean Corpuscular Hemoglobin 35.4 PG Mean Corpuscular Hemoglobin Concent 35.0 % Red Cell Distribution Width 15.7 % Platelet Count 71 TH/MM3 Mean Platelet Volume 8.4 FL Neutrophils (%) (Auto) 82.6 % Lymphocytes (%) (Auto) 7.2 % Monocytes (%) (Auto) 10.2 % Eosinophils (%) (Auto) 0.0 % Basophils (%) (Auto) 0.0 % Neutrophils # (Auto) 7.9 TH/MM3 Lymphocytes # (Auto) 0.7 TH/MM3 Monocytes # (Auto) 1.0 TH/MM3 Eosinophils # (Auto) 0.0 TH/MM3 Basophils # (Auto) 0.0 TH/MM3 CBC Comment AUTO DIFF Blood Urea Nitrogen 42 MG/DL Creatinine 0.95 MG/DL Random Glucose 132 MG/DL Total Protein 6.3 GM/DL Albumin 1.6 GM/DL Calcium Level 8.6 MG/DL Phosphorus Level 3.3 MG/DL Magnesium Level 2.1 MG/DL Alkaline Phosphatase 58 U/L Aspartate Amino Transf (AST/SGOT) 108 U/L Alanine Aminotransferase (ALT/SGPT) 85 U/L Total Bilirubin 2.4 MG/DL Sodium Level 139 MEQ/L Potassium Level 4.9 MEQ/L Chloride Level 102 MEQ/L Carbon Dioxide Level 30.9 MEQ/L Anion Gap 6 MEQ/L Estimat Glomerular Filtration Rate 80 ML/MIN Imaging Last Impressions Abdomen Ultrasound 07/28/17 0000 Signed Impressions: Service Date/Time: Friday, July 28, 2017 08:20 - CONCLUSION: 1. Trace ascites Willian Parks MD Liver Ultrasound 07/27/17 0000 Signed Impressions: Service Date/Time: Thursday, July 27, 2017 12:06 - CONCLUSION: Cirrhosis of liver with surrounding ascites and possible occlusion of the portal vein. Gallstones. Rafael Breaux MD Chest CT 07/27/17 0000 Signed Impressions: Service Date/Time: Thursday, July 27, 2017 11:09 - CONCLUSION: 1. There is a left-sided SVC present with a central line identified within the lumen and terminating within the region of the coronary sinus. 2. Moderate ascites with cirrhotic changes of the liver and multiple varices consistent with portal hypertension. 3. Probably positioned endotracheal tube and orogastric tube. 4. Moderate to severe centrilobular emphysematous change. Monika Sims MD Chest X-Ray 07/26/17 1404 Signed Impressions: Service Date/Time: Wednesday, July 26, 2017 14:49 - CONCLUSION: 1. ETT approximately 1.5 cm above the melinda. NGT in the stomach. 2. No acute radiographic cardiopulmonary abnormality. Jim Mckenna MD Head CT 07/26/17 0000 Signed Impressions: Service Date/Time: Thursday, July 27, 2017 11:06 - CONCLUSION: 1. No acute intracranial abnormality. 2. There is a small amount of fluid in the posterior aspect of both maxillary sinuses. Jayden Olvera MD Objective Remarks GENERAL: Patient is 66 yo critically ill intubated SKIN: Warm and dry. HEAD: Normocephalic. EYES: No scleral icterus. No injection or drainage. NECK: Supple, trachea midline. No JVD or lymphadenopathy.Intubated. CARDIOVASCULAR: Regular rate and rhythm without murmurs, gallops, or rubs. RESPIRATORY: Breath sounds equal bilaterally. No accessory muscle use. GASTROINTESTINAL: Abdomen soft, non-tender, nondistended. MUSCULOSKELETAL: No cyanosis, or edema. Neuro: Intubated A/P Assessment and Plan 1. Vent dependent respiratory failure. 2. Sinus asad arrest. 3. s/p Hyperkalemia. 4. Hyponatremia. 5. History of atrial fibrillation. 6. COPD. 7. Hepatitis C. 8. Thrombocytopenia. 9 Elevated AST 10 Thrombocytopenia Plan Neuro: On Fentanyl infusion for sedation. Daily sedation vacation. Monitor neuro status . Neuro is following 07/27: CT brain: No acute findings. 07/28: EEG : Encephalopathy, repeat EEG 07/30: Severe encephalopathy, no seizure activity UDS: + Benzos. Change Lactulose 30ml Q6, on Rifaximin. Monitor Ammonia level. Pulm: Continue with vent support and maintain sats >92%. Bronchodilators, ICU vent bundle. Check CXR and ABG. SBT trials as montserrat. CT chest: cirrhotic changes of the liver and multiple varices consistent with portal hypertension. Moderate to severe centrilobular emphysematous change. CV: Monitor HR and BP maintain MAP >65 mmHg. HC 50mg IV Q12 s/p Digibind empirically in ED, Digoxin level: 0.3. Cards is following- Dr. Paz. Echo showed EF 40-45% : Monitor renal function, I/O's, electrolytes replacement as needed. GI: On Protonix 40mg daily, tube feeds- Glucerna 1.5 @ 45ml/hr Monitor LFT's, US liver: Cirrhosis of liver with trace ascites and possible occlusion of the portal vein. Gallstones. Hepatitis profile pending ID: On Merrem and Zyvox, monitor for signs of infections ( Fever, WBC) ID is following. Check sputum cx, UA with cx if indicated 07/27 Urine cx: E.coli ESBL, VRE 07/27 BC: NGTD, 07/28 sputum: Pseudomonas, ESBL, E.coli Heme: Monitor CBC Endo:On Medium SSI with accuchecks for glycemic control TSH: 1.89, FT4: 1.07, FT3: 1.22 GI prophylaxis- Protonix 40mg daily DVT prophylaxis- SCD's, not on chemical AC prophylaxis due to thrombocytopenia Lines: Right Rad Art line, Left subclavian CVP placed 07/26 Consult palliaticve care to asses with goals of care CCT 30 mins Carlton Lopez MD Jul 31, 2017 07:49
[2017-07-31 08:07] LABS: PLATELET ESTIMATE SMEAR LOW (NORMAL); PLATELET MORPHOLOGY NORMAL (NORMAL); SCAN/DIFF AUTO DIFF CONFIRMED
[2017-07-31] MEDS: DOCUSATE SODIUM 50 MG/SENNA 8.6 MG TAB PO SCH ×2 (08:49→19:58)
[2017-07-31] MEDS: RIFAXIMIN 550 MG TAB PO SCH ×2 (08:49→19:59)
[2017-07-31] MEDS: LACTULOSE SYRUP 20 GM/30 ML CUP PO SCH ×4 (08:49→19:58)
[2017-07-31] MEDS: PANTOPRAZOLE SODIUM 40 MG VIAL IV PUSH SCH (08:49)
--- NOTE | 2017-07-31 09:06 | RADRPT ---
EXAM DATE/TIME: 07/31/2017 08:01 [place] COMPARISON: CT THORAX W/O CONTRAST, July 27, 2017, 11:09. CHEST SINGLE AP, July 26, 2017, 20:48. INDICATIONS : Shortness of breath. MEDICAL HISTORY : Cardiovascular disease. Chronic obstructive pulmonary disease. A fib SURGICAL HISTORY : None. ENCOUNTER: Subsequent ACUITY: 4 - 6 days PAIN SCORE: Non-responsive. LOCATION: Bilateral chest FINDINGS: A single AP semierect portable view of the chest was obtained. The endotracheal tube remains in plac e with the tip approximately 2 cm above the melinda. A nasogastric tube is again seen coursing through the esophagus and into the stomach. The left subclavian central venous line remains in place but is again noted to have an abnormal course extending along the left side of the mediastinum with the tip projected over the left mid heart border. Abnormal hazy opacity is now noted at the left lung base wh ich is new from the prior study. Right lung is clear. There are multiple overlying electrocardiogram leads. Heart size is within normal limits. The left costophrenic angle is blunted. CONCLUSION: 1. Stable appearance of the left subclavian central venous catheter which again is noted to have an a bnormal course. On the CT this was noted to terminate within the region of the coronary sinus. 2. New abnormal opacity at the left lung base which may represent infiltrate and/or effusion. This co uld represent pneumonia. Urbano Thibodeaux MD on July 31, 2017 at 9:01 Board Certified Radiologist. This report was verified electronically.
[2017-07-31 09:22] LABS: BACTERIA, URINE RARE /hpf; BLOOD, URINE SMALL (NEG); COMMENT (UR) CATH-CULTURE IND; CULTURE IF INDICATED CATH CULTURE IND; GLUCOSE,URINE NEG (NEG); HYALINE CAST, URINE 42 /lpf (RARE); KETONE, URINE TRACE mg/dL (NEG); MUCUS URINE FEW /lpf (OCC); NITRITE,URINE NEG (NEG); SQUAMOUS EPITHELIAL CELL URINE <1 /hpf (0-5); URINE COLOR DARK-YELLOW (YELLW/STRAW)
--- NOTE | 2017-07-31 11:29 | PD.CONS ---
Consult Service Palliative Care . Consult Requested By Dr. Cortez . Primary Care Physician Unknown . Reason for Consultation a. To assist with evaluation and management of symptoms including: Pain, dyspnea, encephalopathy b. To assist medical decision maker(s) with: better understanding of current medical conditions; weighing benefits/burdens of medical treatment options; making medical treatment decisions. . HPI History of Present Illness Mr. Hollis is a 66 year old male with a history of atrial fibrillation, asthma/ COPD, hepatitis C and pancytopenia. The [facility] an [facility] He presented to [facility] ED on 07/26/2017 after being found down in his cell. Apparently CPR was initiated prior to his valid DNR being discovered. Upon EMS arrival, patient was placed on transcutaneous pacing. At some point during this process, it appears the patient was able to indicate that he wanted everything done. Patient became unresponsive fairly quickly after that and was subsequently intubated en route to the hospital. Additional diagnostic data: * Vital signs: Pulse 12 (pacer rate @ 70), respirations 17, BP 107/61, oxygen saturation 98% on an 100% FiO2 p.m. mechanical ventilator. * WBC: 9.8, hemoglobin 14.1, hematocrit 39.8, platelets 109, neutrophils 75.8% * Sodium: 132, potassium 6.7, chloride 101, carbon dioxide 24.8, glucose 113, calcium 8.1, magnesium 1.7 * BUN: 30, creatinine 1.21, GFR 60 * Total creatine kinase: 80 * Troponin: <0.02 * TSH third generation: 6.930 * PT: 13.9, INR 1.2, APTT 32.9 * Digoxin level of 0.3 * CT brain showed no acute intracranial abnormalities. * Chest x-ray with no evidence of pneumothorax; no cardiopulmonary abnormality seen Patient presented to the ED bradycardic and hypotensive. Dr. Isaac, cardiology, evaluated the patient. He was started on a dopamine drip. He was empirically treated with Digibind or potential digoxin toxicity, however his digoxin level came back subtherapeutic at 0.3. It is unclear if the Digibind was given before or after the digoxin level was drawn. EKG showed junctional rhythm. Echocardiogram on 07/27/2017 with EF 40-45%. An ultrasound of the liver was ordered on 07/27/2017 secondary to increased lab values; imaging showed cirrhosis of the liver with surrounding ascites and possible occlusion of the portal vein. CT of the chest on the same day showed moderate ascites with cirrhotic changes of the liver and multiple varices consistent with portal hypertension, moderate to severe centrilobular emphysematous change. Nephrology was consulted for patient's hyperkalemia and acute renal failure. Patient's initial potassium was elevated at 6.7 which was managed with insulin, calcium, Kayexalate and sodium bicarbonate. Patient's creatinine was 1.20 on presentation, decreasing to 1.0 the following day. Urine output approximately 650ml over 24 hours. EEG on 07/28/17 showing encephalopathy possibly secondary to sepsis/ hyperammonemia/hypotension/hypoxia. Apparently patient has some confusion at baseline, questionable underlying dementia. Neurology following. His urinalysis showed some pyuria, and the culture grew Escherichia coli ESBL positive and VRE. Infectious disease was consulted for recommendations; plan to continue Zyvox; change Zosyn to Meropenem. Blood cultures showing NGTD. Sputum culture from 07/28/17 growing E coli ESBL and PSAE 07/31/17: Patient remains intubated on mechanical; sedated with fentanyl. Afebrile. Off pressor support. A follow-up EEG on 07/30/17 showed severe encephalopathy with no seizure activity. Follow-up urine culture pending. Follow-up chest x-ray this morning showed a new abnormal opacity at the left lung base which may represent infiltrate and/or effusion, could represent pneumonia. Palliative Care was consulted to assist with symptom management and to discuss with the patient/family the benefits and burdens of his current illnesses and the options regarding future care. . Review of Systems ROS Limitations: Intubated Constitutional: COMPLAINS OF: Pain Respiratory: COMPLAINS OF: Shortness of breath Hematologic/Lymphatics: COMPLAINS OF: Bruising Past Family Social History Coded Allergies: No Known Allergies (Unverified , 07/26/17) Past Medical History Atrial fibrillation Asthma/COPD Hepatitis C Pancytopenia Liver disease . Past Surgical History None known at this time. . Reported Medications Duoneb (Ipratropium-Albuterol Neb) 0.5-2.5 Mg/3 Ml Neb 3 Ml NEB BID PRN Oxygen (O2) (Miscellaneous Medication) Inha Liter DAVID.CANULA PRN Oxygen Concentrator Portable Gaseous 2 L/min via Nasal Canula Continuous For 99 months Lasix (Furosemide) 20 Mg Tab 20 Mg PO DAILY Flomax (Tamsulosin HCl) 0.4 Mg Cap 0.4 Mg PO DAILY Alvesco Inh (Ciclesonide Inh) 80 Mcg/Act Aero 1 Puff INH BID Protonix (Pantoprazole Sodium) 40 Mg Tab 40 Mg PO DAILY Klor-Con 10 (Potassium Chloride) 10 Meq Tab 10 Meq PO DAILY Aldactone (Spironolactone) 50 Mg Tab 50 Mg PO BID Diltiazem ER 12 HR (Diltiazem HCl) 120 Mg Caper 120 Mg PO DAILY Lanoxin (Digoxin) 125 Mcg Tablet 125 Mcg PO DAILY Hold if pulse below 60 Aspirin Adult Low Strength (Aspirin) 81 Mg Tabdr 81 Mg PO DAILY Pepto-Bismol Liq (Bismuth Subsalicylate) 262 Mg/15 Ml Susp 30 Ml PO PRN Do not exceed 8 doses (240 mL or 16 tbsp) in 24 hours. [Ensure] 1 Can PO TID Propranolol (Propranolol HCl) 60 Mg Tab 60 Mg PO Q12HR Xopenex Hfa 15 GM Inh (Levalbuterol 15 GM Inh) 45 Mcg/Act Aer 2 Puff INH Q4-6H PRN Shake well before using. (1 puff = 45 mcg) . Current Medications Medications (Trade) Dose Ordered Sig/Ned Route Start Time Stop Time Status Last Admin (Protonix Inj) 40 mg DAILY IV PUSH 07/26/17 16:00 07/31/17 08:49 Miscellaneous Information 1 Q361D XX 07/26/17 15:45 (Chlorhexidine 2% Cloth) 3 pack Taper DAILY@04 TOP 07/27/17 04:00 07/23/18 03:59 07/31/17 04:00 (Chlorhexidine 2% Cloth) 3 pack UNSCH PRN TOP 07/26/17 15:45 (Yanet-Colace) 1 tab BID PO 07/26/17 21:00 07/31/17 08:49 (Milk Of Magnesia Liq) 30 ml Q12H PRN PO 07/26/17 15:45 (Senokot) 17.2 mg Q12H PRN PO 07/26/17 15:45 (Dulcolax Supp) 10 mg DAILY PRN RECTAL 07/26/17 15:45 (Lactulose Liq) 30 ml DAILY PRN PO 07/26/17 15:45 Dopamine HCl/ Dextrose 500 ml @ 26.25 mls/ hr TITRATE PRN IV 07/26/17 16:30 07/28/17 13:58 Norepinephrine Bitartrate 250 ml @ 7.5 mls/hr TITRATE PRN IV 07/26/17 17:15 07/28/17 04:12 (Brethine Inj) 1 mg UNSCH PRN SQ 07/26/17 17:15 Fentanyl Citrate 250 ml @ 5 mls/hr TITRATE PRN IV 07/26/17 17:15 07/31/17 01:28 (D50w (Vial) Inj) 50 ml UNSCH PRN IV PUSH 07/27/17 09:00 (Glucagon Inj) 1 mg UNSCH PRN OTHER 07/27/17 09:00 (NovoLIN R SUPPLEMENTAL SCALE) 1 Q4HR SQ 07/27/17 09:00 07/30/17 16:00 Potassium Chloride 100 ml @ 50 mls/hr Q2H PRN IV 07/28/17 07:15 Potassium Chloride 100 ml @ 50 mls/hr Q2H PRN IV 07/28/17 07:15 (K-Lyte Cl Eff) 50 meq UNSCH PRN PO 07/28/17 07:15 Potassium Chloride 100 ml @ 25 mls/hr UNSCH PRN IV 07/28/17 07:15 Potassium Chloride 100 ml @ 50 mls/hr Q2H PRN IV 07/28/17 07:15 Magnesium Sulfate 4 gm/Sodium Chloride 100 ml @ 50 mls/hr UNSCH PRN IV 07/28/17 07:15 (Mag-Ox) 800 mg UNSCH PRN PO 07/28/17 07:15 Magnesium Sulfate 2 gm/Sodium Chloride 100 ml @ 50 mls/hr UNSCH PRN IV 07/28/17 07:15 (K-Phos) 2,000 mg Q4H PRN PO 07/28/17 07:15 Sodium Phosphate 30 mmol/Sodium Chloride 250 ml @ 42 mls/hr UNSCH PRN IV 07/28/17 07:15 07/28/17 13:59 (K-Phos) 2,000 mg UNSCH PRN PO/TUBE 07/28/17 07:15 Potassium Phosphate 30 mmol/ Sodium Chloride 260 ml @ 42 mls/hr UNSCH PRN IV 07/28/17 07:15 Linezolid 300 ml @ 300 mls/hr Q12H IV 07/29/17 14:00 07/31/17 01:28 Meropenem 1000 mg/ Sodium Chloride 100 ml @ 200 mls/hr Q8H IV 07/29/17 17:00 07/31/17 09:14 (SoluCORTEF INJ) 50 mg Q12H IV PUSH 07/30/17 14:00 07/31/17 01:28 (Lactulose Liq) 30 ml TID PO 07/30/17 09:00 07/31/17 08:49 (Xifaxan) 550 mg BID PO 07/30/17 09:00 07/31/17 08:49 . Family History Pending further conversation with patient's family. . Substance Use Tobacco: None known at this time Alcohol: None known Prescription med abuse: None known Illicits: None known . Psychosocial History Per patient's brother (Gerhard). Patient is originally from [place]. He has 2 older brothers. Mikey lives in [place] and is apparently in poor health. Gerhard lives in [place]. Gerhard states he is the designated health care surrogate; he states the [facility] has documentation that designates him as the healthcare surrogate decision maker. The patient worked as a truck assembler. Apparently, the patient has been incarcerated since 199 Spiritual/Cultural Factors Pending further discussion with patient's family Documented care wishes: No document care wishes are available at this time. . Today's verbally stated goals: Patient is unable to participate in establishing medical treatment goals secondary to his current clinical condition. . Family/friends goals: Patient's brother, Gerhard, states he has spoken with his family, and they are all leaning toward comfort focused care. He states he has had conversations with his brother about this previously, and his brother would not want to be alive artificially for any length of time. He confirms the patient was a DNR, but states he feels it is understandable that his brother would ask for help during an acute event such as the one he experienced on 07/26/2017. He would like to think about CODE STATUS, specifically considering escalation of care. . Physical Exam Vital Signs Date Time Temp Pulse Resp B/P (MAP) Pulse Ox O2 Delivery O2 Flow Rate FiO2 07/31/17 07:13 97 40 07/31/17 06:00 84 07/31/17 04:00 98.6 67 16 133/77 (95) 98 07/31/17 04:00 67 07/31/17 04:00 40 07/31/17 03:22 100 40 07/31/17 02:00 74 07/31/17 00:00 98.3 66 16 120/73 (89) 99 07/31/17 00:00 40 07/31/17 00:00 66 07/30/17 23:12 99 40 07/30/17 22:00 57 07/30/17 20:00 65 07/30/17 20:00 98.3 65 16 116/69 (85) 100 07/30/17 20:00 40 07/30/17 19:59 100 40 07/30/17 18:00 58 07/30/17 16:30 77 121/67 (85) 99 07/30/17 16:00 40 07/30/17 16:00 69 07/30/17 16:00 98.0 69 105/61 (76) 99 07/30/17 15:40 100 40 07/30/17 15:30 83 121/65 (83) 100 07/30/17 15:00 57 124/68 (86) 100 07/30/17 14:30 63 116/65 (82) 99 07/30/17 14:00 66 116/69 (85) 99 07/30/17 14:00 66 07/30/17 13:00 78 16 105/66 (79) 98 07/30/17 12:22 99 40 07/30/17 12:00 97.8 90 16 104/71 (82) 98 07/30/17 12:00 40 07/30/17 12:00 90 07/30/17 11:00 83 16 108/66 (80) 100 07/30/17 10:00 99 40 07/30/17 10:00 86 16 100/71 (81) 98 07/30/17 10:00 86 . Exam CONSTITUTIONAL/GENERAL: This is a 66-year-old male who appears older than his documented age, currently intubated on mechanical ventilator TUBES/LINES/DRAINS: CVL, PIV x 1, NGT, ETT, CVL SKIN: + Purpura Ecchymoses on upper extremities. No wounds seen anteriorly. Skin temperature appropriate. Not diaphoretic. HEAD: Atraumatic. Normocephalic. EYES: Pupils round and equal, sluggish. No scleral icterus. No injection or drainage. ENT: Nose without bleeding or purulent drainage. NECK: Trachea midline. Supple, nontender. No palpable thyroid enlargement or nodularity. CARDIOVASCULAR: Regular rate and rhythm without murmurs, gallops, or rubs. No JVD. Peripheral pulses symmetric. RESPIRATORY/CHEST: Intubated on mechanical ventilator Breath sounds diminished bilaterally. No sensory muscle use GASTROINTESTINAL: Abdomen soft, non-tender, nondistended. No hepato-splenomegaly , or palpable masses. No guarding. Hypoactive bowel sounds GENITOURINARY: Without palpable bladder distension. MUSCULOSKELETAL: Extremities without clubbing, cyanosis, or edema. No mottling or clubbing. LYMPHATICS: No palpable cervical or supraclavicular adenopathy. NEUROLOGICAL: Sedated on fentanyl. Eyes open spontaneously; does not blink to threat. PSYCHIATRIC: Difficult to assess given patient's clinical condition. No obvious anxiety/depression. no apparent hallucinations or other psychotic thought process. . Diagnostic Tests Laboratory Laboratory Tests Test 07/28/17 11:13 07/29/17 04:38 07/29/17 07:40 07/29/17 21:47 Phosphorus Level 2.4 MG/DL (2.5-4.9) 2.5 MG/DL (2.5-4.9) White Blood Count 9.8 TH/MM3 (4.0-11.0) Red Blood Count 3.12 MIL/MM3 (4.50-5.90) Hemoglobin 11.2 GM/DL (13.0-17.0) Hematocrit 30.7 % (39.0-51.0) Mean Corpuscular Volume 98.4 FL (80.0-100.0) Mean Corpuscular Hemoglobin 36.0 PG (27.0-34.0) Mean Corpuscular Hemoglobin Concent 36.5 % (32.0-36.0) Red Cell Distribution Width 15.7 % (11.6-17.2) Platelet Count 42 TH/MM3 (150-450) Mean Platelet Volume 7.7 FL (7.0-11.0) Neutrophils (%) (Auto) 83.6 % (16.0-70.0) Lymphocytes (%) (Auto) 7.0 % (9.0-44.0) Monocytes (%) (Auto) 9.3 % (0.0-8.0) Eosinophils (%) (Auto) 0.0 % (0.0-4.0) Basophils (%) (Auto) 0.1 % (0.0-2.0) Neutrophils # (Auto) 8.2 TH/MM3 (1.8-7.7) Lymphocytes # (Auto) 0.7 TH/MM3 (1.0-4.8) Monocytes # (Auto) 0.9 TH/MM3 (0-0.9) Eosinophils # (Auto) 0.0 TH/MM3 (0-0.4) Basophils # (Auto) 0.0 TH/MM3 (0-0.2) CBC Comment AUTO DIFF Differential Total Cells Counted 100 Neutrophils % (Manual) 80 % (16-70) Band Neutrophils % 15 % (0-6) Lymphocytes % 1 % (9-44) Monocytes % 4 % (0-8) Neutrophils # (Manual) 9.3 TH/MM3 (1.8-7.7) Differential Comment FINAL DIFF MANUAL Toxic Granulation (NORMAL) Dohle Bodies PRESENT (NONE SEEN) Platelet Estimate LOW (NORMAL) Platelet Morphology Comment NORMAL (NORMAL) Blood Urea Nitrogen 22 MG/DL (7-18) Creatinine 0.81 MG/DL (0.60-1.30) Random Glucose 145 MG/DL (74-106) Total Protein 5.6 GM/DL (6.4-8.2) Albumin 1.4 GM/DL (3.4-5.0) Calcium Level 8.0 MG/DL (8.5-10.1) Magnesium Level 1.7 MG/DL (1.5-2.5) Alkaline Phosphatase 52 U/L (45-117) Aspartate Amino Transf (AST/SGOT) 66 U/L (15-37) Alanine Aminotransferase (ALT/SGPT) 53 U/L (12-78) Total Bilirubin 2.9 MG/DL (0.2-1.0) Sodium Level 140 MEQ/L (136-145) Potassium Level 3.7 MEQ/L (3.5-5.1) Chloride Level 106 MEQ/L (98-107) Carbon Dioxide Level 25.5 MEQ/L (21.0-32.0) Anion Gap 9 MEQ/L (5-15) Estimat Glomerular Filtration Rate 96 ML/MIN (>89) Ammonia 74 MCMOL/L (11-32) Test 07/30/17 04:30 07/30/17 07:50 07/31/17 04:07 07/31/17 08:20 White Blood Count 7.9 TH/MM3 (4.0-11.0) 9.6 TH/MM3 (4.0-11.0) Red Blood Count 3.06 MIL/MM3 (4.50-5.90) 3.26 MIL/MM3 (4.50-5.90) Hemoglobin 11.1 GM/DL (13.0-17.0) 11.5 GM/DL (13.0-17.0) Hematocrit 30.8 % (39.0-51.0) 33.0 % (39.0-51.0) Mean Corpuscular Volume 100.8 FL (80.0-100.0) 101.3 FL (80.0-100.0) Mean Corpuscular Hemoglobin 36.4 PG (27.0-34.0) 35.4 PG (27.0-34.0) Mean Corpuscular Hemoglobin Concent 36.1 % (32.0-36.0) 35.0 % (32.0-36.0) Red Cell Distribution Width 15.9 % (11.6-17.2) 15.7 % (11.6-17.2) Platelet Count 50 TH/MM3 (150-450) 71 TH/MM3 (150-450) Mean Platelet Volume 8.3 FL (7.0-11.0) 8.4 FL (7.0-11.0) Neutrophils (%) (Auto) 84.7 % (16.0-70.0) 82.6 % (16.0-70.0) Lymphocytes (%) (Auto) 6.2 % (9.0-44.0) 7.2 % (9.0-44.0) Monocytes (%) (Auto) 9.0 % (0.0-8.0) 10.2 % (0.0-8.0) Eosinophils (%) (Auto) 0.0 % (0.0-4.0) 0.0 % (0.0-4.0) Basophils (%) (Auto) 0.1 % (0.0-2.0) 0.0 % (0.0-2.0) Neutrophils # (Auto) 6.7 TH/MM3 (1.8-7.7) 7.9 TH/MM3 (1.8-7.7) Lymphocytes # (Auto) 0.5 TH/MM3 (1.0-4.8) 0.7 TH/MM3 (1.0-4.8) Monocytes # (Auto) 0.7 TH/MM3 (0-0.9) 1.0 TH/MM3 (0-0.9) Eosinophils # (Auto) 0.0 TH/MM3 (0-0.4) 0.0 TH/MM3 (0-0.4) Basophils # (Auto) 0.0 TH/MM3 (0-0.2) 0.0 TH/MM3 (0-0.2) CBC Comment AUTO DIFF AUTO DIFF Differential Total Cells Counted 100 Neutrophils % (Manual) 73 % (16-70) Band Neutrophils % 15 % (0-6) Lymphocytes % 3 % (9-44) Monocytes % 9 % (0-8) Neutrophils # (Manual) 7.0 TH/MM3 (1.8-7.7) Differential Comment FINAL DIFF MANUAL AUTO DIFF CONFIRMED Platelet Estimate LOW (NORMAL) LOW (NORMAL) Platelet Morphology Comment NORMAL (NORMAL) NORMAL (NORMAL) Blood Urea Nitrogen 34 MG/DL (7-18) 42 MG/DL (7-18) Creatinine 0.89 MG/DL (0.60-1.30) 0.95 MG/DL (0.60-1.30) Random Glucose 150 MG/DL (74-106) 132 MG/DL (74-106) Calcium Level 8.0 MG/DL (8.5-10.1) 8.6 MG/DL (8.5-10.1) Phosphorus Level 2.8 MG/DL (2.5-4.9) 3.3 MG/DL (2.5-4.9) Magnesium Level 1.9 MG/DL (1.5-2.5) 2.1 MG/DL (1.5-2.5) Sodium Level 140 MEQ/L (136-145) 139 MEQ/L (136-145) Potassium Level 4.1 MEQ/L (3.5-5.1) 4.9 MEQ/L (3.5-5.1) Chloride Level 103 MEQ/L (98-107) 102 MEQ/L (98-107) Carbon Dioxide Level 30.6 MEQ/L (21.0-32.0) 30.9 MEQ/L (21.0-32.0) Anion Gap 6 MEQ/L (5-15) 6 MEQ/L (5-15) Estimat Glomerular Filtration Rate 86 ML/MIN (>89) 80 ML/MIN (>89) Ammonia 70 MCMOL/L (11-32) 114 MCMOL/L (11-32) Free Thyroxine 1.07 NG/DL (0.76-1.46) Free Triiodothyronine (T3) pg/dL 1.22 PG/ML (2.18-3.98) Thyroid Stimulating Hormone 3rd Gen 1.890 uIU/ML (0.358-3.740) Toxic Granulation (NORMAL) Total Protein 6.3 GM/DL (6.4-8.2) Albumin 1.6 GM/DL (3.4-5.0) Alkaline Phosphatase 58 U/L (45-117) Aspartate Amino Transf (AST/SGOT) 108 U/L (15-37) Alanine Aminotransferase (ALT/SGPT) 85 U/L (12-78) Total Bilirubin 2.4 MG/DL (0.2-1.0) Test 07/31/17 08:45 Urine Color DARK-YELLOW (YELLW/STRAW) Urine Turbidity CLEAR (CLEAR) Urine pH 6.0 (5.0-8.5) Urine Specific [place] 1.026 (1.002-1.035) Urine Protein TRACE mg/dL (NEG-TRACE) Urine Glucose (UA) NEG mg/dL (NEG) Urine Ketones TRACE mg/dL (NEG) Urine Occult Blood SMALL (NEG) Urine Nitrite NEG (NEG) Urine Bilirubin NEG (NEG) Urine Urobilinogen 8.0 MG/DL (LESS THAN Urine Leukocyte Esterase MOD (NEG) Urine RBC 21 /hpf (0-3) Urine WBC 13 /hpf (0-5) Urine Squamous Epithelial Cells <1 /hpf (0-5) Urine Bacteria RARE /hpf (NONE) Urine Hyaline Casts 42 /lpf (RARE) Urine Mucus FEW /lpf (OCC) Microscopic Urinalysis Comment CATH-CULTURE IND . Result Diagram: 07/31/17 0407 07/31/17 0407 Microbiology Microbiology Date/Time Source Procedure Growth Status 07/31/17 08:45 Urine Catheterized Urine Urine Culture Pending Received Imaging Last 72 hours Impressions Chest X-Ray 07/31/17 0000 Signed Impressions: Service Date/Time: , July 31, 2017 08:01 - CONCLUSION: 1. Stable appearance of the left subclavian central venous catheter which again is noted to have an abnormal course. On the CT this was noted to terminate within the region of the coronary sinus. 2. New abnormal opacity at the left lung base which may represent infiltrate and/or effusion. This could represent pneumonia. Urbano Thibodeaux MD . Procedures 07/26/2017: Intubation 07/26/2017: NGT placed 07/26/2017: Left subclavian central line placement . Patient/Family Conference Present at Family Conference: Spoke with patient's brother, Gerhard via telephone. . Family Conference Location: Telephone Issues Discussed: * Palliative care role, purpose, approach * Patient/family understanding of the current medical problems * Patient/family understanding of prognosis * Patients goals of care as best understood from advance directives and/or conversations and/or values * Current medical treatment options and benefits/burdens of those options * Likely scenarios comparing ongoing aggressive care with a transition to comfort measures only * Questions answered to the best of my ability * Palliative care contact information provided . Assessment and Plan Disease Oriented Problem List: (1) Hyperkalemia (2) Symptomatic bradycardia (3) Sepsis (4) Acute encephalopathy Symptom Scale: (1) Encephalopathy (2) Dyspnea (3) Pain Pertinent Non-Medical Issues Psychosocial:Per patient's brother (Gerhard). Patient is originally from [place]. He has 2 older brothers. Mikey lives in [place] and is apparently in poor health. Gerhard lives in [place]. The patient worked as a truck assembler. Apparently, the patient has been incarcerated since 1992. Spiritual: Pending further discussion with patient's family Legal: Per [place] statutes, in the absence of written advanced directives healthcare proxy decision-making falls to the patient's 2 brothers. Gerhard states he is the designated health care surrogate; he states the [facility] has documentation that designates him as the healthcare surrogate decision maker. Ethical issues impacting care: No known ethical issues impacting care at this time. . Important Contacts Gerhard Hollis, brother: [phone] . Prognosis Patient is a 66-year-old inmate who was found unresponsive in his cell. CPR was initiated although it was later determined the patient had a DNR in place. Patient is currently sedated and intubated on mechanical ventilator, being transcutaneously paced. Infectious disease following as well. Patient with severe encephalopathy. The patient may not survive this hospitalization; if he does survive this hospitalization he will likely be at risk for ongoing decline and complications. . Code Status: Full Code Plan * FULL CODE * Decision-making: Per [place] statutes, in the absence of written advanced directives healthcare proxy decision-making falls to the patient's 2 brothers. Gerhard states he is the designated health care surrogate; he states the [facility] has documentation that designates him as the healthcare surrogate decision maker. * Goals: Patient's brother, Gerhard, states he has spoken with his family, and they are all leaning toward comfort focused care. He states he has had conversations with his brother about this previously, and his brother would not want to be alive artificially for any length of time. He confirms the patient was a DNR, but states he feels it is understandable that his brother would ask for help during an acute event such as the one he experienced on 07/26/2017. He would like to think about CODE STATUS and whether or not they want further escalation of care. * Palliative care contact information was provided to the patient's brother. * Symptom management - encephalopathy: EEG on 07/28/17 showing encephalopathy possibly secondary to sepsis/hyperammonemia/hypotension/hypoxia. Apparently patient has some confusion at baseline, questionable underlying dementia. Follow-up EEG on 07/30/2017 showing severe encephalopathy with no seizure activity. * Symptom management - dyspnea: Patient remains intubated on mechanical ventilator. Follow-up chest x-ray this morning showed a new abnormal opacity at the left lung base which may represent infiltrate and/or effusion, could represent pneumonia. * Symptom management - pain: Patient currently on fentanyl. Showing no nonverbal signs or symptoms of pain on examination. We'll continue to monitor and make recommendations as indicated. * Palliative care will continue to follow this patient throughout his hospitalization to establish trust, assist with symptom management and clarification of medical treatment goals. . . Thank you for the opportunity to participate in the care of Mr. Hollis. Attestation To help prompt me to consider important information that might be impacting today's encounter and assessment, information from prior notes written by myself or my colleagues may have been "brought forward" into today's note. My signature on this note, however, is an attestation that I personally performed the exam, history, and/or decision-making noted today, and, unless otherwise indicated, the interactions with patient, family, and staff as well as the review of records all occurred today. I also attest that the listed assessment and stated plan reflect my best clinical judgment today based on the combination of historical information, prior notes, and today's exam/ interactions. When time spent is documented, it refers only to time spent today by the signer, or if indicated, combined time spent today by collaborating physician/nurse practitioner. . Elizabeth Herrmann Jul 31, 2017 10:54 am
[2017-07-31 12:55] LABS: BLOOD GAS BASE EXCESS 3.3 mmol/L (-2-2); BLOOD GAS CARBOXYHEMOGLOBIN 1.9 % (0-4); BLOOD GAS HCO3 28 mmol/L (22-26); BLOOD GAS METHEMOGLOBIN 1.1 % (0-2); BLOOD GAS O2 HGB SATURATION 95 % (90-100); BLOOD GAS OXYGEN CONTENT 16.7 Vol % (12.0-20.0); BLOOD GAS PCO2 51 mmHg (38-42); BLOOD GAS PO2 111 mmHg (61-120); BLOOD GAS TOTAL HGB 12.3 G/DL (12.0-16.0); TEMP CORR TO 98.6
[2017-07-31 12:58] LABS: CRITICAL VALUE YES; OXYGEN DEVICE VENTILATOR; VENT SETTINGS 500/16/+5/0.9
[2017-07-31 12:59] LABS: DRAW SITE RT RADIAL; FIO2 40 %; NUMBER OF ARTERIAL PUNCTURES 1; STAT NO; ULNAR PULSE PRESENT
--- NOTE | 2017-07-31 14:57 | HHI.HCPN ---
Spoke with Ms. Hinton (certified medical technician assistant) at [facility] where Mr. Hollis is incarcerated. She provided contact information for patient's brother, Gerhard Hollis [phone]. She states medical team is free to speak with him and provide him information. Further reports custodial will not partake in medical decisions, family is free to make decisions. Spoke with Gerhard Hollis. Confirms he is a brother to the patient. Reports they have another older brother, Mikey, who is in poor health. Gerhard reports he remains in contact with him. Spoke at length with Gerhard and his , introduced palliative care role here in the hospital, discussed health care proxy role, and answered questions and concerns to the best of my ability. Gerhard confirms he wishes to serve as health care proxy decision maker. States he lives out of state but is available by phone anytime. Gerhard and very appreciative of contact and information. Informed them palliative care LIVE STUDY MANAGER will be in contact to further provide medical update and address goals of care. Palliative care number provided. Palliative care will continue to follow throughout hospitalization. Марина Garza, SUPERVISOR DIE CASTING Jul 31, 2017 14:57
[2017-08-01] VITALS (25 sets, daily range): BP systolic 77–142; BP diastolic 49–83; PULSE 81–150; RESP 17–26; TEMP 98.3–99.9; O2SAT 95–100
[2017-08-01] MEDS: MEROPENEM INJ 1,000 MG in SODIUM CHLORIDE 0.9% INJ 100 ML IV SCH ×3 (00:10→18:42)
[2017-08-01] MEDS: HYDROCORTISONE SOD SUCCINATE 100 MG VIAL IV PUSH SCH ×2 (00:53→15:39)
[2017-08-01] MEDS: LACTULOSE SYRUP 20 GM/30 ML CUP PO SCH ×4 (00:53→21:21)
[2017-08-01] MEDS: LINEZOLID 600 MG PREMIX 300 ML IV SCH (00:54)
[2017-08-01] MEDS: CHLORHEXIDINE GLUCONATE 2 % 1 PACK (2 CLOTHS) TOP SCH (00:54)
[2017-08-01] MEDS: fentaNYL DRIP 250 ML IV PRN (00:54)
[2017-08-01] MEDS: INSULIN NovoLIN REGULAR SUPPLEMENTAL SCALE SQ SCH ×6 (03:00→20:00)
[2017-08-01 03:43] LABS: AUTOMATED NEUTROPHIL # 12.7 TH/MM3 (1.8-7.7); BASOPHIL # 0.1 TH/MM3 (0-0.2); BASOPHIL % 0.5 % (0.0-2.0); HEMATOCRIT 35.4 % (39.0-51.0); LYMPH % 5.3 % (9.0-44.0); LYMPHOCYTE # 0.8 TH/MM3 (1.0-4.8); MEAN CELL VOLUME 101.1 FL (80.0-100.0); MEAN CORPUSCULAR HEMOGLOBIN 35.4 PG (27.0-34.0); MONO % 11.9 % (0.0-8.0); NEUT % 82.3 % (16.0-70.0); PLATELET COUNT 103 TH/MM3 (150-450); RED CELL DISTRIBUTION WIDTH 15.4 % (11.6-17.2); WHITE BLOOD COUNT 15.5 TH/MM3 (4.0-11.0)
[2017-08-01 03:53] LABS: HEMO FLAGS AUTO DIFF
[2017-08-01 04:18] LABS: BANDS 6 % (0-6); METAMYELOCYTES 1 % (0-1); NEUTROPHIL # MANUAL DIFF 14.1 TH/MM3 (1.8-7.7); POLYS (SEG NEUTROPHILS) 84 % (16-70); SCAN/DIFF FINAL DIFF MANUAL; WBC DIFF SAMPLE 100
[2017-08-01 04:19] LABS: PLATELET ESTIMATE SMEAR LOW (NORMAL); PLATELET MORPHOLOGY NORMAL (NORMAL); TOXIC GRANULATION 1+ (NORMAL)
[2017-08-01 04:22] LABS: ALKALINE PHOSPHATASE 82 U/L (45-117); ALT (GPT) 88 U/L (12-78); ANION GAP 5 MEQ/L (5-15); AST (GOT) 110 U/L (15-37); BICARBONATE 30.7 MEQ/L (21.0-32.0); BLOOD UREA NITROGEN 62 MG/DL (7-18); CHLORIDE 102 MEQ/L (98-107); GLOMERULAR FILTRATION RATE 54 ML/MIN (>89); MAGNESIUM 2.4 MG/DL (1.5-2.5); POTASSIUM 5.5 MEQ/L (3.5-5.1); SODIUM (NA) 138 MEQ/L (136-145); TOTAL BILIRUBIN ADULT 3.6 MG/DL (0.2-1.0)
[2017-08-01] MEDS ORDERED: SODIUM POLYSTYRENE SULFONATE SUSP 15 GM/60 ML CUP PO ONE (08:00)
[2017-08-01] MEDS ORDERED: SODIUM BICARBONATE 8.4% SOLN 50 MEQ/50 ML VIAL SLOW IVP ONE (08:00)
[2017-08-01] MEDS ORDERED: CALCIUM GLUCONATE 10% 1 GM/10 ML VIAL SLOW IVP ONE (08:00)
[2017-08-01] MEDS ORDERED: DEXTROSE 50% IN WATER 50 ML VIAL(D50) IV PUSH ONE (08:00)
[2017-08-01] MEDS ORDERED: INSULIN HUMAN REGULAR 1,000 UNITS/10 ML VIAL IV PUSH ONE (08:00)
--- NOTE | 2017-08-01 08:12 | HHI.CCPN ---
Subjective Remarks/Hospital Course The patient is a 66-year-old male with past medical history of COPD, hepatitis C , atrial fibrillation who presented to [facility] ED after he was found down in his cell at a local [facility]. CPR was initiated prior to his apparent DNR being discovered. EMS arrived and they were able to get him back with transcutaneous pacing, however, during that time the patient wished to have everything done. He became unresponsive and was intubated in the field and he has been a transcutaneously paced. On arrival to the emergency room, the patient was bradycardic and hypotensive. He was seen by Dr. Paz and started on dopamine drip currently at 10 mcg. The patient was given Digibind empirically. however, his Digoxin level came back subtherapeutic at 0.3. His laboratory data significant for hyperkalemia with potassium level 6.7, creatinine of 1.21. The patient scheduled to receive 10 units IV insulin D50, calcium, sodium bicarb and kayexalate for treatment of his hyperkalemia. EKG showed junctional rhythm. Intraventricular conduction delay with a rate of 33 beats per minute. The chest x-ray in the ER showed ET tube approximately 1.5 cm above the melinda. No acute radiographic cardiopulmonary abnormalities identified. His troponin level was less than 0.02 with total CK of 80. The rest of the history is limited as the patient is intubated. 10: Patient remains sedated and intubated. On Dopamine 12 mics, Levophed 11 mics. K 5.5 this morning. Afebrile, transcutaneously paced. 10/ No events overnight. Off sedation Levophed down 2 mics, Dopamine [address] brain yesterday no acute findings. 07/29 Patient remains intubated on no sedation. Off Levophed, dopamine down 3 mics. Afebrile. 10 No events overnight. Patient is off all pressors sedated with Fentanyl and intubated. Afebrile. 07/31 Patient remains intubated and sedated with Fentanyl. Afebrile. Repeat EEG yesterday showed severe encephalopathy with no seizure activity. Subjective 08/01: Currently afebrile. Tolerating tube feeds at goal. 7 BMs overnight. Patient is currently on 200 g an hour of fentanyl. Lurching out of bed but not following commands. Objective Vital Signs Date Time Temp Pulse Resp B/P (MAP) Pulse Ox O2 Delivery O2 Flow Rate FiO2 08/01/17 07:12 95 40 08/01/17 06:00 87 08/01/17 04:00 98.3 18 142/79 (100) Intake and Output 08/01/17 08/01/17 08/02/17 08:00 16:00 00:00 Intake Total 580 ml Output Total 750 ml Balance -170 ml Result Diagram: 08/01/17 0320 08/01/17 0320 Other Results Microbiology Date/Time Source Procedure Growth Status 07/27/17 12:18 Blood Peripheral Aerobic Blood Culture - Preliminary NO GROWTH IN 4 DAYS Resulted 07/27/17 12:18 Blood Peripheral Anaerobic Blood Culture - Preliminary NO GROWTH IN 4 DAYS Resulted 07/28/17 04:00 Sputum Endotracheal Gram Stain - Final Complete 07/28/17 04:00 Sputum Culture - Final Escherichia Coli Esbl Positive Pseudomonas Aeruginosa Complete 07/31/17 08:45 Urine Catheterized Urine Urine Culture Pending Received Imaging Last Impressions Chest X-Ray 07/31/17 0000 Signed Impressions: Service Date/Time: July 08:01 - CONCLUSION: 1. Stable appearance of the left subclavian central venous catheter which again is noted to have an abnormal course. On the CT this was noted to terminate within the region of the coronary sinus. 2. New abnormal opacity at the left lung base which may represent infiltrate and/or effusion. This could represent pneumonia. Urbano Thibodeaux MD Abdomen Ultrasound 07/28/17 0000 Signed Impressions: Service Date/Time: Friday, July 28, 2017 08:20 - CONCLUSION: 1. Trace ascites Willian Parks MD Liver Ultrasound 07/27/17 0000 Signed Impressions: Service Date/Time: Thursday, July 27, 2017 12:06 - CONCLUSION: Cirrhosis of liver with surrounding ascites and possible occlusion of the portal vein. Gallstones. Rafael Breaux MD Chest CT 07/27/17 0000 Signed Impressions: Service Date/Time: Thursday, July 27, 2017 11:09 - CONCLUSION: 1. There is a left-sided SVC present with a central line identified within the lumen and terminating within the region of the coronary sinus. 2. Moderate ascites with cirrhotic changes of the liver and multiple varices consistent with portal hypertension. 3. Probably positioned endotracheal tube and orogastric tube. 4. Moderate to severe centrilobular emphysematous change. Monika Sims MD Head CT 07/26/17 0000 Signed Impressions: Service Date/Time: Thursday, July 27, 2017 11:06 - CONCLUSION: 1. No acute intracranial abnormality. 2. There is a small amount of fluid in the posterior aspect of both maxillary sinuses. Jayden Olvera MD Objective Remarks GENERAL: 66-year-old male, currently orotracheally intubated SKIN: Warm and dry. Multiple ecchymotic spots bilateral lower extremities HEAD: Normocephalic. EYES: Pupils are around 1-2 mm bilaterally and minimally reactive. Slight scleral icterus. No injection or drainage. NECK: Supple, trachea midline. No JVD or lymphadenopathy.Intubated. CARDIOVASCULAR: Regular rate and rhythm no S4. Currently without murmurs, gallops, or rubs. RESPIRATORY: Coarse crackles appreciated bilateral lower lobes left greater than right. No wheezing GASTROINTESTINAL: Abdomen soft, non-tender, nondistended. Hypoactive bowel sounds appreciated MUSCULOSKELETAL: No significant peripheral edema. Neuro: Cranial nerves II through XII appear grossly intact. Positive gag. Positive corneal reflex. Moving outward from bed and moving all 4 extremity spontaneously but not to command. A/P Assessment and Plan Neuro/Psych: Toxic metabolic encephalopathy secondary to anoxia/hyperammonia On Fentanyl infusion 200 g an hour for sedation. Goal RASS -2 Daily sedation vacation. Monitor neuro status . Neuro/Dr. Marte 07/27: CT brain: No acute findings. 07/28: EEG : Encephalopathy, repeat EEG 07/30: Severe encephalopathy, no seizure activity UDS: + Benzos. Pulm: Acute respiratory failure History of COPD/oxygen dependent 2 L at home PRVC 18/550/0.9/5/40 Ventilator bundle Albuterol ipratropium aerosols every 6 hours with albuterol aerosols every 2 hours as needed for dyspnea Spontaneous breathing trials as clinically indicated Continue with vent support and maintain sats >92%. CT chest: cirrhotic changes of the liver and multiple varices consistent with portal hypertension. Moderate to severe centrilobular emphysematous change. Continue records and 50 mg IV twice a day. Wean as tolerated At home on levobunolol aerosols every 4-6 hours with ciclesonide inhaled steroid daily CV: Sinus asad arrest. History of hypertension History of atrial fibrillation currently normal sinus rhythm Systolic heart failure likely chronic Monitor HR and BP maintain MAP >65 mmHg. s/p Digibind empirically in ED, Digoxin level: 0.3. Cards has following- Dr. Paz. No indication for pacemaker placement Off dobutamine and norepinephrine drips Echo showed EF 40-45% Holding home medications digoxin 0.125 mg daily, diltiazem 120 mg daily and propranolol 60 mg twice a day Renal/: Monitor renal function, I/O's, electrolytes replacement as needed per ICU electrolyte protocol. GI: Hyperammonia - 11/08/07/31 Severe protein calorie malnutrition albumin 1.7 History of hepatitis C Lansoprazole 30mg daily tube feeds- Glucerna 1.5 @ 50ml/hr per nutrition's recommendation Monitor LFT's, US liver: Cirrhosis of liver with trace ascites and possible occlusion of the portal vein. Gallstones. Check portal vein for thrombosis today with ultrasound Hepatitis profile pending Continue rifaximin 550 mill grams twice a day and lactulose 30 cc every 6 hours. Recheck ammonia level in a.m. Holding Lasix 20 mg daily and Aldactone 50 mill grams twice a day ID: VRE Escherichia coli ESBL positive UTI Escherichia coli ESBL positive/Pseudomonas pneumonia On meropenem and Nasalide, monitor for signs of infections ( Fever, WBC) ID is following. Check sputum cx, UA with cx if indicated 07/27 Urine cx: E.coli ESBL, VRE 07/27 BC: NGTD, 07/28 sputum: Pseudomonas, ESBL, E.coli Heme: Leukocytosis Macrocytic anemia Thrombocytopenia Monitor CBC following trends Endo: On Medium Novulin R SSI with accuchecks for glycemic control TSH: 1.89, FT4: 1.07, FT3: 1.22 FEN: Hyperkalemia Receiving D50/insulin, calcium gluconate, sodium bicarbonate and exit 15 g now. Recheck potassium in 3 hours. Lines: Right Rad Art line, Left subclavian CVP placed 07/26 to be discontinued today GI prophylaxis- Lansoprazole 30 mg daily DVT prophylaxis- SCD's, not on chemical AC prophylaxis due to thrombocytopenia Consult palliative care to asses with goals of care Critical Care: The total critical care time was 30 minutes. Time to perform other separately billable procedures was not included in the critical care time. Joseph Lopez MD Aug 01, 2017 08:12
[2017-08-01] MEDS: RIFAXIMIN 550 MG TAB PO SCH ×2 (08:30→21:21)
[2017-08-01] MEDS: LANSOPRAZOLE SOLUTAB 30 MG TAB NG SCH (08:31)
[2017-08-01] MEDS ORDERED: CALCIUM GLUCONATE INJ 1 GM in SODIUM CHLORIDE 0.9% INJ 100 ML IV ONE (09:00)
[2017-08-01] MEDS ORDERED: RESP: ALBUTEROL 2.5 MG/3 ML NEB (PRN) NEB (10:00)
[2017-08-01] MEDS: RESP: ALBUTEROL 2.5 MG/IPRATROPIUM 0.5 MG NEB (SCH) NEB ×3 (10:02→19:20)
--- NOTE | 2017-08-01 10:11 | HHI.IDPN ---
Subjective Subjective Remarks Patient is a 66-year-old inmate brought into the hospital after he was found down in his cell. CPR was initially started, however he was found to be DNR, so it was stopped, but the patient had spontaneous return of his respirations. He was bradycardic and transcutaneous pacing was started and the patient brought into the hospital. While in route to the hospital, patient apparently stated that he wished to have everything done. He went into respiratory arrest , and intubated in the field. In the emergency room he was hypotensive, and bradycardic. Patient was seen by a hot metal mixer operator helper, and his hemodynamics and cardiac status stabilized. Patient currently is off pressors. He remains on the vent, and on sedation. His urinalysis showed some pyuria, and the culture is growing Escherichia coli ESBL positive and VRE. His blood cultures are negative so far. His initial chest x-ray did not show any infiltrates. Patient also had elevated LFTs, and there is history of liver cirrhosis. He is afebrile. His WBC was elevated, and it's down to normal. Infectious disease consultation has been requested to make antibiotic recommendation. Notes reviewed D/W RN Temps ok On the vent On fenatnyl, awake, not following commands Having diarrhea Getting lactulose for elevated NH3 WBC higher today Repeat UA better, UC pending CXR with new L base opacity BP ok Monitor shows afib RVR Antibiotics Meropenem Zyvox Other meds reviewed Lines LSC TLC Past Medical History Atrial fibrillation. Positive PPD with treatment. Hepatitis C. COPD. Lower extremity edema. Pancytopenia. Liver cirrhosis Allergies: Coded Allergies: No Known Allergies (Unverified , 07/26/17) Objective . Vital Signs Date Time Temp Pulse Resp B/P (MAP) Pulse Ox O2 Delivery O2 Flow Rate FiO2 08/01/17 08:00 40 08/01/17 07:12 95 40 08/01/17 06:00 87 08/01/17 04:19 96 40 08/01/17 04:00 81 08/01/17 04:00 98.3 89 18 142/79 (100) 97 08/01/17 04:00 40 08/01/17 02:00 81 08/01/17 01:00 95 40 08/01/17 00:00 81 08/01/17 00:00 98.3 89 18 133/83 (100) 97 08/01/17 00:00 40 07/31/17 22:10 95 40 07/31/17 22:00 81 07/31/17 20:00 98.3 89 18 115/76 (89) 97 07/31/17 20:00 40 07/31/17 20:00 89 07/31/17 19:15 92 40 07/31/17 19:00 98 18 130/79 (96) 92 07/31/17 18:30 83 18 119/72 (88) 96 07/31/17 18:00 80 07/31/17 18:00 98.3 80 18 123/76 (92) 97 07/31/17 17:31 88 18 119/83 (95) 96 07/31/17 17:00 91 18 104/72 (83) 96 07/31/17 16:31 86 18 105/71 (82) 96 07/31/17 16:01 86 18 149/81 (103) 99 07/31/17 16:00 89 07/31/17 16:00 89 25 96 07/31/17 16:00 40 07/31/17 15:30 92 14 118/70 (86) 96 07/31/17 15:17 96 40 07/31/17 15:00 80 16 129/74 (92) 96 07/31/17 14:31 85 16 142/69 (93) 96 07/31/17 14:00 74 07/31/17 14:00 74 16 141/74 (96) 95 07/31/17 13:30 88 33 128/83 (98) 96 07/31/17 13:00 91 16 131/75 (93) 97 07/31/17 12:00 40 07/31/17 12:00 86 07/31/17 12:00 98.8 86 16 147/74 (98) 96 07/31/17 11:35 97 40 07/31/17 11:00 77 16 136/75 (95) 97 . Laboratory Tests Test 07/31/17 04:07 08/01/17 03:20 White Blood Count 9.6 TH/MM3 15.5 TH/MM3 Red Blood Count 3.26 MIL/MM3 3.50 MIL/MM3 Hemoglobin 11.5 GM/DL 12.4 GM/DL Hematocrit 33.0 % 35.4 % Mean Corpuscular Volume 101.3 FL 101.1 FL Mean Corpuscular Hemoglobin 35.4 PG 35.4 PG Mean Corpuscular Hemoglobin Concent 35.0 % 35.0 % Red Cell Distribution Width 15.7 % 15.4 % Platelet Count 71 TH/MM3 103 TH/MM3 Mean Platelet Volume 8.4 FL 7.4 FL Neutrophils (%) (Auto) 82.6 % 82.3 % Lymphocytes (%) (Auto) 7.2 % 5.3 % Monocytes (%) (Auto) 10.2 % 11.9 % Eosinophils (%) (Auto) 0.0 % 0.0 % Basophils (%) (Auto) 0.0 % 0.5 % Neutrophils # (Auto) 7.9 TH/MM3 12.7 TH/MM3 Lymphocytes # (Auto) 0.7 TH/MM3 0.8 TH/MM3 Monocytes # (Auto) 1.0 TH/MM3 1.8 TH/MM3 Eosinophils # (Auto) 0.0 TH/MM3 0.0 TH/MM3 Basophils # (Auto) 0.0 TH/MM3 0.1 TH/MM3 CBC Comment AUTO DIFF AUTO DIFF Differential Comment AUTO DIFF CONFIRMED FINAL DIFF MANUAL Toxic Granulation 1+ Platelet Estimate LOW LOW Platelet Morphology Comment NORMAL NORMAL Differential Total Cells Counted 100 Neutrophils % (Manual) 84 % Band Neutrophils % 6 % Lymphocytes % 4 % Monocytes % 5 % Neutrophils # (Manual) 14.1 TH/MM3 Metamyelocytes 1 % Laboratory Tests Test 07/31/17 04:07 07/31/17 08:20 08/01/17 03:20 Blood Urea Nitrogen 42 MG/DL 62 MG/DL Creatinine 0.95 MG/DL 1.34 MG/DL Random Glucose 132 MG/DL 135 MG/DL Total Protein 6.3 GM/DL 6.4 GM/DL Albumin 1.6 GM/DL 1.7 GM/DL Calcium Level 8.6 MG/DL 8.6 MG/DL Phosphorus Level 3.3 MG/DL 3.9 MG/DL Magnesium Level 2.1 MG/DL 2.4 MG/DL Alkaline Phosphatase 58 U/L 82 U/L Aspartate Amino Transf (AST/SGOT) 108 U/L 110 U/L Alanine Aminotransferase (ALT/SGPT) 85 U/L 88 U/L Total Bilirubin 2.4 MG/DL 3.6 MG/DL Sodium Level 139 MEQ/L 138 MEQ/L Potassium Level 4.9 MEQ/L 5.5 MEQ/L Chloride Level 102 MEQ/L 102 MEQ/L Carbon Dioxide Level 30.9 MEQ/L 30.7 MEQ/L Anion Gap 6 MEQ/L 5 MEQ/L Estimat Glomerular Filtration Rate 80 ML/MIN 54 ML/MIN Ammonia 114 MCMOL/L Microbiology Date/Time Source Procedure Growth Status 07/31/17 08:45 Urine Catheterized Urine Urine Culture Pending Received Imaging Last 48 hours Impressions Chest X-Ray 07/31/17 0000 Signed Impressions: Service Date/Time: July 08:01 - CONCLUSION: 1. Stable appearance of the left subclavian central venous catheter which again is noted to have an abnormal course. On the CT this was noted to terminate within the region of the coronary sinus. 2. New abnormal opacity at the left lung base which may represent infiltrate and/or effusion. This could represent pneumonia. Urbano Thibodeaux MD Abdomen Ultrasound 07/28/17 0000 Signed Impressions: Service Date/Time: Friday, July 28, 2017 08:20 - CONCLUSION: 1. Trace ascites Willian Parks MD Liver Ultrasound 07/27/17 0000 Signed Impressions: Service Date/Time: Thursday, July 27, 2017 12:06 - CONCLUSION: Cirrhosis of liver with surrounding ascites and possible occlusion of the portal vein. Gallstones. Rafael Breaux MD Chest CT 07/27/17 0000 Signed Impressions: Service Date/Time: Thursday, July 27, 2017 11:09 - CONCLUSION: 1. There is a left-sided SVC present with a central line identified within the lumen and terminating within the region of the coronary sinus. 2. Moderate ascites with cirrhotic changes of the liver and multiple varices consistent with portal hypertension. 3. Probably positioned endotracheal tube and orogastric tube. 4. Moderate to severe centrilobular emphysematous change. Monika Sims MD Chest X-Ray 07/26/17 1404 Signed Impressions: Service Date/Time: Wednesday, July 26, 2017 14:49 - CONCLUSION: 1. ETT approximately 1.5 cm above the melinda. NGT in the stomach. 2. No acute radiographic cardiopulmonary abnormality. Jim Mckenna MD Head CT 07/26/17 0000 Signed Impressions: Service Date/Time: Thursday, July 27, 2017 11:06 - CONCLUSION: 1. No acute intracranial abnormality. 2. There is a small amount of fluid in the posterior aspect of both maxillary sinuses. Jayden Olvera MD Physical Exam GENERAL: Awake, not following commands, not focusing, on the vent SKIN: Cool and dry. Has purpuric lesions on his upper chest. HEAD: Atraumatic. Normocephalic. No temporal wasting, or tenderness. EYES: Marne conjunctiva. No petechia or hemorrhage. Pupils equal, round pinpoint. Mild scleral icterus. No injection or drainage. EARS, NOSE AND THROAT: Nose without bleeding or purulent nasal discharge. Endotracheal tube in mouth NECK: Trachea midline. Supple and not tender, no meningeal signs CARDIOVASCULAR: Regular rate and rhythm. Soft heart sounds. No murmurs, rubs or gallops heard RESPIRATORY: Clear to auscultation. Breath sounds equal bilaterally. No rales , wheezing or rhonchi. Decreased BS at bases. ABDOMEN: Soft, mildly distended, no reaction to palpation. Bowel sounds present and hypoactive. EXTREMITIES: No clubbing, cyanosis. Has mild L pedal edema. Both hands edematous. Cool, no mottling NEUROLOGICAL: Awake, not following. PSYCHIATRIC: Unable to assess LINE: No evidence of infection : Hernandez in place, urine looks clear Assessment & Plan Remarks IMPRESSION UTI, C/S with E coli ESBL+ and VRE S/P sinus asad arrest Respiratory failure COPD findings seen on CT, has E coli ESBL and PSAE in sputum C/S - ?HCAP - CXR now with new opacity - G/S not impressive for presence of WBC Liver cirrhosis, portal vein thrombosis Known Hep C Hx (+) PPD, per record treated - no evidence of TB on CT Leukocytosis Diarrhea, R/O C diff RECOMMENDATION Continue Merem Continue Zyvox - follow CBC - change to per FT Follow new C/S Check stool for C diff - add Lactinex Follow CBC Monitor progress Weaning as tolerated D/W RN Dr Maggy Berrios available if with any ID issue or question Monse Thurman MD Aug 01, 2017 10:11
[2017-08-01] MEDS: PROPOFOL 1000 MG/100 ML INJ 100 ML IV PRN ×2 (10:29→20:20)
[2017-08-01] MEDS ORDERED: DILTIAZEM HCL 25 MG/5 ML VIAL IV PUSH ONE (10:30)
[2017-08-01] MEDS ORDERED: TERBUTALINE INJ 1 MG/ML AMP SQ PRN (10:30)
--- NOTE | 2017-08-01 10:55 | PD.PROCEDR ---
Central Line Procedure REASON FOR PROCEDURE Central venous access PROCEDURE PERFORMED Central line placement: Right IJ CVL CONSENT Informed consent for procedure was not obtained and considered emergent due to hemodynamic instability and malpositioned left subclavian catheter. The risks and benefits of the procedure were discussed to include but limited to bleeding , clot formation, infection, and even . ANESTHESIA Local injection of 1% Lidocaine DESCRIPTION OF THE PROCEDURE The patient was placed in supine, mild Trendelenburg position. The area was exposed and cleansed with ChloraPrep, times two. Large sterile drape was used to cover the patient, with the site exposed, under sterile conditions including cap, face mask, sterile gown, and sterile gloves. On single attempt, the introducer needle was inserted with negative pressure in syringe and venous flash was obtained. The guide wire was then advanced without any restriction and the needle was removed. The dilator was used without any complications. Using Seldinger technique the triple-lumen antibiotic coated catheter was advanced over the guide wire to a depth of 16 centimeters. The guide wire was removed. All ports were aspirated with dark venous blood return and flushed easily with sterile saline. All ports were capped. Antibiotic disc was placed around central line at puncture site. The central line was secured to the skin with two interrupted 2.0 silk sutures. The area was bandaged with sterile see- through central line bandage. RADIOLOGICAL DATA Ultrasound guidance was used to locate right internal jugular vein. Doppler/ color flow was used to confirm venous flow. COMPLICATIONS: No apparent complications ESTIMATED BLOOD LOSS: Less than 1 cc. Joseph Lopez MD Aug 01, 2017 10:55
[2017-08-01] MEDS ORDERED: PHENYLEPHRINE INJ 160 MG in DEXTROSE 5% IN WATE 500 ML INJ 484 ML IV PRN ×2 (11:00)
[2017-08-01] MEDS ORDERED: SODIUM CHLORIDE 0.9% FLUSH 10 ML FLUSH IV FLUSH PRN (11:00)
[2017-08-01] MEDS: DILTIAZEM INJ 125 MG in SODIUM CHLORIDE 0.9% INJ 100 ML IV PRN ×2 (11:00→23:09)
--- NOTE | 2017-08-01 11:35 | RADRPT ---
EXAM DATE/TIME: 08/01/2017 11:04 [facility] COMPARISON: CT THORAX W/O CONTRAST, July 27, 2017, 11:09. CHEST SINGLE AP, July 31, 2017, 8:01. INDICATIONS : Central line placement. MEDICAL HISTORY : Cardiovascular disease. Chronic obstructive pulmonary disease. A-Fib. SURGICAL HISTORY : None. ENCOUNTER: Subsequent ACUITY: 1 day PAIN SCORE: Non-responsive. LOCATION: Bilateral chest FINDINGS: Right neck central line is present in position with tip overlying SVC. There is no evidence of pneumo thorax or complication of placement endotracheal tube is stable in good position with tip 3-4 cm abov e the melinda. Nasogastric tube descends to the stomach. There is persistent mild hazy bibasilar paren chymal opacity, left worse than right which is improved. Ectatic for rotation, cardiac contours are s table.. CONCLUSION: Satisfactory Central line positioning. Improving aeration Johnathan Hinton MD on August 01, 2017 at 11:32 Board Certified Radiologist. This report was verified electronically.
[2017-08-01] MEDS: LACTOBACILLUS ACIDOPHILUS TAB PO SCH ×2 (12:42→18:41)
--- NOTE | 2017-08-01 12:56 | EKG ---
Date Performed: 08/01/2017 Time Performed: 10:26:21 PTAGE: 66 years EKG: ATRIAL FIBRILLATION WITH RAPID VENTRICULAR RESPONSE NONSPECIFIC ST & T-WAVE ABNORMALITY ABN ORMAL ECG PREVIOUS TRACING : 07/26/2017 14.18 Compared to previous tracing, patient is now in atrial fibr illation with rapid ventricular response. DOCTOR: Trung Jeter Interpretating Date/Time 08/01/2017 12:55:27
--- NOTE | 2017-08-01 13:10 | HHI.HCPN ---
Spoke with brother, Mikey Hollis ([phone]). He is aware Mr. Hollis is here at [facility] in ICU. He states he does not wish to participate in medical decision making. He "will leave that up to Gerhard who will keep me updated". Palliative care WELDER SETTER RESISTANCE MACHINE to update Gerhard and further address goals of care. Palliative care will continue to follow throughout hospitalization. Марина Garza, REALTIME REPORTER Aug 01, 2017 13:10
[2017-08-01] MEDS: ARTIFICIAL TEARS OPTH SOLN 15 ML BTL EACH EYE SCH (14:00)
[2017-08-01 14:57] LABS: C. DIFF EPI 027 PRESUMPTIVE NEGATIVE (NEGATIVE)
--- NOTE | 2017-08-01 16:16 | HHI.PR ---
Review/Management Diagnosis/Plan: (1) Acute encephalopathy ICD Codes: G93.40 - Encephalopathy, unspecified Status: Acute Plan: 2/2 sepsis/hyperammonemia hypotension/ ? hypoxia apparently has confusion at senior care and question of underlying dementia per rn at bedside/ has underlying liver cirrhosis recs neuro unchanged nh3 rising ct brain-pending- not completed due to critical status +brainstem reflexes but has cortical injury poor long-term prognosis with multiple medical morbidities has been made dnr per rn (2) Respiratory failure ICD Codes: J96.90 - Respiratory failure, unspecified, unspecified whether with hypoxia or hypercapnia Plan: ccm watching intubated (3) Sepsis ICD Codes: A41.9 - Sepsis, unspecified organism Status: Acute (4) Cirrhosis of liver ICD Codes: K74.60 - Unspecified cirrhosis of liver Status: Chronic Subjective Subjective Comments No acute events reported Active Medications Current Medications Medications (Trade) Dose Ordered Sig/Ned Route Start Time Stop Time Status Last Admin Miscellaneous Information 1 [id number] XX 07/26/17 15:45 (Chlorhexidine 2% Cloth) Taper DAILY@04 TOP 07/27/17 04:00 07/23/18 03:59 08/01/17 00:54 (Chlorhexidine 2% Cloth) 3 pack UNSCH PRN TOP 07/26/17 15:45 (Milk Of Magnesia Liq) 30 ml Q12H PRN PO 07/26/17 15:45 (Senokot) 17.2 mg Q12H PRN PO 07/26/17 15:45 (Dulcolax Supp) 10 mg DAILY PRN RECTAL 07/26/17 15:45 (Lactulose Liq) 30 ml DAILY PRN PO 07/26/17 15:45 Fentanyl Citrate 250 ml @ 5 mls/hr TITRATE PRN IV 07/26/17 17:15 08/01/17 00:54 (D50w (Vial) Inj) 50 ml UNSCH PRN IV PUSH 07/27/17 09:00 (Glucagon Inj) 1 mg UNSCH PRN OTHER 07/27/17 09:00 (NovoLIN R SUPPLEMENTAL SCALE) 1 Q4HR SQ 07/27/17 09:00 07/30/17 16:00 Potassium Chloride 100 ml @ 50 mls/hr Q2H PRN IV 07/28/17 07:15 Potassium Chloride 100 ml @ 50 mls/hr Q2H PRN IV 07/28/17 07:15 (K-Lyte Cl Eff) 50 meq UNSCH PRN PO 07/28/17 07:15 Potassium Chloride 100 ml @ 25 mls/hr UNSCH PRN IV 07/28/17 07:15 Potassium Chloride 100 ml @ 50 mls/hr Q2H PRN IV 07/28/17 07:15 Magnesium Sulfate 4 gm/Sodium Chloride 100 ml @ 50 mls/hr UNSCH PRN IV 07/28/17 07:15 (Mag-Ox) 800 mg UNSCH PRN PO 07/28/17 07:15 Magnesium Sulfate 2 gm/Sodium Chloride 100 ml @ 50 mls/hr UNSCH PRN IV 07/28/17 07:15 (K-Phos) 2,000 mg Q4H PRN PO 07/28/17 07:15 Sodium Phosphate 30 mmol/Sodium Chloride 250 ml @ 42 mls/hr UNSCH PRN IV 07/28/17 07:15 07/28/17 13:59 (K-Phos) 2,000 mg UNSCH PRN PO/TUBE 07/28/17 07:15 Potassium Phosphate 30 mmol/ Sodium Chloride 260 ml @ 42 mls/hr UNSCH PRN IV 07/28/17 07:15 Meropenem 1000 mg/ Sodium Chloride 100 ml @ 200 mls/hr Q8H IV 07/29/17 17:00 08/01/17 08:33 (SoluCORTEF INJ) 50 mg Q12H IV PUSH 07/30/17 14:00 08/01/17 15:39 (Xifaxan) 550 mg BID PO 07/30/17 09:00 08/01/17 08:30 (Lactulose Liq) 30 ml Q6H PO 07/31/17 15:00 08/01/17 15:39 (Tears Naturale Opth Soln) 1 drop Q8HR EACH EYE 08/01/17 14:00 (Duoneb Neb) 1 ampule Q6HR NEB NEB 08/01/17 10:00 08/01/17 14:40 (Albuterol Neb) 2.5 mg Q2HR NEB PRN NEB 08/01/17 10:00 (Prevacid Odt) 30 mg DAILY NG 08/01/17 09:00 08/01/17 08:31 (Pulmicort Respule Neb) 0.5 mg Q12HR NEB NEB 08/01/17 20:00 (Lactinex) 1 tab TID PO 08/01/17 13:00 08/01/17 12:42 (Zyvox) 600 mg Q12HR PO 08/01/17 21:00 Phenylephrine HCl 160 mg/Dextrose 500 ml @ 7.5 mls/hr TITRATE PRN IV 08/01/17 11:00 08/01/17 11:00 (Brethine Inj) 1 mg UNSCH PRN SQ 08/01/17 10:30 Diltiazem HCl 125 mg/Sodium Chloride 125 ml @ 5 mls/hr TITRATE PRN IV 08/01/17 11:00 08/01/17 11:00 Propofol 100 ml @ 2.244 mls/ hr TITRATE PRN IV 08/01/17 11:00 08/01/17 10:29 (NS Flush) DAILY IV FLUSH 08/02/17 09:00 (NS Flush) UNSCH PRN IV FLUSH 08/01/17 11:00 Allergies Allergies Coded Allergies No Known Allergies (Unverified07/26/17) Review of Systems All other ROS: Unable to obtain Exam I&O / VS 08/01/17 08/01/17 08/02/17 15:00 23:00 07:00 Intake Total 210 ml Balance 210 ml Intake IV Total 210 ml Vital Signs Date Time Temp Pulse Resp B/P (MAP) Pulse Ox O2 Delivery O2 Flow Rate FiO2 08/01/17 15:00 101 18 123/77 (92) 99 08/01/17 14:00 92 08/01/17 14:00 92 18 101/62 (75) 98 08/01/17 13:00 107 18 118/70 (86) 98 08/01/17 12:00 40 08/01/17 12:00 134 08/01/17 12:00 99.1 134 20 118/66 (83) 08/01/17 11:11 96 40 08/01/17 11:00 147 26 77/49 (58) 96 08/01/17 11:00 147 77/49 08/01/17 11:00 147 77/49 08/01/17 10:00 150 18 99/56 (70) 98 08/01/17 10:00 82 08/01/17 09:00 100 17 129/66 (87) 97 08/01/17 08:00 88 08/01/17 08:00 98.3 94 18 133/80 (97) 96 08/01/17 08:00 40 08/01/17 07:12 95 40 08/01/17 07:00 95 17 124/75 (91) 95 08/01/17 06:00 87 08/01/17 04:19 96 40 08/01/17 04:00 81 08/01/17 04:00 98.3 89 18 142/79 (100) 97 08/01/17 04:00 40 08/01/17 02:00 81 08/01/17 01:00 95 40 08/01/17 00:00 81 08/01/17 00:00 98.3 89 18 133/83 (100) 97 08/01/17 00:00 40 07/31/17 22:10 95 40 07/31/17 22:00 81 07/31/17 20:00 98.3 89 18 115/76 (89) 97 07/31/17 20:00 40 07/31/17 20:00 89 07/31/17 19:15 92 40 07/31/17 19:00 98 18 130/79 (96) 92 07/31/17 18:30 83 18 119/72 (88) 96 07/31/17 18:00 80 07/31/17 18:00 98.3 80 18 123/76 (92) 97 07/31/17 17:31 88 18 119/83 (95) 96 07/31/17 17:00 91 18 104/72 (83) 96 07/31/17 16:31 86 18 105/71 (82) 96 Exam Comments intubated, eyes open, not following, on multiple gtt's, no blink to threat, + oculocephalic reflex present, grimaces to tactile, ou 3mm sluggish, + movement of all ext, no clonus, planter flexor Objective Micro and Labs Laboratory Tests Test 08/01/17 03:20 08/01/17 09:55 08/01/17 12:50 White Blood Count 15.5 Red Blood Count 3.50 Hemoglobin 12.4 Hematocrit 35.4 Mean Corpuscular Volume 101.1 Mean Corpuscular Hemoglobin 35.4 Mean Corpuscular Hemoglobin Concent 35.0 Red Cell Distribution Width 15.4 Platelet Count 103 Mean Platelet Volume 7.4 Neutrophils (%) (Auto) 82.3 Lymphocytes (%) (Auto) 5.3 Monocytes (%) (Auto) 11.9 Eosinophils (%) (Auto) 0.0 Basophils (%) (Auto) 0.5 Neutrophils # (Auto) 12.7 Lymphocytes # (Auto) 0.8 Monocytes # (Auto) 1.8 Eosinophils # (Auto) 0.0 Basophils # (Auto) 0.1 CBC Comment AUTO DIFF Differential Total Cells Counted 100 Neutrophils % (Manual) 84 Band Neutrophils % 6 Lymphocytes % 4 Monocytes % 5 Neutrophils # (Manual) 14.1 Metamyelocytes 1 Differential Comment FINAL DIFF MANUAL Toxic Granulation 1+ Platelet Estimate LOW Platelet Morphology Comment NORMAL Blood Urea Nitrogen 62 Creatinine 1.34 Random Glucose 135 Total Protein 6.4 Albumin 1.7 Calcium Level 8.6 Phosphorus Level 3.9 Magnesium Level 2.4 Alkaline Phosphatase 82 Aspartate Amino Transf (AST/SGOT) 110 Alanine Aminotransferase (ALT/SGPT) 88 Total Bilirubin 3.6 Sodium Level 138 Potassium Level 5.5 4.7 Chloride Level 102 Carbon Dioxide Level 30.7 Anion Gap 5 Estimat Glomerular Filtration Rate 54 Stool C. difficile Toxin (PCR) NEGATIVE Stl C. difficile Toxin Epiderm 027 PRESUMPTIVE NEGATIVE Date/Time Source Procedure Growth Status 07/27/17 12:18 Blood Peripheral Aerobic Blood Culture - Final NO GROWTH IN 5 DAYS Complete 07/27/17 12:18 Blood Peripheral Anaerobic Blood Culture - Final NO GROWTH IN 5 DAYS Complete 07/28/17 04:00 Sputum Endotracheal Gram Stain - Final Complete 07/28/17 04:00 Sputum Culture - Final Escherichia Coli Esbl Positive Pseudomonas Aeruginosa Complete 07/31/17 08:45 Urine Catheterized Urine Urine Culture - Preliminary NO GROWTH IN 24 HOURS. Resulted Problem Qualifiers (1) Respiratory failure: (2) Cirrhosis of liver: Qualified Codes: K74.69 - Other cirrhosis of liver Vishal Marte MD Aug 01, 2017 16:16
--- NOTE | 2017-08-01 16:55 | HHI.HCPN ---
Reason for visit a. To assist with evaluation and management of symptoms including: Pain, dyspnea, encephalopathy b. To assist medical decision maker(s) with: better understanding of current medical conditions; weighing benefits/burdens of medical treatment options; making medical treatment decisions. . Subjective/Interval History Patient seen and examined in ICU. No family at bedside. Discussed with nurse. Discussed with Dr. Lopez. Tmax 99.9. Tachycardic, atrial fibrillation with RVR on Cardizem drip, rate 100 -135. W BC 15.5 increased from 9.6. Worsening renal function creatinine increased from 0.95 to 1.34. Potassium 5.5. Worsening liver function total bilirubin 3.6 increased from 2.4, AST 110, ALT 88, ammonia 114. Albumin 1.7. 07/28/17 sputum culture positive E. E. coli ESBL positive multidrug resistant and pseudomonas aeruginosa pansensitive. 07/31/17 urine culture no growth 24 hours. Chest x-ray improving aeration. Neurology, Dr. Marte was consulted and indicates overall poor long-term prognosis with multiple medical comorbidities including underlying dementia and liver cirrhosis. . Family/friend interactions Spoke with health care proxy, Gerhard Hollis (brother) and LANNY via telephone to provide medical update. Patient's only other brother, Mikey Hollis has opted out of serving in health care proxy decision maker role. In speaking with Gerhard Hollis/HCP he has elected NO CODE status. He understands overall poor prognosis for meaningful recovery. Medical update provided. Family would like a few more days to monitor patient progress. Agreed to provide medical update on 08/04/17 for further clarification of treatment goals. Family seems to be leaning toward transition to comfort focused care with withdrawal of life support given overall poor prognosis. . Advance Directives Advance Directive Specifics Documented care wishes: No document care wishes are available at this time. . Significant change in goals: No CODE. Family like to monitor patient's progress over the weekend, will reevaluate goals of care on 08/04/17. Family seems to be leaning toward transition to comfort focused care with withdrawal of life support if no significant clinical improvement in the coming days. . Objective Vital Signs Date Time Temp Pulse Resp B/P (MAP) Pulse Ox O2 Delivery O2 Flow Rate FiO2 08/01/17 16:07 96 40 08/01/17 16:00 103 08/01/17 16:00 99.9 103 18 117/76 (90) 99 08/01/17 16:00 40 08/01/17 15:00 101 18 123/77 (92) 99 08/01/17 14:00 92 08/01/17 14:00 92 18 101/62 (75) 98 08/01/17 13:00 107 18 118/70 (86) 98 08/01/17 12:00 40 08/01/17 12:00 134 08/01/17 12:00 99.1 134 20 118/66 (83) 08/01/17 11:11 96 40 08/01/17 11:00 147 26 77/49 (58) 96 08/01/17 11:00 147 77/49 08/01/17 11:00 147 77/49 08/01/17 10:00 150 18 99/56 (70) 98 08/01/17 10:00 82 08/01/17 09:00 100 17 129/66 (87) 97 08/01/17 08:00 88 08/01/17 08:00 98.3 94 18 133/80 (97) 96 08/01/17 08:00 40 08/01/17 07:12 95 40 08/01/17 07:00 95 17 124/75 (91) 95 08/01/17 06:00 87 08/01/17 04:19 96 40 08/01/17 04:00 81 08/01/17 04:00 98.3 89 18 142/79 (100) 97 08/01/17 04:00 40 08/01/17 02:00 81 08/01/17 01:00 95 40 08/01/17 00:00 81 08/01/17 00:00 98.3 89 18 133/83 (100) 97 08/01/17 00:00 40 07/31/17 22:10 95 40 07/31/17 22:00 81 07/31/17 20:00 98.3 89 18 115/76 (89) 97 07/31/17 20:00 40 07/31/17 20:00 89 07/31/17 19:15 92 40 07/31/17 19:00 98 18 130/79 (96) 92 07/31/17 18:30 83 18 119/72 (88) 96 07/31/17 18:00 80 07/31/17 18:00 98.3 80 18 123/76 (92) 97 07/31/17 17:31 88 18 119/83 (95) 96 07/31/17 17:00 91 18 104/72 (83) 96 Intake & Output 08/01/17 08/01/17 07:00 19:00 Intake Total 680 ml 210 ml Output Total 1475 ml Balance -795 ml 210 ml Intake IV Total 255 ml 210 ml Tube Feeding 425 ml Output Urine Total 1475 ml # Bowel Movements 6 Physical Exam CONSTITUTIONAL/GENERAL: This is a 66-year-old male who appears older than his documented age, currently intubated on mechanical ventilator TUBES/LINES/DRAINS: CVL, PIV x 1, NGT, ETT, CVL SKIN: + Purpura Ecchymoses on upper extremities. No wounds seen anteriorly. Skin temperature appropriate. Not diaphoretic. HEAD: Atraumatic. Normocephalic. EYES: Pupils round and equal, sluggish. No scleral icterus. No injection or drainage. ENT: Nose without bleeding or purulent drainage. NECK: Trachea midline. Supple, nontender. No palpable thyroid enlargement or nodularity. CARDIOVASCULAR: Regular rate and rhythm without murmurs, gallops, or rubs. No JVD. Peripheral pulses symmetric. RESPIRATORY/CHEST: Intubated on mechanical ventilator Breath sounds diminished bilaterally. No sensory muscle use GASTROINTESTINAL: Abdomen soft, non-tender, nondistended. No hepato-splenomegaly , or palpable masses. No guarding. Hypoactive bowel sounds GENITOURINARY: Without palpable bladder distension. MUSCULOSKELETAL: Extremities without clubbing, cyanosis, or edema. No mottling or clubbing. LYMPHATICS: No palpable cervical or supraclavicular adenopathy. NEUROLOGICAL: Sedated on fentanyl. Eyes open spontaneously; does not blink to threat. PSYCHIATRIC: Difficult to assess given patient's clinical condition. No obvious anxiety/depression. no apparent hallucinations or other psychotic thought process. . Diagnostic Tests Laboratory Laboratory Tests Test 07/29/17 21:47 07/30/17 04:30 07/30/17 07:50 07/31/17 04:07 Ammonia 74 MCMOL/L (11-32) 70 MCMOL/L (11-32) White Blood Count 7.9 TH/MM3 (4.0-11.0) 9.6 TH/MM3 (4.0-11.0) Red Blood Count 3.06 MIL/MM3 (4.50-5.90) 3.26 MIL/MM3 (4.50-5.90) Hemoglobin 11.1 GM/DL (13.0-17.0) 11.5 GM/DL (13.0-17.0) Hematocrit 30.8 % (39.0-51.0) 33.0 % (39.0-51.0) Mean Corpuscular Volume 100.8 FL (80.0-100.0) 101.3 FL (80.0-100.0) Mean Corpuscular Hemoglobin 36.4 PG (27.0-34.0) 35.4 PG (27.0-34.0) Mean Corpuscular Hemoglobin Concent 36.1 % (32.0-36.0) 35.0 % (32.0-36.0) Red Cell Distribution Width 15.9 % (11.6-17.2) 15.7 % (11.6-17.2) Platelet Count 50 TH/MM3 (150-450) 71 TH/MM3 (150-450) Mean Platelet Volume 8.3 FL (7.0-11.0) 8.4 FL (7.0-11.0) Neutrophils (%) (Auto) 84.7 % (16.0-70.0) 82.6 % (16.0-70.0) Lymphocytes (%) (Auto) 6.2 % (9.0-44.0) 7.2 % (9.0-44.0) Monocytes (%) (Auto) 9.0 % (0.0-8.0) 10.2 % (0.0-8.0) Eosinophils (%) (Auto) 0.0 % (0.0-4.0) 0.0 % (0.0-4.0) Basophils (%) (Auto) 0.1 % (0.0-2.0) 0.0 % (0.0-2.0) Neutrophils # (Auto) 6.7 TH/MM3 (1.8-7.7) 7.9 TH/MM3 (1.8-7.7) Lymphocytes # (Auto) 0.5 TH/MM3 (1.0-4.8) 0.7 TH/MM3 (1.0-4.8) Monocytes # (Auto) 0.7 TH/MM3 (0-0.9) 1.0 TH/MM3 (0-0.9) Eosinophils # (Auto) 0.0 TH/MM3 (0-0.4) 0.0 TH/MM3 (0-0.4) Basophils # (Auto) 0.0 TH/MM3 (0-0.2) 0.0 TH/MM3 (0-0.2) CBC Comment AUTO DIFF AUTO DIFF Differential Total Cells Counted 100 Neutrophils % (Manual) 73 % (16-70) Band Neutrophils % 15 % (0-6) Lymphocytes % 3 % (9-44) Monocytes % 9 % (0-8) Neutrophils # (Manual) 7.0 TH/MM3 (1.8-7.7) Differential Comment FINAL DIFF MANUAL AUTO DIFF CONFIRMED Platelet Estimate LOW (NORMAL) LOW (NORMAL) Platelet Morphology Comment NORMAL (NORMAL) NORMAL (NORMAL) Blood Urea Nitrogen 34 MG/DL (7-18) 42 MG/DL (7-18) Creatinine 0.89 MG/DL (0.60-1.30) 0.95 MG/DL (0.60-1.30) Random Glucose 150 MG/DL (74-106) 132 MG/DL (74-106) Calcium Level 8.0 MG/DL (8.5-10.1) 8.6 MG/DL (8.5-10.1) Phosphorus Level 2.8 MG/DL (2.5-4.9) 3.3 MG/DL (2.5-4.9) Magnesium Level 1.9 MG/DL (1.5-2.5) 2.1 MG/DL (1.5-2.5) Sodium Level 140 MEQ/L (136-145) 139 MEQ/L (136-145) Potassium Level 4.1 MEQ/L (3.5-5.1) 4.9 MEQ/L (3.5-5.1) Chloride Level 103 MEQ/L (98-107) 102 MEQ/L (98-107) Carbon Dioxide Level 30.6 MEQ/L (21.0-32.0) 30.9 MEQ/L (21.0-32.0) Anion Gap 6 MEQ/L (5-15) 6 MEQ/L (5-15) Estimat Glomerular Filtration Rate 86 ML/MIN (>89) 80 ML/MIN (>89) Free Thyroxine 1.07 NG/DL (0.76-1.46) Free Triiodothyronine (T3) pg/dL 1.22 PG/ML (2.18-3.98) Thyroid Stimulating Hormone 3rd Gen 1.890 uIU/ML (0.358-3.740) Toxic Granulation (NORMAL) Total Protein 6.3 GM/DL (6.4-8.2) Albumin 1.6 GM/DL (3.4-5.0) Alkaline Phosphatase 58 U/L (45-117) Aspartate Amino Transf (AST/SGOT) 108 U/L (15-37) Alanine Aminotransferase (ALT/SGPT) 85 U/L (12-78) Total Bilirubin 2.4 MG/DL (0.2-1.0) Test 07/31/17 08:20 07/31/17 08:45 07/31/17 12:37 07/31/17 16:00 Ammonia 114 MCMOL/L (11-32) Urine Color DARK-YELLOW (YELLW/STRAW) Urine Turbidity CLEAR (CLEAR) Urine pH 6.0 (5.0-8.5) Urine Specific [place] 1.026 (1.002-1.035) Urine Protein TRACE mg/dL (NEG-TRACE) Urine Glucose (UA) NEG mg/dL (NEG) Urine Ketones TRACE mg/dL (NEG) Urine Occult Blood SMALL (NEG) Urine Nitrite NEG (NEG) Urine Bilirubin NEG (NEG) Urine Urobilinogen 8.0 MG/DL (LESS THAN Urine Leukocyte Esterase MOD (NEG) Urine RBC 21 /hpf (0-3) Urine WBC 13 /hpf (0-5) Urine Squamous Epithelial Cells <1 /hpf (0-5) Urine Bacteria RARE /hpf (NONE) Urine Hyaline Casts 42 /lpf (RARE) Urine Mucus FEW /lpf (OCC) Microscopic Urinalysis Comment CATH-CULTURE IND Blood Gas Puncture Site RT RADIAL Blood Gas Patient Temperature 98.6 Blood Gas HCO3 28 mmol/L (22-26) Blood Gas Base Excess 3.3 mmol/L (-2-2) Blood Gas Oxygen Saturation 95 % (90-100) Arterial Blood pH 7.36 (7.380-7.420) Arterial Blood Partial Pressure CO2 51 mmHg (38-42) Arterial Blood Partial Pressure O2 111 mmHg (61-120) Arterial Blood Oxygen Content 16.7 Vol % (12.0-20.0) Arterial Blood Carboxyhemoglobin 1.9 % (0-4) Arterial Blood Methemoglobin 1.1 % (0-2) Blood Gas Hemoglobin 12.3 G/DL (12.0-16.0) Oxygen Delivery Device VENTILATOR Blood Gas Ventilator Setting 500/16/+5/0.9 Blood Gas Inspired Oxygen 40 % Hepatitis A IgM Antibody NEGATIVE (NEGATIVE) Hepatitis B Surface Antigen NEGATIVE (NEGATIVE) Hepatitis B Core IgM Antibody NEGATIVE (NEGATIVE) Hepatitis C Antibody REACTIVE (NEGATIVE) Test 08/01/17 03:20 08/01/17 09:55 08/01/17 12:50 White Blood Count 15.5 TH/MM3 (4.0-11.0) Red Blood Count 3.50 MIL/MM3 (4.50-5.90) Hemoglobin 12.4 GM/DL (13.0-17.0) Hematocrit 35.4 % (39.0-51.0) Mean Corpuscular Volume 101.1 FL (80.0-100.0) Mean Corpuscular Hemoglobin 35.4 PG (27.0-34.0) Mean Corpuscular Hemoglobin Concent 35.0 % (32.0-36.0) Red Cell Distribution Width 15.4 % (11.6-17.2) Platelet Count 103 TH/MM3 (150-450) Mean Platelet Volume 7.4 FL (7.0-11.0) Neutrophils (%) (Auto) 82.3 % (16.0-70.0) Lymphocytes (%) (Auto) 5.3 % (9.0-44.0) Monocytes (%) (Auto) 11.9 % (0.0-8.0) Eosinophils (%) (Auto) 0.0 % (0.0-4.0) Basophils (%) (Auto) 0.5 % (0.0-2.0) Neutrophils # (Auto) 12.7 TH/MM3 (1.8-7.7) Lymphocytes # (Auto) 0.8 TH/MM3 (1.0-4.8) Monocytes # (Auto) 1.8 TH/MM3 (0-0.9) Eosinophils # (Auto) 0.0 TH/MM3 (0-0.4) Basophils # (Auto) 0.1 TH/MM3 (0-0.2) CBC Comment AUTO DIFF Differential Total Cells Counted 100 Neutrophils % (Manual) 84 % (16-70) Band Neutrophils % 6 % (0-6) Lymphocytes % 4 % (9-44) Monocytes % 5 % (0-8) Neutrophils # (Manual) 14.1 TH/MM3 (1.8-7.7) Metamyelocytes 1 % (0-1) Differential Comment FINAL DIFF MANUAL Toxic Granulation 1+ (NORMAL) Platelet Estimate LOW (NORMAL) Platelet Morphology Comment NORMAL (NORMAL) Blood Urea Nitrogen 62 MG/DL (7-18) Creatinine 1.34 MG/DL (0.60-1.30) Random Glucose 135 MG/DL (74-106) Total Protein 6.4 GM/DL (6.4-8.2) Albumin 1.7 GM/DL (3.4-5.0) Calcium Level 8.6 MG/DL (8.5-10.1) Phosphorus Level 3.9 MG/DL (2.5-4.9) Magnesium Level 2.4 MG/DL (1.5-2.5) Alkaline Phosphatase 82 U/L (45-117) Aspartate Amino Transf (AST/SGOT) 110 U/L (15-37) Alanine Aminotransferase (ALT/SGPT) 88 U/L (12-78) Total Bilirubin 3.6 MG/DL (0.2-1.0) Sodium Level 138 MEQ/L (136-145) Potassium Level 5.5 MEQ/L (3.5-5.1) 4.7 MEQ/L (3.5-5.1) Chloride Level 102 MEQ/L (98-107) Carbon Dioxide Level 30.7 MEQ/L (21.0-32.0) Anion Gap 5 MEQ/L (5-15) Estimat Glomerular Filtration Rate 54 ML/MIN (>89) Stool C. difficile Toxin (PCR) NEGATIVE (NEGATIVE) Stl C. difficile Toxin Epiderm 027 PRESUMPTIVE NEGATIVE Result Diagram: 08/01/17 0320 08/01/17 1250 Microbiology Microbiology Date/Time Source Procedure Growth Status 07/31/17 08:45 Urine Catheterized Urine Urine Culture - Preliminary NO GROWTH IN 24 HOURS. Resulted Imaging Last Impressions Chest X-Ray 08/01/17 1055 Signed Impressions: Service Date/Time: Tuesday, August 01, 2017 11:04 - CONCLUSION: Satisfactory Central line positioning. Improving aeration Johnathan Hinton MD Abdomen Ultrasound 07/28/17 0000 Signed Impressions: Service Date/Time: Friday, July 28, 2017 08:20 - CONCLUSION: 1. Trace ascites Willian Parks MD Liver Ultrasound 07/27/17 0000 Signed Impressions: Service Date/Time: Thursday, July 27, 2017 12:06 - CONCLUSION: Cirrhosis of liver with surrounding ascites and possible occlusion of the portal vein. Gallstones. Rafael Breaux MD Chest CT 07/27/17 0000 Signed Impressions: Service Date/Time: Thursday, July 27, 2017 11:09 - CONCLUSION: 1. There is a left-sided SVC present with a central line identified within the lumen and terminating within the region of the coronary sinus. 2. Moderate ascites with cirrhotic changes of the liver and multiple varices consistent with portal hypertension. 3. Probably positioned endotracheal tube and orogastric tube. 4. Moderate to severe centrilobular emphysematous change. Monika Sims MD Head CT 07/26/17 0000 Signed Impressions: Service Date/Time: Thursday, July 27, 2017 11:06 - CONCLUSION: 1. No acute intracranial abnormality. 2. There is a small amount of fluid in the posterior aspect of both maxillary sinuses. Jayden Olvera MD . Procedures 07/26/2017: Intubation 07/26/2017: NGT placed 07/26/2017: Left subclavian central line placement . Assessment and Plan Disease Oriented Problem List: (1) Hyperkalemia (2) Symptomatic bradycardia (3) Sepsis (4) Acute encephalopathy Symptom Scale: (1) Encephalopathy 0-10 Scale: Unable to quantify (2) Dyspnea 0-10 Scale: Unable to quantify (3) Pain 0-10 Scale: Unable to quantify Pertinent Non-Medical Issues Psychosocial:Per patient's brother (Gerhard). Patient is originally from [place]. He has 2 older brothers. Mikey lives in [place] and is apparently in poor health. Gerhard lives in [place]. The patient worked as a electric lift truck driver. Apparently, the patient has been incarcerated since 1992. Spiritual: Pending further discussion with patient's family Legal: Per [place] statutes, in the absence of written advanced directives healthcare proxy decision-making falls to the patient's 2 brothers. Gerhard states he is the designated health care surrogate; he states the longterm has documentation that designates him as the healthcare surrogate decision maker. Ethical issues impacting care: No known ethical issues impacting care at this time. . Important Contacts Gerhard Hollis, brother: [phone] . Prognosis Patient is a 66-year-old inmate who was found unresponsive in his cell. CPR was initiated although it was later determined the patient had a DNR in place. Patient is currently sedated and intubated on mechanical ventilator, being transcutaneously paced. Infectious disease following as well. Patient with severe encephalopathy. The patient may not survive this hospitalization; if he does survive this hospitalization he will likely be at risk for ongoing decline and complications. Overall prognosis is poor for meaningful recovery. . Code Status: No Code Plan * Decision-making: Patient is currently incapacitated to make his own decisions , unlikely to regain capacity. No written advance directives have been located. According to [place] statutes, health care proxy decision-making would fall to majority of siblings. Patient has 2 brothers. Brother Mikey Hollis has opted out of decision making. Brother Gerhard Hollis has agreed to serve as healthcare proxy decision maker. * NO CODE * Goals: Gerhard, brother/HCP would like to monitor patient's progress over the weekend, will reevaluate goals of care. Family seems to be leaning toward transition to comfort focused care with withdrawal of life support if no significant clinical improvement in the coming days. Palliative care will have another phone conference Friday08/04/17. * Discussed with Dr. Lopez and nurse, Nayeli. * Symptom management - Encephalopathy: EEG on 07/28/17 showing encephalopathy possibly secondary to sepsis/hyperammonemia/hypotension/hypoxia. Apparently patient has some confusion at baseline, questionable underlying dementia. Follow -up EEG on 07/30/2017 showing severe encephalopathy with no seizure activity. NeurologyDe. Marte indicates poor prognosis. No purposeful movements. * Symptom management - Dyspnea: Patient remains intubated on mechanical ventilator. * Symptom management - Pain: Patient currently on fentanyl. Showing no nonverbal signs or symptoms of pain on examination. No new medication recommendations at this time. * Palliative care will continue to follow this patient throughout his hospitalization to establish trust, assist with symptom management and clarification of medical treatment goals. . . Attestation To help prompt me to consider important information that might be impacting today's encounter and assessment, information from prior notes written by myself or my colleagues may have been "brought forward" into today's note. My signature on this note, however, is an attestation that I personally performed the exam, history, and/or decision-making noted today, and, unless otherwise indicated, the interactions with patient, family, and staff as well as the review of records all occurred today. I also attest that the listed assessment and stated plan reflect my best clinical judgment today based on the combination of historical information, prior notes, and today's exam/ interactions. When time spent is documented, it refers only to time spent today by the signer, or if indicated, combined time spent today by collaborating physician/nurse practitioner. Margarita Rock Aug 01, 2017 16:55
--- NOTE | 2017-08-01 18:23 | RADRPT ---
EXAM DATE/TIME: 08/01/2017 15:52 [facility] COMPARISON: No previous studies available for comparison. INDICATIONS : Portal vein thrombosis. MEDICAL HISTORY : Chronic obstructive pulmonary disease. Congestive heart failure. Cirrhosis. Afib. Chronic hepatitis C . SURGICAL HISTORY : None. ENCOUNTER: Subsequent ACUITY: 1 week PAIN SCORE: Nonresponsive. LOCATION: Bilateral upper quadrant MEASUREMENTS: LIVER: 12.9 cm length COMMON DUCT: 3 mm RIGHT KIDNEY: 13.0 x 5.7 x 4.0 cm SPLEEN: 12.7 cm length FINDINGS: LIVER: Liver is shrunken and cirrhotic in appearance. There is abundant ascites present. Left pleural effusi on. Evaluation of the hepatic vasculature reveals bidirectional and/or stagnant flow in the main and branch portal veins, however thrombus is not clearly demonstrated. Hepatic artery is patent. Hepatic veins are not well-visualized. COMMON DUCT: No intraluminal mass or stone visualized. GALLBLADDER: Minimal dependent sludge or stone debris. PANCREAS: Not well seen RIGHT KIDNEY: No hydronephrosis, stone or mass. SPLEEN: Borderline size. No focal lesion AORTA: Non aneurysmal. IVC: Within normal limits. CONCLUSION: Stagnant/bidirectional flow in the portal venous system. Johnathan Hinton MD on August 01, 2017 at 18:14 Board Certified Radiologist. This report was verified electronically.
[2017-08-01] MEDS: RESP: BUDESONIDE 0.5 MG/2 ML NEB NEB SCH (19:20)
[2017-08-01] MEDS: LINEZOLID 600 MG TAB PO SCH (21:21)
[2017-08-02] VITALS (38 sets, daily range): BP systolic 92–125; BP diastolic 62–84; PULSE 88–130; RESP 8–21; TEMP 97.6–99.8; O2SAT 91–100
[2017-08-02] MEDS: ARTIFICIAL TEARS OPTH SOLN 15 ML BTL EACH EYE SCH ×4 (00:12→22:14)
[2017-08-02] MEDS: MEROPENEM INJ 1,000 MG in SODIUM CHLORIDE 0.9% INJ 100 ML IV SCH ×3 (00:14→16:12)
[2017-08-02] MEDS: HYDROCORTISONE SOD SUCCINATE 100 MG VIAL IV PUSH SCH ×2 (00:15→16:13)
[2017-08-02] MEDS: RESP: ALBUTEROL 2.5 MG/IPRATROPIUM 0.5 MG NEB (SCH) NEB ×4 (03:20→19:31)
[2017-08-02] MEDS: fentaNYL DRIP 250 ML IV PRN (03:23)
[2017-08-02] MEDS: PROPOFOL 1000 MG/100 ML INJ 100 ML IV PRN (03:24)
[2017-08-02] MEDS: LACTULOSE SYRUP 20 GM/30 ML CUP PO SCH ×4 (03:24→21:00)
[2017-08-02] MEDS: CHLORHEXIDINE GLUCONATE 2 % 1 PACK (2 CLOTHS) TOP SCH (04:00)
--- NOTE | 2017-08-02 05:11 | RADRPT ---
EXAM DATE/TIME: 08/02/2017 03:40 [facility] COMPARISON: CHEST SINGLE AP, August 01, 2017, 11:04. INDICATIONS : Shortness of breath, possible pulmonary disease. MEDICAL HISTORY : Cardiovascular disease. Chronic obstructive pulmonary disease. A-Fib SURGICAL HISTORY : None. ENCOUNTER: Subsequent ACUITY: 1 week PAIN SCORE: Non-responsive. LOCATION: Bilateral chest FINDINGS: A single portable frontal view of the chest shows a left pleural effusion and left lower lobe intra-a lveolar infiltrate. Right lung is clear. Right-sided central line. Tip of the endotracheal tube 2 cm proximal to melinda. Tip of the nasogastric tube in the region of the body the stomach. Infiltrate and effusion are new. CONCLUSION: Pleural effusion and left lower lobe infiltrate. Wade Garza Jr., MD on August 02, 2017 at 5:09 Board Certified Radiologist. This report was verified electronically.
[2017-08-02 05:14] LABS: BASOPHIL % 0.2 % (0.0-2.0); HEMATOCRIT 38.3 % (39.0-51.0); HEMO FLAGS DIFF FINAL; LYMPH % 13.6 % (9.0-44.0); LYMPHOCYTE # 1.8 TH/MM3 (1.0-4.8); MEAN CELL VOLUME 100.5 FL (80.0-100.0); MEAN CORPUSCULAR HEMOGLOBIN 35.5 PG (27.0-34.0); MEAN CORPUSCULAR HGB CONC 35.4 % (32.0-36.0); MONO % 9.7 % (0.0-8.0); NEUT % 76.5 % (16.0-70.0); PLATELET COUNT 108 TH/MM3 (150-450); RED BLOOD COUNT 3.82 MIL/MM3 (4.50-5.90); RED CELL DISTRIBUTION WIDTH 15.4 % (11.6-17.2)
[2017-08-02 05:31] LABS: ALKALINE PHOSPHATASE 60 U/L (45-117); ALT (GPT) 96 U/L (12-78); ANION GAP 9 MEQ/L (5-15); AST (GOT) 154 U/L (15-37); BICARBONATE 28.9 MEQ/L (21.0-32.0); BLOOD UREA NITROGEN 47 MG/DL (7-18); CHLORIDE 102 MEQ/L (98-107); CREATINE KINASE 245 U/L (39-308); GLOMERULAR FILTRATION RATE 72 ML/MIN (>89); MAGNESIUM 2.4 MG/DL (1.5-2.5); POTASSIUM 4.6 MEQ/L (3.5-5.1); SODIUM (NA) 140 MEQ/L (136-145)
[2017-08-02 05:39] LABS: APTT (PATIENT) 34.4 SEC (24.3-30.1); INTERNATIONAL NORMALIZED RATIO 1.7 RATIO; PROTHROMBIN TIME - PATIENT 19.8 SEC (9.8-11.6)
[2017-08-02] MEDS: RESP: BUDESONIDE 0.5 MG/2 ML NEB NEB SCH ×2 (07:51→19:31)
[2017-08-02] MEDS: INSULIN NovoLIN REGULAR SUPPLEMENTAL SCALE SQ SCH ×5 (08:00→20:00)
[2017-08-02] MEDS: SODIUM CHLORIDE 0.9% FLUSH 10 ML FLUSH IV FLUSH SCH (09:00)
[2017-08-02] MEDS: RIFAXIMIN 550 MG TAB PO SCH ×2 (10:16→22:09)
[2017-08-02] MEDS: LINEZOLID 600 MG TAB PO SCH ×2 (10:17→22:09)
[2017-08-02] MEDS: LACTOBACILLUS ACIDOPHILUS TAB PO SCH ×3 (10:17→18:00)
[2017-08-02] MEDS: LANSOPRAZOLE SOLUTAB 30 MG TAB NG SCH (10:17)
--- NOTE | 2017-08-02 11:38 | HHI.CCPN ---
Subjective Remarks/Hospital Course The patient is a 66-year-old male with past medical history of COPD, hepatitis C , atrial fibrillation who presented to [facility] ED after he was found down in his cell at a local group home. CPR was initiated prior to his apparent DNR being discovered. EMS arrived and they were able to get him back with transcutaneous pacing, however, during that time the patient wished to have everything done. He became unresponsive and was intubated in the field and he has been a transcutaneously paced. On arrival to the emergency room, the patient was bradycardic and hypotensive. He was seen by Dr. Paz and started on dopamine drip currently at 10 mcg. The patient was given Digibind empirically. however, his Digoxin level came back subtherapeutic at 0.3. His laboratory data significant for hyperkalemia with potassium level 6.7, creatinine of 1.21. The patient scheduled to receive 10 units IV insulin D50, calcium, sodium bicarb and kayexalate for treatment of his hyperkalemia. EKG showed junctional rhythm. Intraventricular conduction delay with a rate of 33 beats per minute. The chest x-ray in the ER showed ET tube approximately 1.5 cm above the melinda. No acute radiographic cardiopulmonary abnormalities identified. His troponin level was less than 0.02 with total CK of 80. The rest of the history is limited as the patient is intubated. 07/27: Patient remains sedated and intubated. On Dopamine 12 mics, Levophed 11 mics. K 5.5 this morning. Afebrile, transcutaneously paced. 10 No events overnight. Off sedation Levophed down 2 mics, Dopamine [address] brain yesterday no acute findings. 07/29 Patient remains intubated on no sedation. Off Levophed, dopamine down 3 mics. Afebrile. 07/30 No events overnight. Patient is off all pressors sedated with Fentanyl and intubated. Afebrile. 07/31 Patient remains intubated and sedated with Fentanyl. Afebrile. Repeat EEG yesterday showed severe encephalopathy with no seizure activity. 08/01: Currently afebrile. Tolerating tube feeds at goal. 7 BMs overnight. Patient is currently on 200 g an hour of fentanyl. Lurching out of bed but not following commands. Subjective 08/02: Patient placed on diltiazem drip and phenylephrine drip due to A. fib currently in sinus tachycardia. Tolerating tube feeds. Positive BM. Sedation vacation ongoing. Objective Vital Signs Date Time Temp Pulse Resp B/P (MAP) Pulse Ox O2 Delivery O2 Flow Rate FiO2 08/02/17 11:00 123 08/02/17 11:00 18 109/80 (90) 100 08/02/17 08:00 99.1 08/02/17 08:00 40 Intake and Output 08/02/17 08/02/17 08/02/17 07:59 15:59 23:59 Intake Total 745 ml 200 ml Output Total 890 ml Balance -145 ml 200 ml Result Diagram: 08/02/17 0445 08/02/17 0445 Other Results Microbiology Date/Time Source Procedure Growth Status 07/27/17 12:18 Blood Peripheral Aerobic Blood Culture - Final NO GROWTH IN 5 DAYS Complete 07/27/17 12:18 Blood Peripheral Anaerobic Blood Culture - Final NO GROWTH IN 5 DAYS Complete 07/28/17 04:00 Sputum Endotracheal Gram Stain - Final Complete 07/28/17 04:00 Sputum Culture - Final Escherichia Coli Esbl Positive Pseudomonas Aeruginosa Complete 07/31/17 08:45 Urine Catheterized Urine Urine Culture - Final NO GROWTH IN 48 HOURS. Complete Imaging Last Impressions Chest X-Ray 08/02/17 0600 Signed Impressions: Service Date/Time: Wednesday, August 02, 2017 03:40 - CONCLUSION: Pleural effusion and left lower lobe infiltrate. Wade Garza Jr., MD Liver Ultrasound 08/01/17 0000 Signed Impressions: Service Date/Time: Tuesday, August 01, 2017 15:52 - CONCLUSION: Stagnant/bidirectional flow in the portal venous system. Johnathan Hinton MD Abdomen Ultrasound 07/28/17 0000 Signed Impressions: Service Date/Time: Friday, July 28, 2017 08:20 - CONCLUSION: 1. Trace ascites Willian Parks MD Chest CT 07/27/17 0000 Signed Impressions: Service Date/Time: Thursday, July 27, 2017 11:09 - CONCLUSION: 1. There is a left-sided SVC present with a central line identified within the lumen and terminating within the region of the coronary sinus. 2. Moderate ascites with cirrhotic changes of the liver and multiple varices consistent with portal hypertension. 3. Probably positioned endotracheal tube and orogastric tube. 4. Moderate to severe centrilobular emphysematous change. Monika Sims MD Head CT 07/26/17 0000 Signed Impressions: Service Date/Time: Thursday, July 27, 2017 11:06 - CONCLUSION: 1. No acute intracranial abnormality. 2. There is a small amount of fluid in the posterior aspect of both maxillary sinuses. Jayden Olvera MD Objective Remarks GENERAL: 66-year-old male, currently orotracheally intubated SKIN: Warm and dry. Multiple ecchymotic spots bilateral lower extremities HEAD: Normocephalic. EYES: Pupils are around 1-2 mm bilaterally and minimally reactive. Slight scleral icterus. No injection or drainage. NECK: Supple, trachea midline. No JVD or lymphadenopathy.Intubated. CARDIOVASCULAR: Regular rate and rhythm no S4. Currently without murmurs, gallops, or rubs. RESPIRATORY: Coarse crackles appreciated bilateral lower lobes left greater than right. No wheezing GASTROINTESTINAL: Abdomen soft, non-tender, nondistended. Hypoactive bowel sounds appreciated MUSCULOSKELETAL: No significant peripheral edema. Neuro: Cranial nerves II through XII appear grossly intact. Positive gag. Positive corneal reflex. Moving outward from bed and moving all 4 extremity spontaneously but not to command. A/P Assessment and Plan Neuro/Psych: Toxic metabolic encephalopathy secondary to anoxia/hyperammonia On Fentanyl infusion 200 g an hour for sedation and propofol drip at 20 mics grams per kilo per for sedation/analgesia while intubated Goal RASS -2 Daily sedation vacation. Monitor neuro status . Neuro/Dr. Marte 07/27: CT brain: No acute findings. 07/28: EEG : Encephalopathy, repeat EEG 07/30: Severe encephalopathy, no seizure activity UDS: + Benzos. Pulm: Acute respiratory failure History of COPD/oxygen dependent 2 L at home PRVC 18/550/0.9/5/40 Ventilator bundle Albuterol ipratropium aerosols every 6 hours with albuterol aerosols every 2 hours as needed for dyspnea Spontaneous breathing trials as clinically indicated Continue with vent support and maintain sats >92%. CT chest: cirrhotic changes of the liver and multiple varices consistent with portal hypertension. Moderate to severe centrilobular emphysematous change. Continue records and 50 mg IV twice a day. Wean as tolerated At home on levobunolol aerosols every 4-6 hours with ciclesonide inhaled steroid daily CV: Sinus asad arrest. History of hypertension History of atrial fibrillation currently normal sinus rhythm Systolic heart failure likely chronic Lactic acidosis Monitor HR and BP maintain MAP >65 mmHg. s/p Digibind empirically in ED, Digoxin level: 0.3. Cards has following- Dr. Paz. No indication for pacemaker placement Currently on diltiazem drip at 5 mill grams hour and New-Synephrine at 40 per minute to maintain mean arterial pressure greater than 65 mmHg Echo showed EF 40-45% Holding home medications digoxin 0.125 mg daily, diltiazem 120 mg daily and propranolol 60 mg twice a day Recheck lactate in AM. Unclear etiology. Renal/: Monitor renal function, I/O's, electrolytes replacement as needed per ICU electrolyte protocol. GI: Hyperammonia -49 Severe protein calorie malnutrition albumin 1.7 History of hepatitis C Lansoprazole 30mg daily tube feeds- Glucerna 1.5 @ 50ml/hr per nutrition's recommendation Monitor LFT's, US liver: Cirrhosis of liver with trace ascites and possible occlusion of the portal vein. Gallstones. Check portal vein for thrombosis today with ultrasound Hepatitis profile pending Liver ultrasound Doppler - bidirectional flow. No signs of thrombus Continue rifaximin 550 mill grams twice a day and lactulose 30 cc every 6 hours. Recheck ammonia level in a.m. Holding Lasix 20 mg daily and Aldactone 50 mill grams twice a day ID: VRE Escherichia coli ESBL positive UTI Escherichia coli ESBL positive/Pseudomonas pneumonia On meropenem and linezolid, monitor for signs of infections ( Fever, WBC) ID is following. Check sputum cx, UA with cx if indicated 07/27 Urine cx: E.coli ESBL, VRE 07/27 BC: NGTD, 07/28 sputum: Pseudomonas, ESBL, E.coli Heme: Leukocytosis Macrocytic anemia Thrombocytopenia Monitor CBC following trends Endo: On Medium Novulin R SSI with accuchecks for glycemic control TSH: 1.89, FT4: 1.07, FT3: 1.22 FEN: Hyperkalemia - resolved Receiving D50/insulin, calcium gluconate, sodium bicarbonate and exit 15 g now. Recheck potassium in 3 hours. Lines: Right Rad Art line, Left subclavian CVP placed 07/26 to be discontinued today GI prophylaxis- Lansoprazole 30 mg daily DVT prophylaxis- SCD's, not on chemical AC prophylaxis due to thrombocytopenia Consult palliative care to asses with goals of care Critical Care: The total critical care time was 30 minutes. Time to perform other separately billable procedures was not included in the critical care time. Joseph Lopez MD Aug 02, 2017 11:38
[2017-08-03] VITALS (20 sets, daily range): BP systolic 100–117; BP diastolic 59–78; PULSE 122–132; RESP 18–42; TEMP 98.3–100.6; O2SAT 93–100
[2017-08-03] MEDS: LACTULOSE SYRUP 20 GM/30 ML CUP PO SCH ×4 (03:00→21:00)
[2017-08-03] MEDS: MEROPENEM INJ 1,000 MG in SODIUM CHLORIDE 0.9% INJ 100 ML IV SCH ×3 (03:26→17:39)
[2017-08-03 03:27] LABS: AUTOMATED NEUTROPHIL # 11.2 TH/MM3 (1.8-7.7); BASOPHIL % 0.3 % (0.0-2.0); HEMO FLAGS DIFF FINAL; LYMPHOCYTE # 1.4 TH/MM3 (1.0-4.8); MEAN CORPUSCULAR HEMOGLOBIN 35.2 PG (27.0-34.0); MEAN CORPUSCULAR HGB CONC 34.5 % (32.0-36.0); NEUT % 77.7 % (16.0-70.0); PLATELET COUNT 117 TH/MM3 (150-450); RED BLOOD COUNT 3.92 MIL/MM3 (4.50-5.90); RED CELL DISTRIBUTION WIDTH 15.4 % (11.6-17.2); WHITE BLOOD COUNT 14.4 TH/MM3 (4.0-11.0)
[2017-08-03] MEDS: HYDROCORTISONE SOD SUCCINATE 100 MG VIAL IV PUSH SCH ×2 (03:27→09:22)
[2017-08-03] MEDS: RESP: ALBUTEROL 2.5 MG/IPRATROPIUM 0.5 MG NEB (SCH) NEB ×4 (03:38→19:42)
[2017-08-03] MEDS: CHLORHEXIDINE GLUCONATE 2 % 1 PACK (2 CLOTHS) TOP SCH (03:55)
[2017-08-03] MEDS: DILTIAZEM INJ 125 MG in SODIUM CHLORIDE 0.9% INJ 100 ML IV PRN ×2 (03:57→19:59)
[2017-08-03] MEDS: INSULIN NovoLIN REGULAR SUPPLEMENTAL SCALE SQ SCH ×6 (04:00→20:00)
[2017-08-03] MEDS ORDERED: METOPROLOL TARTRATE 5 MG/5 ML VIAL IV PUSH ONE ×2 (05:15→08:30)
[2017-08-03] MEDS: ARTIFICIAL TEARS OPTH SOLN 15 ML BTL EACH EYE SCH ×3 (05:29→21:24)
[2017-08-03 06:33] LABS: ALT (GPT) 103 U/L (12-78); ANION GAP 10 MEQ/L (5-15); AST (GOT) 151 U/L (15-37); BICARBONATE 26.3 MEQ/L (21.0-32.0); BLOOD UREA NITROGEN 66 MG/DL (7-18); CHLORIDE 103 MEQ/L (98-107); GLOMERULAR FILTRATION RATE 46 ML/MIN (>89); MAGNESIUM 2.6 MG/DL (1.5-2.5); POTASSIUM 5.3 MEQ/L (3.5-5.1); SODIUM (NA) 139 MEQ/L (136-145)
[2017-08-03 06:35] LABS: ALKALINE PHOSPHATASE 69 U/L (45-117)
[2017-08-03] MEDS: RESP: BUDESONIDE 0.5 MG/2 ML NEB NEB SCH ×2 (07:21→19:42)
[2017-08-03] MEDS: LACTOBACILLUS ACIDOPHILUS TAB PO SCH ×3 (08:25→17:39)
[2017-08-03] MEDS: LINEZOLID 600 MG TAB PO SCH ×2 (08:26→21:24)
[2017-08-03] MEDS: LANSOPRAZOLE SOLUTAB 30 MG TAB NG SCH (08:26)
[2017-08-03] MEDS: RIFAXIMIN 550 MG TAB PO SCH ×2 (08:26→21:24)
[2017-08-03] MEDS: SODIUM CHLORIDE 0.9% FLUSH 10 ML FLUSH IV FLUSH SCH (08:27)
[2017-08-03] MEDS ORDERED: DILTIAZEM HCL 25 MG/5 ML VIAL IV ONE (08:30)
[2017-08-03] MEDS ORDERED: DIGOXIN 0.5 MG/2 ML VIAL IV PUSH ONE ×2 (08:30→16:15)
[2017-08-03] MEDS ORDERED: PHYTONADIONE 5 MG TAB PO ONE (09:00)
--- NOTE | 2017-08-03 09:05 | HHI.CCPN ---
Subjective Remarks/Hospital Course The patient is a 66-year-old male with past medical history of COPD, hepatitis C , atrial fibrillation who presented to [facility] ED after he was found down in his cell at a local detention. CPR was initiated prior to his apparent DNR being discovered. EMS arrived and they were able to get him back with transcutaneous pacing, however, during that time the patient wished to have everything done. He became unresponsive and was intubated in the field and he has been a transcutaneously paced. On arrival to the emergency room, the patient was bradycardic and hypotensive. He was seen by Dr. Paz and started on dopamine drip currently at 10 mcg. The patient was given Digibind empirically. however, his Digoxin level came back subtherapeutic at 0.3. His laboratory data significant for hyperkalemia with potassium level 6.7, creatinine of 1.21. The patient scheduled to receive 10 units IV insulin D50, calcium, sodium bicarb and kayexalate for treatment of his hyperkalemia. EKG showed junctional rhythm. Intraventricular conduction delay with a rate of 33 beats per minute. The chest x-ray in the ER showed ET tube approximately 1.5 cm above the melinda. No acute radiographic cardiopulmonary abnormalities identified. His troponin level was less than 0.02 with total CK of 80. The rest of the history is limited as the patient is intubated. 07/27: Patient remains sedated and intubated. On Dopamine 12 mics, Levophed 11 mics. K 5.5 this morning. Afebrile, transcutaneously paced. 07/28 No events overnight. Off sedation Levophed down 2 mics, Dopamine [address] brain yesterday no acute findings. 07/29 Patient remains intubated on no sedation. Off Levophed, dopamine down 3 mics. Afebrile. 07/30 No events overnight. Patient is off all pressors sedated with Fentanyl and intubated. Afebrile. 07/31 Patient remains intubated and sedated with Fentanyl. Afebrile. Repeat EEG yesterday showed severe encephalopathy with no seizure activity. 08/01: Currently afebrile. Tolerating tube feeds at goal. 7 BMs overnight. Patient is currently on 200 g an hour of fentanyl. Lurching out of bed but not following commands. 08/02: Patient placed on diltiazem drip and phenylephrine drip due to A. fib currently in sinus tachycardia. Tolerating tube feeds. Positive BM. Sedation vacation ongoing. Subjective 08/03: Continues on diltiazem drip at 50 mg an hour and low-dose phenylephrine at 40 g per minute drip due to current atrial flutter. Received 10 mg IV metoprolol and 20 mg IV diltiazem and heart rate currently 85-110. Creatinine increased overnight to 1.5. Decreased urine output noted. Elevated transaminases. Patient slowly going to multisystem organ failure. Noted per brother/healthcare proxy likely transition to comfort cares if continues to deteriorate by Friday. Objective Vital Signs Date Time Temp Pulse Resp B/P (MAP) Pulse Ox O2 Delivery O2 Flow Rate FiO2 08/03/17 08:52 96 40 08/03/17 06:00 127 08/03/17 04:00 100.6 19 112/78 (89) Intake and Output 08/03/17 08/03/17 08/04/17 08:00 16:00 00:00 Intake Total 1423.4 ml Output Total 225 ml Balance 1198.4 ml Result Diagram: 08/03/17 0308 08/03/17 0308 Other Results Microbiology Date/Time Source Procedure Growth Status 07/27/17 12:18 Blood Peripheral Aerobic Blood Culture - Final NO GROWTH IN 5 DAYS Complete 07/27/17 12:18 Blood Peripheral Anaerobic Blood Culture - Final NO GROWTH IN 5 DAYS Complete 07/28/17 04:00 Sputum Endotracheal Gram Stain - Final Complete 07/28/17 04:00 Sputum Culture - Final Escherichia Coli Esbl Positive Pseudomonas Aeruginosa Complete 07/31/17 08:45 Urine Catheterized Urine Urine Culture - Final NO GROWTH IN 48 HOURS. Complete Imaging Last Impressions Chest X-Ray 08/02/17 0600 Signed Impressions: Service Date/Time: Wednesday, August 02, 2017 03:40 - CONCLUSION: Pleural effusion and left lower lobe infiltrate. Wade Garza Jr., MD Liver Ultrasound 08/01/17 0000 Signed Impressions: Service Date/Time: Tuesday, August 01, 2017 15:52 - CONCLUSION: Stagnant/bidirectional flow in the portal venous system. Johnathan Hinton MD Abdomen Ultrasound 07/28/17 0000 Signed Impressions: Service Date/Time: Friday, July 28, 2017 08:20 - CONCLUSION: 1. Trace ascites Willian Parks MD Chest CT 07/27/17 0000 Signed Impressions: Service Date/Time: Thursday, July 27, 2017 11:09 - CONCLUSION: 1. There is a left-sided SVC present with a central line identified within the lumen and terminating within the region of the coronary sinus. 2. Moderate ascites with cirrhotic changes of the liver and multiple varices consistent with portal hypertension. 3. Probably positioned endotracheal tube and orogastric tube. 4. Moderate to severe centrilobular emphysematous change. Monika Sims MD Head CT 07/26/17 0000 Signed Impressions: Service Date/Time: Thursday, July 27, 2017 11:06 - CONCLUSION: 1. No acute intracranial abnormality. 2. There is a small amount of fluid in the posterior aspect of both maxillary sinuses. Jayden Olvera MD Objective Remarks GENERAL: 66-year-old male, currently orotracheally intubated SKIN: Warm and dry. Multiple ecchymotic spots bilateral upper and lower extremities a tattoo on left upper extremity HEAD: Normocephalic. EYES: Pupils are around 1-2 mm bilaterally and minimally reactive. Slight scleral icterus. Left greater than right No injection or drainage. NECK: Supple, trachea midline. No JVD or lymphadenopathy.Intubated. CARDIOVASCULAR: Tachycardia, IR. S1, S2. No S4.. Currently without murmurs, gallops, or rubs. RESPIRATORY: Coarse crackles appreciated bilateral lower lobes left greater than right. No wheezing GASTROINTESTINAL: Abdomen soft, non-tender, slightly protuberant. Hypoactive bowel sounds appreciated MUSCULOSKELETAL: With 1-2+ pitting edema bilateral upper and lower extremities. Neuro: Cranial nerves II through XII appear grossly intact. Positive gag. Positive corneal reflex. Moving outward/lunging from bed and moving all 4 extremity spontaneously but not to command. Upward toes ill actually Urinary Catheter: Yes Assessment to: Continue Hernandez insert reason: Prolonged Immobilization Vascular Central Line Catheter: Yes Assessment to: Continue Date of Insertion: Aug 02, 2017 Line: Central Venous Catheter Side: Right Location: Internal, Jugular A/P Assessment and Plan Neuro/Psych: Toxic metabolic encephalopathy secondary to anoxia/hyperammonia Overnight on Fentanyl infusion 200 g an hour for sedation and propofol drip at 20 mics grams per kilo per for sedation/analgesia while intubated Currently on sedation vacation with nonfocal examination Goal RASS -2 Daily sedation vacation. Monitor neuro status . Neuro/Dr. Marte 07/27: CT brain: No acute findings. 07/28: EEG : Encephalopathy, repeat EEG 07/30: Severe encephalopathy, no seizure activity UDS: + Benzos. Pulm: Acute respiratory failure History of COPD/oxygen dependent 2 L at home PRVC 18/550/0.9/5/40 Ventilator bundle Albuterol ipratropium aerosols every 6 hours with albuterol aerosols every 2 hours as needed for dyspnea Spontaneous breathing trials as clinically indicated Continue with vent support and maintain sats >92%. CT chest: cirrhotic changes of the liver and multiple varices consistent with portal hypertension. Moderate to severe centrilobular emphysematous change. Continue records and 50 mg IV twice a day. Wean as tolerated At home on levobunolol aerosols every 4-6 hours with ciclesonide inhaled steroid daily CV: Sinus asad arrest. History of hypertension History of atrial fibrillation currently in atrial flutter Systolic heart failure likely chronic Lactic acidosis Monitor HR and BP maintain MAP >65 mmHg. s/p Digibind empirically in ED, Digoxin level: 0.3. Cards has following- Dr. Paz. No indication for pacemaker placement Currently on diltiazem drip at 15 mill grams hour and New-Synephrine at 40 per minute to maintain mean arterial pressure greater than 65 mmHg Echo showed EF 40-45%. Global hypokinesis home medications digoxin 0.125 mg daily, diltiazem 120 mg daily and propranolol 60 mg twice a day Recheck lactate in AM. Unclear etiology. Giving 20 mg diltiazem and 10 mg Lopressor due to heart rate 130s. Currently at 85-110. [id number] score is 2. At moderate high risk for CVA however patient's INR is currently 1.7 elevated PTT and low fibrinogen.. Believe risk of anticoagulation outweighs benefits due to systemic bleeding. Patient previously not on systemic anticoagulation Renal//FEN: BPH Monitor renal function, I/O's, electrolytes replacement as needed per ICU electrolyte protocol. Continue tamsulosin 0.4 mill grams daily GI: Hyperammonia -49 -a.m. 08/03 pending Severe protein calorie malnutrition albumin 1.4 History of hepatitis C Elevated total bilirubin Lansoprazole 30mg daily tube feeds- Glucerna 1.5 @ 50ml/hr per nutrition's recommendation Monitor LFT's, US liver: Cirrhosis of liver with trace ascites and possible occlusion of the portal vein. Gallstones. Check portal vein for thrombosis today with ultrasound Hepatitis C genotype and viral load pending Liver ultrasound Doppler - bidirectional flow. No signs of thrombus Continue rifaximin 550 mill grams twice a day and lactulose 30 cc every 6 hours. Recheck ammonia level in a.m. Bilirubin components in AM. Holding furosemide 20 mg daily and spironolactone 50 mill grams twice a day ID: VRE Escherichia coli ESBL positive UTI Escherichia coli ESBL positive/Pseudomonas pneumonia On meropenem and linezolid, monitor for signs of infections ( Fever, WBC) ID is following. Check sputum cx, UA with cx if indicated 07/27 Urine cx: E.coli ESBL, VRE 07/27 BC: NGTD, 07/28 sputum: Pseudomonas, ESBL, E.coli Heme: Leukocytosis Macrocytic anemia Thrombocytopenia Elevated PT/INR and PTT Low fibrinogen Monitor CBC following trends Early DIC? Versus underlying liver failure Endo: On Medium Novulin R SSI with accuchecks for glycemic control TSH: 1.89, FT4: 1.07, FT3: 1.22 FEN: Hyperkalemia - Receiving D50/insulin, calcium gluconate, sodium bicarbonate. Recheck potassium in 3 hours. Lines: Right IJ CVL placed GI prophylaxis- Lansoprazole 30 mg daily DVT prophylaxis- SCD's, not on chemical AC prophylaxis due to thrombocytopenia and elevated INR/PTT Consult palliative care to asses with goals of care. Plan to likely transition to comfort care only 08/04 if continues to deteriorate clinically Critical Care: The total critical care time was 30 minutes. Time to perform other separately billable procedures was not included in the critical care time. Joseph Lopez MD Aug 03, 2017 09:05
[2017-08-03] MEDS ORDERED: INSULIN HUMAN REGULAR 1,000 UNITS/10 ML VIAL IV PUSH ONE (09:15)
[2017-08-03] MEDS ORDERED: ALBUMIN HUMAN 25% 25 GM/100 ML BAGP IV ONE (09:15)
[2017-08-03] MEDS ORDERED: DEXTROSE 50% IN WATER 50 ML VIAL(D50) IV PUSH ONE (09:15)
[2017-08-03] MEDS ORDERED: SODIUM CHLOR 0.9% 1000 ML INJ 1,000 ML IV ONE (09:15)
[2017-08-03] MEDS ORDERED: CALCIUM GLUCONATE 10% 1 GM/10 ML VIAL SLOW IVP ONE (09:15)
[2017-08-03] MEDS ORDERED: SODIUM BICARBONATE 8.4% SOLN 50 MEQ/50 ML VIAL SLOW IVP ONE (09:15)
[2017-08-03] MEDS: TAMSULOSIN HCL 0.4 MG CAP PO SCH (09:30)
[2017-08-03] MEDS: THIAMINE INJ 100 MG in SODIUM CHLORIDE 0.9% INJ 100 ML IV SCH (11:00)
[2017-08-03] MEDS ORDERED: SODIUM POLYSTYRENE SULFONATE SUSP 15 GM/60 ML CUP PO ONE (13:15)
--- NOTE | 2017-08-03 14:49 | HHI.PR ---
Review/Management Diagnosis/Plan: (1) Acute encephalopathy ICD Codes: G93.40 - Encephalopathy, unspecified Status: Acute Plan: 2/2 sepsis/hyperammonemia hypotension/ ? hypoxia apparently has confusion at care home and question of underlying dementia per rn at bedside/ has underlying liver cirrhosis recs neuro unchanged +brainstem reflexes but has cortical injury poor long-term prognosis with multiple medical morbidities (2) Respiratory failure ICD Codes: J96.90 - Respiratory failure, unspecified, unspecified whether with hypoxia or hypercapnia Plan: ccm watching intubated (3) Sepsis ICD Codes: A41.9 - Sepsis, unspecified organism Status: Acute (4) Cirrhosis of liver ICD Codes: K74.60 - Unspecified cirrhosis of liver Status: Chronic Subjective Subjective Comments No acute events reported Active Medications Current Medications Medications (Trade) Dose Ordered Sig/Ned Route Start Time Stop Time Status Last Admin Miscellaneous Information 1 [id number] XX 07/26/17 15:45 (Chlorhexidine 2% Cloth) Taper DAILY@04 TOP 07/27/17 04:00 07/23/18 03:59 08/01/17 00:54 (Chlorhexidine 2% Cloth) 3 pack UNSCH PRN TOP 07/26/17 15:45 (Milk Of Magnesia Liq) 30 ml Q12H PRN PO 07/26/17 15:45 (Dulcolax Supp) 10 mg DAILY PRN RECTAL 07/26/17 15:45 Fentanyl Citrate 250 ml @ 5 mls/hr TITRATE PRN IV 07/26/17 17:15 08/02/17 03:23 (D50w (Vial) Inj) 50 ml UNSCH PRN IV PUSH 07/27/17 09:00 (Glucagon Inj) 1 mg UNSCH PRN OTHER 07/27/17 09:00 (NovoLIN R SUPPLEMENTAL SCALE) 1 Q4HR SQ 07/27/17 09:00 08/03/17 12:00 Potassium Chloride 100 ml @ 50 mls/hr Q2H PRN IV 07/28/17 07:15 Potassium Chloride 100 ml @ 50 mls/hr Q2H PRN IV 07/28/17 07:15 (K-Lyte Cl Eff) 50 meq UNSCH PRN PO 07/28/17 07:15 Potassium Chloride 100 ml @ 25 mls/hr UNSCH PRN IV 07/28/17 07:15 Potassium Chloride 100 ml @ 50 mls/hr Q2H PRN IV 07/28/17 07:15 Magnesium Sulfate 4 gm/Sodium Chloride 100 ml @ 50 mls/hr UNSCH PRN IV 07/28/17 07:15 (Mag-Ox) 800 mg UNSCH PRN PO 07/28/17 07:15 Magnesium Sulfate 2 gm/Sodium Chloride 100 ml @ 50 mls/hr UNSCH PRN IV 07/28/17 07:15 (K-Phos) 2,000 mg Q4H PRN PO 07/28/17 07:15 Sodium Phosphate 30 mmol/Sodium Chloride 250 ml @ 42 mls/hr UNSCH PRN IV 07/28/17 07:15 07/28/17 13:59 (K-Phos) 2,000 mg UNSCH PRN PO/TUBE 07/28/17 07:15 Potassium Phosphate 30 mmol/ Sodium Chloride 260 ml @ 42 mls/hr UNSCH PRN IV 07/28/17 07:15 Meropenem 1000 mg/ Sodium Chloride 100 ml @ 200 mls/hr Q8H IV 07/29/17 17:00 08/03/17 08:26 (Xifaxan) 550 mg BID PO 07/30/17 09:00 08/03/17 08:26 (Lactulose Liq) 30 ml Q6H PO 07/31/17 15:00 08/02/17 03:24 (Tears Naturale Opth Soln) 1 drop Q8HR EACH EYE 08/01/17 14:00 08/03/17 12:56 (Duoneb Neb) 1 ampule Q6HR NEB NEB 08/01/17 10:00 08/03/17 14:10 (Albuterol Neb) 2.5 mg Q2HR NEB PRN NEB 08/01/17 10:00 (Prevacid Odt) 30 mg DAILY NG 08/01/17 09:00 08/03/17 08:26 (Pulmicort Respule Neb) 0.5 mg Q12HR NEB NEB 08/01/17 20:00 08/03/17 07:21 (Lactinex) 1 tab TID PO 08/01/17 13:00 08/03/17 12:56 (Zyvox) 600 mg Q12HR PO 08/01/17 21:00 08/03/17 08:26 Phenylephrine HCl 160 mg/Dextrose 500 ml @ 7.5 mls/hr TITRATE PRN IV 08/01/17 11:00 08/01/17 11:00 (Brethine Inj) 1 mg UNSCH PRN SQ 08/01/17 10:30 Diltiazem HCl 125 mg/Sodium Chloride 125 ml @ 5 mls/hr TITRATE PRN IV 08/01/17 11:00 08/03/17 03:57 Propofol 100 ml @ 2.244 mls/ hr TITRATE PRN IV 08/01/17 11:00 08/02/17 03:24 (NS Flush) DAILY IV FLUSH 08/02/17 09:00 08/03/17 08:27 (NS Flush) UNSCH PRN IV FLUSH 08/01/17 11:00 (Flomax) 0.4 mg DAILY PO 08/03/17 09:00 08/03/17 09:30 (SoluCORTEF INJ) 50 mg DAILY IV PUSH 08/03/17 09:00 08/06/17 08:59 08/03/17 09:22 Thiamine HCl 100 mg/Sodium Chloride 101 ml @ 101 mls/hr DAILY IV 08/03/17 11:00 08/03/17 11:00 (Lanoxin Inj) 0.25 mg ONCE ONCE IV PUSH 08/03/17 16:15 08/03/17 16:16 Allergies Allergies Coded Allergies No Known Allergies (Unverified07/26/17) Review of Systems All other ROS: Unable to obtain Exam I&O / VS Vital Signs Date Time Temp Pulse Resp B/P (MAP) Pulse Ox O2 Delivery O2 Flow Rate FiO2 08/03/17 12:38 97 40 08/03/17 12:00 126 08/03/17 12:00 98.6 126 18 117/69 (85) 96 08/03/17 12:00 40 08/03/17 11:38 97 40 08/03/17 10:00 126 08/03/17 08:52 96 40 08/03/17 08:00 98.3 129 18 109/72 (84) 97 08/03/17 08:00 40 08/03/17 08:00 129 08/03/17 06:00 127 08/03/17 04:17 99 40 08/03/17 04:00 100.6 132 19 112/78 (89) 98 10/8/17 04:00 40 08/03/17 04:00 132 08/03/17 03:57 132 100/75 08/03/17 03:56 132 99/72 08/03/17 02:00 132 08/03/17 01:10 100 40 08/03/17 00:00 100.0 130 42 107/76 (86) 99 08/03/17 00:00 40 08/03/17 00:00 130 08/02/17 23:48 129 105/77 08/02/17 22:01 98 40 08/02/17 22:00 130 08/02/17 20:00 99.8 129 11 109/66 (80) 95 08/02/17 20:00 40 08/02/17 20:00 129 08/02/17 20:00 129 08/02/17 19:30 129 08/02/17 19:00 128 08/02/17 19:00 128 98/68 08/02/17 18:36 128 08/02/17 18:34 128 08/02/17 18:30 129 08/02/17 18:00 128 08/02/17 17:59 91 40 08/02/17 16:00 40 08/02/17 16:00 127 08/02/17 16:00 127 8 102/70 (81) 93 08/02/17 15:45 93 40 08/02/17 15:45 40 08/02/17 15:34 94 40 08/02/17 15:31 127 17 104/75 (85) 94 08/02/17 15:31 127 08/02/17 15:00 127 08/02/17 15:00 127 16 114/84 (94) 94 Exam Comments intubated, eyes open, not following, on multiple gtt's, no blink to threat, grimaces to tactile, ou 3mm sluggish, + mild movement of all ext, no clonus, planter flexor Objective Micro and Labs Laboratory Tests Test 08/03/17 03:08 08/03/17 08:38 08/03/17 09:15 08/03/17 10:00 White Blood Count 14.4 Red Blood Count 3.92 Hemoglobin 13.8 Hematocrit 40.0 Mean Corpuscular Volume 102.0 Mean Corpuscular Hemoglobin 35.2 Mean Corpuscular Hemoglobin Concent 34.5 Red Cell Distribution Width 15.4 Platelet Count 117 Mean Platelet Volume 7.5 Neutrophils (%) (Auto) 77.7 Lymphocytes (%) (Auto) 10.0 Monocytes (%) (Auto) 12.0 Eosinophils (%) (Auto) 0.0 Basophils (%) (Auto) 0.3 Neutrophils # (Auto) 11.2 Lymphocytes # (Auto) 1.4 Monocytes # (Auto) 1.7 Eosinophils # (Auto) 0.0 Basophils # (Auto) 0.0 CBC Comment DIFF FINAL Differential Comment Blood Urea Nitrogen 66 Creatinine 1.53 Random Glucose 167 Total Protein 6.6 Albumin 1.4 Calcium Level 8.5 Phosphorus Level 3.5 Magnesium Level 2.6 Alkaline Phosphatase 69 Aspartate Amino Transf (AST/SGOT) 151 Alanine Aminotransferase (ALT/SGPT) 103 Total Bilirubin 7.0 Sodium Level 139 Potassium Level 5.3 Chloride Level 103 Carbon Dioxide Level 26.3 Anion Gap 10 Estimat Glomerular Filtration Rate 46 Ammonia 38 Urine Eosinophils NONE SEEN Urine Random Creatinine 92.3 Test 08/03/17 12:05 Potassium Level 5.1 Date/Time Source Procedure Growth Status 07/27/17 12:18 Blood Peripheral Aerobic Blood Culture - Final NO GROWTH IN 5 DAYS Complete 07/27/17 12:18 Blood Peripheral Anaerobic Blood Culture - Final NO GROWTH IN 5 DAYS Complete 07/28/17 04:00 Sputum Endotracheal Gram Stain - Final Complete 07/28/17 04:00 Sputum Culture - Final Escherichia Coli Esbl Positive Pseudomonas Aeruginosa Complete 07/31/17 08:45 Urine Catheterized Urine Urine Culture - Final NO GROWTH IN 48 HOURS. Complete Problem Qualifiers (1) Respiratory failure: (2) Cirrhosis of liver: Qualified Codes: K74.69 - Other cirrhosis of liver Vishal Marte MD Aug 03, 2017 14:49
[2017-08-04] VITALS (12 sets, daily range): BP systolic 67–103; BP diastolic 42–87; PULSE 74–136; RESP 18–19; TEMP 97.7–100.4; O2SAT 96–100
[2017-08-04] MEDS: MEROPENEM INJ 1,000 MG in SODIUM CHLORIDE 0.9% INJ 100 ML IV SCH ×2 (01:44→08:48)
[2017-08-04] MEDS: DILTIAZEM INJ 125 MG in SODIUM CHLORIDE 0.9% INJ 100 ML IV PRN (02:05)
[2017-08-04] MEDS: LACTULOSE SYRUP 20 GM/30 ML CUP PO SCH ×2 (03:00→08:48)
[2017-08-04] MEDS: RESP: ALBUTEROL 2.5 MG/IPRATROPIUM 0.5 MG NEB (SCH) NEB ×2 (03:42→07:41)
[2017-08-04] MEDS: INSULIN NovoLIN REGULAR SUPPLEMENTAL SCALE SQ SCH ×4 (04:00→12:00)
[2017-08-04] MEDS: CHLORHEXIDINE GLUCONATE 2 % 1 PACK (2 CLOTHS) TOP SCH (04:00)
[2017-08-04 04:51] LABS: AUTOMATED NEUTROPHIL # 12.8 TH/MM3 (1.8-7.7); BASOPHIL % 0.2 % (0.0-2.0); HEMATOCRIT 32.3 % (39.0-51.0); LYMPH % 10.5 % (9.0-44.0); LYMPHOCYTE # 1.6 TH/MM3 (1.0-4.8); MEAN CELL VOLUME 103.7 FL (80.0-100.0); MEAN CORPUSCULAR HEMOGLOBIN 35.5 PG (27.0-34.0); MEAN CORPUSCULAR HGB CONC 34.2 % (32.0-36.0); NEUT % 84.3 % (16.0-70.0); PLATELET COUNT 69 TH/MM3 (150-450); RED BLOOD COUNT 3.11 MIL/MM3 (4.50-5.90); RED CELL DISTRIBUTION WIDTH 15.2 % (11.6-17.2); WHITE BLOOD COUNT 15.1 TH/MM3 (4.0-11.0)
[2017-08-04 04:56] LABS: HEMO FLAGS AUTO DIFF
[2017-08-04 05:05] LABS: APTT (PATIENT) 39.8 SEC (24.3-30.1); INTERNATIONAL NORMALIZED RATIO 1.9 RATIO; PROTHROMBIN TIME - PATIENT 21.8 SEC (9.8-11.6)
[2017-08-04 05:17] LABS: ALT (GPT) 66 U/L (12-78); AMYLASE 51 U/L (25-115); ANION GAP 5 MEQ/L (5-15); AST (GOT) 87 U/L (15-37); BICARBONATE 31.7 MEQ/L (21.0-32.0); BLOOD UREA NITROGEN 70 MG/DL (7-18); CHLORIDE 105 MEQ/L (98-107); GLOMERULAR FILTRATION RATE 57 ML/MIN (>89); MAGNESIUM 2.7 MG/DL (1.5-2.5); POTASSIUM 4.8 MEQ/L (3.5-5.1); SODIUM (NA) 142 MEQ/L (136-145)
[2017-08-04 05:31] LABS: ALKALINE PHOSPHATASE 59 U/L (45-117); DIGOXIN 2.6 NG/ML (0.8-2.0); INDIRECT BILIRUBIN 4.2 MG/DL (0.0-0.8); TOTAL BILIRUBIN ADULT 8.7 MG/DL (0.2-1.0)
--- NOTE | 2017-08-04 05:52 | RADRPT ---
EXAM DATE/TIME: 08/04/2017 03:35 [facility] COMPARISON: CHEST SINGLE AP, August 02, 2017, 3:40. INDICATIONS : Shortness of breath, possible pulmonary disease. MEDICAL HISTORY : Cardiovascular disease. Chronic obstructive pulmonary disease. A-Fib SURGICAL HISTORY : None. ENCOUNTER: Subsequent ACUITY: 1 week PAIN SCORE: Non-responsive. LOCATION: Bilateral chest FINDINGS: Endotracheal tube and nasogastric tube remain in good position. Right central line is stable. There h as been slight improvement in left basilar pleuroparenchymal opacity. Slight interval worsening in ae ration at the right base. Cardiac contours are grossly stable. CONCLUSION: Slight improvement on the left and slight worsening of right base infiltrate Johnathan Hinton MD on August 04, 2017 at 5:50 Board Certified Radiologist. This report was verified electronically.
[2017-08-04] MEDS: ARTIFICIAL TEARS OPTH SOLN 15 ML BTL EACH EYE SCH ×2 (06:30→14:00)
[2017-08-04 06:55] LABS: PLATELET ESTIMATE SMEAR LOW (NORMAL); PLATELET MORPHOLOGY NORMAL (NORMAL); SCAN/DIFF AUTO DIFF CONFIRMED
[2017-08-04] MEDS: RESP: BUDESONIDE 0.5 MG/2 ML NEB NEB SCH (07:41)
[2017-08-04] MEDS: RIFAXIMIN 550 MG TAB PO SCH (08:48)
[2017-08-04] MEDS: LINEZOLID 600 MG TAB PO SCH (08:48)
[2017-08-04] MEDS: LANSOPRAZOLE SOLUTAB 30 MG TAB NG SCH (08:48)
[2017-08-04] MEDS: TAMSULOSIN HCL 0.4 MG CAP PO SCH (08:48)
[2017-08-04] MEDS: THIAMINE INJ 100 MG in SODIUM CHLORIDE 0.9% INJ 100 ML IV SCH (08:48)
[2017-08-04] MEDS: SODIUM CHLORIDE 0.9% FLUSH 10 ML FLUSH IV FLUSH SCH (08:48)
[2017-08-04] MEDS: LACTOBACILLUS ACIDOPHILUS TAB PO SCH ×2 (08:48→13:00)
[2017-08-04] MEDS: HYDROCORTISONE SOD SUCCINATE 100 MG VIAL IV PUSH SCH (08:49)
--- NOTE | 2017-08-04 09:51 | HHI.IDPN ---
Subjective Subjective Remarks Patient is a 66-year-old inmate brought into the hospital after he was found down in his cell. CPR was initially started, however he was found to be DNR, so it was stopped, but the patient had spontaneous return of his respirations. He was bradycardic and transcutaneous pacing was started and the patient brought into the hospital. While in route to the hospital, patient apparently stated that he wished to have everything done. He went into respiratory arrest , and intubated in the field. In the emergency room he was hypotensive, and bradycardic. Patient was seen by a feeder worker power unit operator, and his hemodynamics and cardiac status stabilized. Patient currently is off pressors. He remains on the vent, and on sedation. His urinalysis showed some pyuria, and the culture is growing Escherichia coli ESBL positive and VRE. His blood cultures are negative so far. His initial chest x-ray did not show any infiltrates. Patient also had elevated LFTs, and there is history of liver cirrhosis. He is afebrile. His WBC was elevated, and it's down to normal. Infectious disease consultation has been requested to make antibiotic recommendation. Notes reviewed D/W RN Temps low grade this weekend On the vent On pressors Palliative notes reviewed Family to decide by today regarding goals of care Repeat UC negative WBC higher CXR L better, R worse Antibiotics Meropenem Zyvox Lines LSC TLC Past Medical History Atrial fibrillation. Positive PPD with treatment. Hepatitis C. COPD. Lower extremity edema. Pancytopenia. Liver cirrhosis Allergies: Coded Allergies: No Known Allergies (Unverified , 07/26/17) Objective . Vital Signs Date Time Temp Pulse Resp B/P (MAP) Pulse Ox O2 Delivery O2 Flow Rate FiO2 08/04/17 07:41 100 40 08/04/17 06:00 134 08/04/17 04:38 97 40 08/04/17 04:00 40 08/04/17 04:00 98.5 132 18 103/59 (74) 96 08/04/17 04:00 132 08/04/17 02:05 76 98/54 08/04/17 02:04 92 101/53 08/04/17 02:00 74 08/04/17 01:12 96 40 08/04/17 00:00 40 08/04/17 00:00 97.7 117 18 102/87 (92) 100 08/04/17 00:00 117 08/03/17 22:06 99 40 08/03/17 22:00 130 08/03/17 20:00 129 08/03/17 20:00 40 08/03/17 20:00 99.6 129 18 106/63 (77) 100 08/03/17 19:59 129 106/63 08/03/17 19:58 129 106/63 08/03/17 19:35 97 40 08/03/17 18:00 126 08/03/17 17:20 97 40 08/03/17 16:00 126 08/03/17 16:00 40 08/03/17 16:00 98.8 126 22 100/59 (73) 93 08/03/17 14:00 122 08/03/17 12:38 97 40 08/03/17 12:00 126 08/03/17 12:00 98.6 126 18 117/69 (85) 96 08/03/17 12:00 40 08/03/17 11:38 97 40 08/03/17 10:00 126 . Laboratory Tests Test 08/03/17 03:08 08/04/17 04:35 White Blood Count 14.4 TH/MM3 15.1 TH/MM3 Red Blood Count 3.92 MIL/MM3 3.11 MIL/MM3 Hemoglobin 13.8 GM/DL 11.0 GM/DL Hematocrit 40.0 % 32.3 % Mean Corpuscular Volume 102.0 FL 103.7 FL Mean Corpuscular Hemoglobin 35.2 PG 35.5 PG Mean Corpuscular Hemoglobin Concent 34.5 % 34.2 % Red Cell Distribution Width 15.4 % 15.2 % Platelet Count 117 TH/MM3 69 TH/MM3 Mean Platelet Volume 7.5 FL 7.5 FL Neutrophils (%) (Auto) 77.7 % 84.3 % Lymphocytes (%) (Auto) 10.0 % 10.5 % Monocytes (%) (Auto) 12.0 % 5.0 % Eosinophils (%) (Auto) 0.0 % 0.0 % Basophils (%) (Auto) 0.3 % 0.2 % Neutrophils # (Auto) 11.2 TH/MM3 12.8 TH/MM3 Lymphocytes # (Auto) 1.4 TH/MM3 1.6 TH/MM3 Monocytes # (Auto) 1.7 TH/MM3 0.8 TH/MM3 Eosinophils # (Auto) 0.0 TH/MM3 0.0 TH/MM3 Basophils # (Auto) 0.0 TH/MM3 0.0 TH/MM3 CBC Comment DIFF FINAL AUTO DIFF Differential Comment AUTO DIFF CONFIRMED Platelet Estimate LOW Platelet Morphology Comment NORMAL Basophilic Stippling MOD Laboratory Tests Test 08/03/17 03:08 08/03/17 08:38 08/03/17 12:05 08/04/17 04:35 Blood Urea Nitrogen 66 MG/DL 70 MG/DL Creatinine 1.53 MG/DL 1.28 MG/DL Random Glucose 167 MG/DL 158 MG/DL Total Protein 6.6 GM/DL 6.1 GM/DL Albumin 1.4 GM/DL 2.4 GM/DL Calcium Level 8.5 MG/DL 9.0 MG/DL Phosphorus Level 3.5 MG/DL 2.9 MG/DL Magnesium Level 2.6 MG/DL 2.7 MG/DL Alkaline Phosphatase 69 U/L 59 U/L Aspartate Amino Transf (AST/SGOT) 151 U/L 87 U/L Alanine Aminotransferase (ALT/SGPT) 103 U/L 66 U/L Total Bilirubin 7.0 MG/DL 8.7 MG/DL Sodium Level 139 MEQ/L 142 MEQ/L Potassium Level 5.3 MEQ/L 5.1 MEQ/L 4.8 MEQ/L Chloride Level 103 MEQ/L 105 MEQ/L Carbon Dioxide Level 26.3 MEQ/L 31.7 MEQ/L Anion Gap 10 MEQ/L 5 MEQ/L Estimat Glomerular Filtration Rate 46 ML/MIN 57 ML/MIN Ammonia 38 MCMOL/L 25 MCMOL/L Direct Bilirubin 4.5 MG/DL Lactic Acid Level 5.5 mmol/L Indirect Bilirubin 4.2 MG/DL Amylase Level 51 U/L Lipase 174 U/L Imaging Chest X-Ray 08/04/17 06 Signed Impressions: Service Date/Time: Friday, August 04, 2017 03:35 - CONCLUSION: Slight improvement on the left and slight worsening of right base infiltrate Johnathan Hinton MD Chest X-Ray 08/02/17 0600 Signed Impressions: Service Date/Time: Wednesday, August 02, 2017 03:40 - CONCLUSION: Pleural effusion and left lower lobe infiltrate. Wade Garza Jr., MD Chest X-Ray 08/01/17 1055 Signed Impressions: Service Date/Time: Tuesday, August 01, 2017 11:04 - CONCLUSION: Satisfactory Central line positioning. Improving aeration Johnathan Hinton MD Last 48 hours Impressions Chest X-Ray 07/31/17 0000 Signed Impressions: Service Date/Time: July 08:01 - CONCLUSION: 1. Stable appearance of the left subclavian central venous catheter which again is noted to have an abnormal course. On the CT this was noted to terminate within the region of the coronary sinus. 2. New abnormal opacity at the left lung base which may represent infiltrate and/or effusion. This could represent pneumonia. Urbano Thibodeaux MD Abdomen Ultrasound 07/28/17 Signed Impressions: Service Date/Time: Friday, July 28, 2017 08:20 - CONCLUSION: 1. Trace ascites Willian Parks MD Liver Ultrasound 07/27/17 0000 Signed Impressions: Service Date/Time: Thursday, July 27, 2017 12:06 - CONCLUSION: Cirrhosis of liver with surrounding ascites and possible occlusion of the portal vein. Gallstones. Rafael Breaux MD Chest CT 07/27/17 0000 Signed Impressions: Service Date/Time: Thursday, July 27, 2017 11:09 - CONCLUSION: 1. There is a left-sided SVC present with a central line identified within the lumen and terminating within the region of the coronary sinus. 2. Moderate ascites with cirrhotic changes of the liver and multiple varices consistent with portal hypertension. 3. Probably positioned endotracheal tube and orogastric tube. 4. Moderate to severe centrilobular emphysematous change. Monika Sims MD Chest X-Ray 07/26/17 1404 Signed Impressions: Service Date/Time: Wednesday, July 26, 2017 14:49 - CONCLUSION: 1. ETT approximately 1.5 cm above the melinda. NGT in the stomach. 2. No acute radiographic cardiopulmonary abnormality. Jim Mckenna MD Head CT 07/26/17 0000 Signed Impressions: Service Date/Time: Thursday, July 27, 2017 11:06 - CONCLUSION: 1. No acute intracranial abnormality. 2. There is a small amount of fluid in the posterior aspect of both maxillary sinuses. Jayden Olvera MD Physical Exam GENERAL: Awake, not following commands, seems to be focusing, on the vent SKIN: Cool and dry. Has purpuric lesions on his upper chest. HEAD: Atraumatic. Normocephalic. No temporal wasting, or tenderness. EYES: [place] conjunctiva. No petechia or hemorrhage. Pupils equal, round pinpoint. Mild scleral icterus. No injection or drainage. EARS, NOSE AND THROAT: Nose without bleeding or purulent nasal discharge. Endotracheal tube in mouth NECK: Trachea midline. Supple and not tender, no meningeal signs CARDIOVASCULAR: Regular rate and rhythm. Soft heart sounds. No murmurs, rubs or gallops heard RESPIRATORY: Coarse breath sounds bilaterally. ABDOMEN: Soft, mildly distended, no reaction to palpation. Bowel sounds present and hypoactive. EXTREMITIES: No clubbing, cyanosis. Has mild L pedal edema. Both hands edematous. NEUROLOGICAL: Awake, not following. PSYCHIATRIC: Unable to assess LINE: No evidence of infection Assessment & Plan Remarks IMPRESSION UTI, C/S with E coli ESBL+ and VRE Sepsis, with shock, has leukocytosis and intermittent fevers S/P sinus asad arrest Respiratory failure PSAE/E coli ESBL PNA COPD findings seen on CT, has E coli ESBL and PSAE in sputum C/S - ?HCAP - CXR now with new opacity - G/S not impressive for presence of WBC Liver cirrhosis, portal vein thrombosis Known Hep C Hx (+) PPD, per record treated - no evidence of TB on CT Leukocytosis Diarrhea, C diff negative RECOMMENDATION Continue Merem Continue Zyvox - follow CBC Follow new C/S Follow CBC Monitor progress On pressors Family to decide goals of care Palliative medicine following D/W RN D/W Dr Mann ([facility]) Monse Thurman MD Aug 04, 2017 09:51
[2017-08-04] MEDS ORDERED: DILTIAZEM HCL 25 MG/5 ML VIAL IV ONE (11:15)
--- NOTE | 2017-08-04 11:29 | HHI.CCPN ---
Subjective Remarks/Hospital Course The patient is a 66-year-old male with past medical history of COPD, hepatitis C , atrial fibrillation who presented to [facility] ED after he was found down in his cell at a local senior living. CPR was initiated prior to his apparent DNR being discovered. EMS arrived and they were able to get him back with transcutaneous pacing, however, during that time the patient wished to have everything done. He became unresponsive and was intubated in the field and he has been a transcutaneously paced. On arrival to the emergency room, the patient was bradycardic and hypotensive. He was seen by Dr. Paz and started on dopamine drip currently at 10 mcg. The patient was given Digibind empirically. however, his Digoxin level came back subtherapeutic at 0.3. His laboratory data significant for hyperkalemia with potassium level 6.7, creatinine of 1.21. The patient scheduled to receive 10 units IV insulin D50, calcium, sodium bicarb and kayexalate for treatment of his hyperkalemia. EKG showed junctional rhythm. Intraventricular conduction delay with a rate of 33 beats per minute. The chest x-ray in the ER showed ET tube approximately 1.5 cm above the melinda. No acute radiographic cardiopulmonary abnormalities identified. His troponin level was less than 0.02 with total CK of 80. The rest of the history is limited as the patient is intubated. 07/27: Patient remains sedated and intubated. On Dopamine 12 mics, Levophed 11 mics. K 5.5 this morning. Afebrile, transcutaneously paced. 07/28 No events overnight. Off sedation Levophed down 2 mics, Dopamine [address] brain yesterday no acute findings. 07/29 Patient remains intubated on no sedation. Off Levophed, dopamine down 3 mics. Afebrile. 07/30 No events overnight. Patient is off all pressors sedated with Fentanyl and intubated. Afebrile. 07/31 Patient remains intubated and sedated with Fentanyl. Afebrile. Repeat EEG yesterday showed severe encephalopathy with no seizure activity. 08/01: Currently afebrile. Tolerating tube feeds at goal. 7 BMs overnight. Patient is currently on 200 g an hour of fentanyl. Lurching out of bed but not following commands. 08/02: Patient placed on diltiazem drip and phenylephrine drip due to A. fib currently in sinus tachycardia. Tolerating tube feeds. Positive BM. Sedation vacation ongoing. Subjective 08/03: Continues on diltiazem drip at 50 mg an hour and low-dose phenylephrine at 40 g per minute drip due to current atrial flutter. Received 10 mg IV metoprolol and 20 mg IV diltiazem and heart rate currently 85-110. Creatinine increased overnight to 1.5. Decreased urine output noted. Elevated transaminases. Patient slowly going to multisystem organ failure. Noted per brother/healthcare proxy likely transition to comfort cares if continues to deteriorate by Friday. 08/04: Patient remains intubated, off all sedation off 36 hours. New-synephrine at 40 mcg/min. isopropyl moves extremities spontaneously do not follow commands. Heart rate (A flutter) remains elevated on Cardizem. Will give 20 mg IV push of Cardizem in addition. Platelet count has dropped to 69. I will discontinue Zyvox Objective Vital Signs Date Time Temp Pulse Resp B/P (MAP) Pulse Ox O2 Delivery O2 Flow Rate FiO2 08/04/17 08:00 40 08/04/17 07:41 100 08/04/17 06:00 134 08/04/17 04:00 98.5 18 103/59 (74) Intake and Output 08/04/17 08/04/17 08/05/17 08:00 16:00 00:00 Intake Total 689 ml Output Total 570 ml Balance 119 ml Result Diagram: 08/04/17 0435 08/04/17 0435 Imaging Last Impressions Chest X-Ray 08/02/17 0600 Signed Impressions: Service Date/Time: Wednesday, August 02, 2017 03:40 - CONCLUSION: Pleural effusion and left lower lobe infiltrate. Wade Garza Jr., MD Liver Ultrasound 08/01/17 0000 Signed Impressions: Service Date/Time: Tuesday, August 01, 2017 15:52 - CONCLUSION: Stagnant/bidirectional flow in the portal venous system. Johnathan Hinton MD Abdomen Ultrasound 07/28/17 0000 Signed Impressions: Service Date/Time: Friday, July 28, 2017 08:20 - CONCLUSION: 1. Trace ascites Willian Parks MD Chest CT 07/27/17 0000 Signed Impressions: Service Date/Time: Thursday, July 27, 2017 11:09 - CONCLUSION: 1. There is a left-sided SVC present with a central line identified within the lumen and terminating within the region of the coronary sinus. 2. Moderate ascites with cirrhotic changes of the liver and multiple varices consistent with portal hypertension. 3. Probably positioned endotracheal tube and orogastric tube. 4. Moderate to severe centrilobular emphysematous change. Monika Sims MD Head CT 07/26/17 0000 Signed Impressions: Service Date/Time: Thursday, July 27, 2017 11:06 - CONCLUSION: 1. No acute intracranial abnormality. 2. There is a small amount of fluid in the posterior aspect of both maxillary sinuses. Jayden Olvera MD Objective Remarks GENERAL: 66-year-old male, currently orotracheally intubated SKIN: Warm and dry. Multiple ecchymotic spots bilateral upper and lower extremities a tattoo on left upper extremity HEAD: Normocephalic. EYES: Pupils are around 1-2 mm bilaterally and minimally reactive. Slight scleral icterus. Left greater than right NECK: Supple, trachea midline. No JVD or lymphadenopathy.Intubated. CARDIOVASCULAR: Tachycardia, IR. S1, S2. No S4 Currently without murmurs, gallops, or rubs. RESPIRATORY: Coarse crackles appreciated bilateral lower lobes left greater than right. No wheezing GASTROINTESTINAL: Abdomen soft, non-tender, slightly protuberant. Hypoactive bowel sounds appreciated MUSCULOSKELETAL: With 1-2+ pitting edema bilateral upper and lower extremities. Neuro: Eyes are open spontaneously Positive gag. Positive corneal reflex. Moving all 4 extremity spontaneously but not to command. Date of Insertion: Aug 02, 2017 Line: Central Venous Catheter Side: Right Location: Internal, Jugular A/P Assessment and Plan Neuro/Psych: Toxic metabolic encephalopathy secondary to anoxia/hyperammonemia Currently off all sedation for the last 36 hours per bedside RN Goal RASS -0 Discontinue all continuos sedation Neuro/Dr. Marte 07/27: CT brain: No acute findings. 07/28: EEG : Encephalopathy, repeat EEG 07/30: Severe encephalopathy, no seizure activity UDS: + Benzos. Check MRI of brain, if no clinical improvement in next 24 hours Pulm: Acute respiratory failure History of COPD/oxygen dependent 2 L at home PRVC 18/550/0.9/5/40. Ventilator bundle Albuterol ipratropium aerosols every 6 hours with albuterol aerosols every 2 hours as needed for dyspnea Spontaneous breathing trials as clinically indicated-mental status won't permit extubation Continue with vent support and maintain sats >90%. CT chest: cirrhotic changes of the liver and multiple varices consistent with portal hypertension. Moderate to severe centrilobular emphysematous change. At home on levobunolol aerosols every 4-6 hours with ciclesonide inhaled steroid daily Continue hydrocortisone 50 mg IV daily CV: Sinus asad arrest. Systolic heart failure likely chronic Lactic acidosis History of hypertension History of atrial fibrillation currently in atrial flutter Monitor HR and BP maintain MAP >65 mmHg. s/p Digibind empirically in ED, Digoxin level: 0.3. Cards has following- Dr. Paz. No indication for pacemaker placement Currently on diltiazem drip at 15 mill grams hour and New-Synephrine at 40 per minute to maintain mean arterial pressure greater than 65 mmHg Cardizem 20 mg IVP now Echo showed EF 40-45%. Global hypokinesis Home medications digoxin 0.125 mg daily, diltiazem 120 mg daily and propranolol 60 mg twice a day Recheck lactate in AM. Unclear etiology. Giving 20 mg diltiazem and 10 mg Lopressor due to heart rate 130s. Currently at 85-110. [id number] score is 2. At moderate high risk for CVA however patient's INR is currently 1.7 elevated PTT and low fibrinogen. Also platelet count has dropped to 69 Risk of anticoagulation outweighs benefits due to systemic bleeding. Patient previously not on systemic anticoagulation Renal//FEN: BPH Monitor renal function, I/O's, electrolytes replacement as needed per ICU electrolyte protocol. Continue tamsulosin 0.4 mill grams daily GI: Hyperammonia -49 -a.m. 08/03 23 Severe protein calorie malnutrition albumin 1.4 History of hepatitis C Elevated total bilirubin Lansoprazole 30mg daily. tube feeds- Glucerna 1.5 @ 50ml/hr per nutrition's recommendation Monitor LFT's, US liver: Cirrhosis of liver with trace ascites and possible occlusion of the portal vein. Gallstones. Hepatitis C genotype and viral load pending Liver ultrasound Doppler - bidirectional flow. No signs of thrombus Continue rifaximin 550 mill grams twice a day and lactulose 30 cc every 6 hours. Holding furosemide 20 mg daily and spironolactone 50 mill grams twice a day ID: VRE Escherichia coli ESBL positive UTI Escherichia coli ESBL positive/Pseudomonas pneumonia On meropenem and linezolid, monitor for signs of infections ( Fever, WBC) ID is following. DC Zyvox today 08/04/1707/27 Urine cx: E.coli ESBL, VRE 07/27 BC: NGTD, 07/28 sputum: Pseudomonas, ESBL, E.coli Heme: Leukocytosis Macrocytic anemia Thrombocytopenia Elevated PT/INR and PTT Low fibrinogen Monitor CBC following trends DIC vs Versus underlying liver failure Endo: On Medium Novulin R SSI with accuchecks for glycemic control TSH: 1.89, FT4: 1.07, FT3: 1.22 FEN: Hyperkalemia - Received D50/insulin, calcium gluconate, sodium bicarbonate. Lines: Right IJ CVL placed 08/12 GI prophylaxis- Lansoprazole 30 mg daily DVT prophylaxis- SCD's, not on chemical AC prophylaxis due to thrombocytopenia and elevated INR/PTT Consult palliative care to asses with goals of care. Critical Care: The total critical care time was 30 minutes. Time to perform other separately billable procedures was not included in the critical care time. Shaye Mann MD Aug 04, 2017 11:29
--- NOTE | 2017-08-04 13:19 | HHI.HCPN ---
Reason for visit a. To assist with evaluation and management of symptoms including: Pain, dyspnea, encephalopathy b. To assist medical decision maker(s) with: better understanding of current medical conditions; weighing benefits/burdens of medical treatment options; making medical treatment decisions. . Subjective/Interval History Patient seen and examined in ICU. No family at bedside. Discussed with nurse and Dr. Mann who felt we should monitor patient off sedation for another 24 hours. Family notified and agrees. Tmax 100.6. On neosyneprine. WBC 15.1. Platelets dropped to 69. Worsening liver function total bilirubin now 8.7. Lactic acid 5.5. Unresponsive off sedation for 36 hours. 07/31/17 urine culture no growth 24 hours. Chest x-ray worsening right base infiltrate. Neurology, Dr. Marte was consulted and indicates overall poor long-term prognosis with multiple medical comorbidities including underlying dementia and liver cirrhosis. Later call from Dr. Mann to report patient required cardioversion. He also had a conversation with Dr. Marte and both agree with overall poor prognosis for meaningful recovery. I was asked to call brother again to give update. Spoke with brother Gerhard who indicates patient would not want to live like this. He won't be able to come to [place]. He wants me to ensure patient will be comfortable. Anticipatory guidance provided for compassionate withdrawal of life support. He will call back with fax number. . Family/friend interactions Call to Gerhard mishra to provide update and clarify goals, see interval note. . Advance Directives Advance Directive Specifics Documented care wishes: No document care wishes are available at this time. . Significant change in goals: NO CODE. Plan for transition to comfort measures with withdrawal of life support later today. . Objective Vital Signs Date Time Temp Pulse Resp B/P (MAP) Pulse Ox O2 Delivery O2 Flow Rate FiO2 08/04/17 11:57 98 40 08/04/17 08:00 40 08/04/17 07:41 100 40 08/04/17 06:00 134 08/04/17 04:38 97 40 08/04/17 04:00 40 08/04/17 04:00 98.5 132 18 103/59 (74) 96 08/04/17 04:00 132 08/04/17 02:05 76 98/54 08/04/17 02:04 92 101/53 08/04/17 02:00 74 08/04/17 01:12 96 40 08/04/17 00:00 40 08/04/17 00:00 97.7 117 18 102/87 (92) 100 08/04/17 00:00 117 08/03/17 22:06 99 40 08/03/17 22:00 130 08/03/17 20:00 129 08/03/17 20:00 40 08/03/17 20:00 99.6 129 18 106/63 (77) 100 08/03/17 19:59 129 106/63 08/03/17 19:58 129 106/63 08/03/17 19:35 97 40 08/03/17 18:00 126 08/03/17 17:20 97 40 08/03/17 16:00 126 08/03/17 16:00 40 08/03/17 16:00 98.8 126 22 100/59 (73) 93 08/03/17 14:00 122 Intake & Output 08/04/17 08/04/17 07:00 19:00 Intake Total 789 ml Output Total 570 ml Balance 219 ml Intake IV Total 300 ml Tube Feeding 289 ml Tube Irrigant 200 ml Output Urine Total 570 ml # Bowel Movements 0 Physical Exam CONSTITUTIONAL/GENERAL: This is a 66-year-old male who appears older than his documented age, currently intubated on mechanical ventilator TUBES/LINES/DRAINS: ETT, OG, PIV, rectal tube and Hernandez. SKIN: + Purpura. Ecchymoses on upper extremities. Cool to touch. Not diaphoretic. EYES: Pupils round and equal, sluggish. No scleral icterus. No injection or drainage. CARDIOVASCULAR: Tachycardic, atrial flutter. RESPIRATORY/CHEST: Intubated on mechanical ventilator Breath sounds diminished bilaterally. GASTROINTESTINAL: Abdomen soft, non-tender, nondistended. Hypoactive bowel sounds. GENITOURINARY: Without palpable bladder distension. MUSCULOSKELETAL: Extremities with weeping edema bilateral UE. NEUROLOGICAL: Eyes open, not tracking, does not blink to threat. Spontaneous movement extremities, no purposeful movements. PSYCHIATRIC: Unresponsive. . Diagnostic Tests Laboratory Laboratory Tests Test 08/02/17 04:45 08/03/17 03:08 08/03/17 08:38 08/03/17 09:15 White Blood Count 13.0 TH/MM3 (4.0-11.0) 14.4 TH/MM3 (4.0-11.0) Red Blood Count 3.82 MIL/MM3 (4.50-5.90) 3.92 MIL/MM3 (4.50-5.90) Hemoglobin 13.6 GM/DL (13.0-17.0) 13.8 GM/DL (13.0-17.0) Hematocrit 38.3 % (39.0-51.0) 40.0 % (39.0-51.0) Mean Corpuscular Volume 100.5 FL (80.0-100.0) 102.0 FL (80.0-100.0) Mean Corpuscular Hemoglobin 35.5 PG (27.0-34.0) 35.2 PG (27.0-34.0) Mean Corpuscular Hemoglobin Concent 35.4 % (32.0-36.0) 34.5 % (32.0-36.0) Red Cell Distribution Width 15.4 % (11.6-17.2) 15.4 % (11.6-17.2) Platelet Count 108 TH/MM3 (150-450) 117 TH/MM3 (150-450) Mean Platelet Volume 7.6 FL (7.0-11.0) 7.5 FL (7.0-11.0) Neutrophils (%) (Auto) 76.5 % (16.0-70.0) 77.7 % (16.0-70.0) Lymphocytes (%) (Auto) 13.6 % (9.0-44.0) 10.0 % (9.0-44.0) Monocytes (%) (Auto) 9.7 % (0.0-8.0) 12.0 % (0.0-8.0) Eosinophils (%) (Auto) 0.0 % (0.0-4.0) 0.0 % (0.0-4.0) Basophils (%) (Auto) 0.2 % (0.0-2.0) 0.3 % (0.0-2.0) Neutrophils # (Auto) 10.0 TH/MM3 (1.8-7.7) 11.2 TH/MM3 (1.8-7.7) Lymphocytes # (Auto) 1.8 TH/MM3 (1.0-4.8) 1.4 TH/MM3 (1.0-4.8) Monocytes # (Auto) 1.3 TH/MM3 (0-0.9) 1.7 TH/MM3 (0-0.9) Eosinophils # (Auto) 0.0 TH/MM3 (0-0.4) 0.0 TH/MM3 (0-0.4) Basophils # (Auto) 0.0 TH/MM3 (0-0.2) 0.0 TH/MM3 (0-0.2) CBC Comment DIFF FINAL DIFF FINAL Differential Comment Prothrombin Time 19.8 SEC (9.8-11.6) Prothromb Time International Ratio 1.7 RATIO Activated Partial Thromboplast Time 34.4 SEC (24.3-30.1) Fibrinogen 146 mg/dL (227-377) Blood Urea Nitrogen 47 MG/DL (7-18) 66 MG/DL (7-18) Creatinine 1.04 MG/DL (0.60-1.30) 1.53 MG/DL (0.60-1.30) Random Glucose 116 MG/DL (74-106) 167 MG/DL (74-106) Total Protein 6.5 GM/DL (6.4-8.2) 6.6 GM/DL (6.4-8.2) Albumin 1.5 GM/DL (3.4-5.0) 1.4 GM/DL (3.4-5.0) Calcium Level 8.7 MG/DL (8.5-10.1) 8.5 MG/DL (8.5-10.1) Magnesium Level 2.4 MG/DL (1.5-2.5) 2.6 MG/DL (1.5-2.5) Alkaline Phosphatase 60 U/L (45-117) 69 U/L (45-117) Aspartate Amino Transf (AST/SGOT) 154 U/L (15-37) 151 U/L (15-37) Alanine Aminotransferase (ALT/SGPT) 96 U/L (12-78) 103 U/L (12-78) Total Bilirubin 6.0 MG/DL (0.2-1.0) 7.0 MG/DL (0.2-1.0) Sodium Level 140 MEQ/L (136-145) 139 MEQ/L (136-145) Potassium Level 4.6 MEQ/L (3.5-5.1) 5.3 MEQ/L (3.5-5.1) Chloride Level 102 MEQ/L (98-107) 103 MEQ/L (98-107) Carbon Dioxide Level 28.9 MEQ/L (21.0-32.0) 26.3 MEQ/L (21.0-32.0) Anion Gap 9 MEQ/L (5-15) 10 MEQ/L (5-15) Estimat Glomerular Filtration Rate 72 ML/MIN (>89) 46 ML/MIN (>89) Lactic Acid Level 5.7 mmol/L (0.4-2.0) Ammonia 49 MCMOL/L (11-32) 38 MCMOL/L (11-32) Total Creatine Kinase 245 U/L (39-308) Phenytoin (Dilantin) Level LESS THAN 0.4 MCG/ML Phosphorus Level 3.5 MG/DL (2.5-4.9) Urine Eosinophils NONE SEEN /HPF (NONE SEEN) Urine Random Creatinine 92.3 MG/DL Test 08/03/17 10:00 08/03/17 12:05 08/04/17 04:35 Potassium Level 5.1 MEQ/L (3.5-5.1) 4.8 MEQ/L (3.5-5.1) White Blood Count 15.1 TH/MM3 (4.0-11.0) Red Blood Count 3.11 MIL/MM3 (4.50-5.90) Hemoglobin 11.0 GM/DL (13.0-17.0) Hematocrit 32.3 % (39.0-51.0) Mean Corpuscular Volume 103.7 FL (80.0-100.0) Mean Corpuscular Hemoglobin 35.5 PG (27.0-34.0) Mean Corpuscular Hemoglobin Concent 34.2 % (32.0-36.0) Red Cell Distribution Width 15.2 % (11.6-17.2) Platelet Count 69 TH/MM3 (150-450) Mean Platelet Volume 7.5 FL (7.0-11.0) Neutrophils (%) (Auto) 84.3 % (16.0-70.0) Lymphocytes (%) (Auto) 10.5 % (9.0-44.0) Monocytes (%) (Auto) 5.0 % (0.0-8.0) Eosinophils (%) (Auto) 0.0 % (0.0-4.0) Basophils (%) (Auto) 0.2 % (0.0-2.0) Neutrophils # (Auto) 12.8 TH/MM3 (1.8-7.7) Lymphocytes # (Auto) 1.6 TH/MM3 (1.0-4.8) Monocytes # (Auto) 0.8 TH/MM3 (0-0.9) Eosinophils # (Auto) 0.0 TH/MM3 (0-0.4) Basophils # (Auto) 0.0 TH/MM3 (0-0.2) CBC Comment AUTO DIFF Differential Comment AUTO DIFF CONFIRMED Platelet Estimate LOW (NORMAL) Platelet Morphology Comment NORMAL (NORMAL) Basophilic Stippling MOD (NORMAL) Prothrombin Time 21.8 SEC (9.8-11.6) Prothromb Time International Ratio 1.9 RATIO Activated Partial Thromboplast Time 39.8 SEC (24.3-30.1) Fibrinogen 101 mg/dL (227-377) Blood Urea Nitrogen 70 MG/DL (7-18) Creatinine 1.28 MG/DL (0.60-1.30) Random Glucose 158 MG/DL (74-106) Total Protein 6.1 GM/DL (6.4-8.2) Albumin 2.4 GM/DL (3.4-5.0) Calcium Level 9.0 MG/DL (8.5-10.1) Phosphorus Level 2.9 MG/DL (2.5-4.9) Magnesium Level 2.7 MG/DL (1.5-2.5) Alkaline Phosphatase 59 U/L (45-117) Aspartate Amino Transf (AST/SGOT) 87 U/L (15-37) Alanine Aminotransferase (ALT/SGPT) 66 U/L (12-78) Total Bilirubin 8.7 MG/DL (0.2-1.0) Direct Bilirubin 4.5 MG/DL (0.0-0.2) Sodium Level 142 MEQ/L (136-145) Chloride Level 105 MEQ/L (98-107) Carbon Dioxide Level 31.7 MEQ/L (21.0-32.0) Anion Gap 5 MEQ/L (5-15) Estimat Glomerular Filtration Rate 57 ML/MIN (>89) Lactic Acid Level 5.5 mmol/L (0.4-2.0) Indirect Bilirubin 4.2 MG/DL (0.0-0.8) Ammonia 25 MCMOL/L (11-32) Amylase Level 51 U/L (25-115) Lipase 174 U/L (73-393) Digoxin Level 2.6 NG/ML (0.8-2.0) Result Diagram: 08/04/17 0435 08/04/17 0435 Microbiology Microbiology Date/Time Source Procedure Growth Status 07/27/17 12:18 Blood Peripheral Aerobic Blood Culture - Final NO GROWTH IN 5 DAYS Complete 07/27/17 12:18 Blood Peripheral Anaerobic Blood Culture - Final NO GROWTH IN 5 DAYS Complete 07/28/17 04:00 Sputum Endotracheal Gram Stain - Final Complete 07/28/17 04:00 Sputum Culture - Final Escherichia Coli Esbl Positive Pseudomonas Aeruginosa Complete 07/31/17 08:45 Urine Catheterized Urine Urine Culture - Final NO GROWTH IN 48 HOURS. Complete Imaging Last Impressions Chest X-Ray 08/04/17 0600 Signed Impressions: Service Date/Time: Friday, August 04, 2017 03:35 - CONCLUSION: Slight improvement on the left and slight worsening of right base infiltrate Johnathan Hinton MD Liver Ultrasound 08/01/17 0000 Signed Impressions: Service Date/Time: Tuesday, August 01, 2017 15:52 - CONCLUSION: Stagnant/bidirectional flow in the portal venous system. Johnathan Hinton MD Abdomen Ultrasound 07/28/17 0000 Signed Impressions: Service Date/Time: Friday, July 28, 2017 08:20 - CONCLUSION: 1. Trace ascites Willian Parks MD Chest CT 07/27/17 0000 Signed Impressions: Service Date/Time: Thursday, July 27, 2017 11:09 - CONCLUSION: 1. There is a left-sided SVC present with a central line identified within the lumen and terminating within the region of the coronary sinus. 2. Moderate ascites with cirrhotic changes of the liver and multiple varices consistent with portal hypertension. 3. Probably positioned endotracheal tube and orogastric tube. 4. Moderate to severe centrilobular emphysematous change. Monika Sims MD Head CT 07/26/17 0000 Signed Impressions: Service Date/Time: Thursday, July 27, 2017 11:06 - CONCLUSION: 1. No acute intracranial abnormality. 2. There is a small amount of fluid in the posterior aspect of both maxillary sinuses. Jayden Olvera MD Procedures 07/26/2017: Intubation 07/26/2017: NGT placed 07/26/2017: Left subclavian central line placement . Assessment and Plan Disease Oriented Problem List: (1) Hyperkalemia (2) Symptomatic bradycardia (3) Sepsis (4) Acute encephalopathy Symptom Scale: (1) Encephalopathy 0-10 Scale: Unable to quantify (2) Dyspnea 0-10 Scale: Unable to quantify (3) Pain 0-10 Scale: Unable to quantify Pertinent Non-Medical Issues Psychosocial:Per patient's brother (Gerhard). Patient is originally from [place]. He has 2 older brothers. Mikey lives in [place] and is apparently in poor health. Gerhard lives in [place]. The patient worked as a truck rental service attendant. Apparently, the patient has been incarcerated since 1992. Spiritual: Pending further discussion with patient's family Legal: Per [place] statutes, in the absence of written advanced directives healthcare proxy decision-making falls to the patient's 2 brothers. Gerhard states he is the designated health care surrogate; he states the [facility] has documentation that designates him as the healthcare surrogate decision maker. Ethical issues impacting care: No known ethical issues impacting care at this time. . Important Contacts Gerhard Hollis, brother: [phone] . Prognosis Patient is a 66-year-old inmate who was found unresponsive in his cell. CPR was initiated although it was later determined the patient had a DNR in place. Patient is currently sedated and intubated on mechanical ventilator, being transcutaneously paced. Infectious disease following as well. Patient with severe encephalopathy. The patient may not survive this hospitalization; if he does survive this hospitalization he will likely be at risk for ongoing decline and complications. Overall prognosis is poor for meaningful recovery. . Code Status: No Code Plan * Decision-making: Patient is currently incapacitated to make his own decisions , unlikely to regain capacity. No written advance directives have been located. According to [place] statutes, health care proxy decision-making would fall to majority of siblings. Patient has 2 brothers. Brother Mikey Hollis has opted out of decision making. Brother Gerhard Hollis has agreed to serve as healthcare proxy decision maker. * NO CODE * Goals: Gerhard, brother/HCP updated via phone. He understands poor prognosis for meaningful recovery and is certain patient would not want to live like this. Plan for transition to comfort measures with withdrawal of life support likely later today. * Exhibits B & C signed by brother, [facility] arrival to [facility] unit to write orders for withdrawal of life support. * Spoke with Mrs. Cullen and Nubia, medical care manager of [facility] system to provide update. * Symptom management - Encephalopathy: EEG on 07/28/17 showing encephalopathy possibly secondary to sepsis/hyperammonemia/hypotension/hypoxia. Apparently patient has some confusion at baseline, questionable underlying dementia. Follow -up EEG on 07/30/2017 showing severe encephalopathy with no seizure activity. NeurologyDe. Marte indicates poor prognosis. No purposeful movements. * Symptom management - Dyspnea: Patient remains intubated on mechanical ventilator. * Symptom management - Pain: Patient currently on fentanyl. Showing no nonverbal signs or symptoms of pain on examination. No new medication recommendations at this time. * Palliative care will continue to follow this patient throughout his hospitalization to establish trust, assist with symptom management and clarification of medical treatment goals. . . Attestation To help prompt me to consider important information that might be impacting today's encounter and assessment, information from prior notes written by myself or my colleagues may have been "brought forward" into today's note. My signature on this note, however, is an attestation that I personally performed the exam, history, and/or decision-making noted today, and, unless otherwise indicated, the interactions with patient, family, and staff as well as the review of records all occurred today. I also attest that the listed assessment and stated plan reflect my best clinical judgment today based on the combination of historical information, prior notes, and today's exam/ interactions. When time spent is documented, it refers only to time spent today by the signer, or if indicated, combined time spent today by collaborating physician/nurse practitioner. Margarita Rock Aug 04, 2017 13:19
[2017-08-04] MEDS ORDERED: RESP: ALBUTEROL 2.5 MG/IPRATROPIUM 0.5 MG NEB (SCH) NEB (16:00)
--- NOTE | 2017-08-04 18:31 | DEATH SUM ---
Summary Demographics Date Pronounced : Aug 04, 2017 Time Of : 1450 Pronounced By: Dr. Mann Preliminary Cause of : Cardiac arrest Shaye Mann MD Aug 04, 2017 18:31
--- NOTE | 2017-08-04 18:34 | HHI.DS ---
Summary Note Date of : Aug 04, 2017 Time Of : 1450 Admission Date Jul 26, 2017 at 16:43 Admitting Diagnosis bradycardia, hypotension, hyperkalemia Diagnosis at Time of : (1) Cardiac arrest ICD Code: I46.9 - Cardiac arrest, cause unspecified Diagnosis: Principal (2) Asystole ICD Code: I46.9 - Cardiac arrest, cause unspecified Diagnosis: Principal (3) Septic and cardiogenic shock Diagnosis: Principal (4) Respiratory failure ICD Code: J96.90 - Respiratory failure, unspecified, unspecified whether with hypoxia or hypercapnia Diagnosis: Principal (5) Acute encephalopathy ICD Code: G93.40 - Encephalopathy, unspecified Diagnosis: Principal (6) Cirrhosis of liver ICD Code: K74.60 - Unspecified cirrhosis of liver Diagnosis: Secondary Brief History The patient is a 66-year-old male with past medical history of COPD, hepatitis C , atrial fibrillation who presented to [facility] ED after he was found down in his cell at a local shelter. CPR was initiated prior to his apparent DNR being discovered. EMS arrived and they were able to get him back with transcutaneous pacing, however, during that time the patient wished to have everything done. He became unresponsive and was intubated in the field and he has been a transcutaneously paced. On arrival to the emergency room, the patient was bradycardic and hypotensive. He was seen by Dr. Paz and started on dopamine drip currently at 10 mcg. The patient was given Digibind empirically. however, his Digoxin level came back subtherapeutic at 0.3. His laboratory data significant for hyperkalemia with potassium level 6.7, creatinine of 1.21. The patient scheduled to receive 10 units IV insulin D50, calcium, sodium bicarb and kayexalate for treatment of his hyperkalemia. EKG showed junctional rhythm. Intraventricular conduction delay with a rate of 33 beats per minute. The chest x-ray in the ER showed ET tube approximately 1.5 cm above the melinda. No acute radiographic cardiopulmonary abnormalities identified. His troponin level was less than 0.02 with total CK of 80. The rest of the history is limited as the patient is intubated. CBC/BMP: 08/04/17 0435 08/04/17 0435 Significant Findings Laboratory Tests Test 08/02/17 04:45 08/03/17 03:08 08/03/17 08:38 08/03/17 09:15 White Blood Count 13.0 TH/MM3 (4.0-11.0) 14.4 TH/MM3 (4.0-11.0) Red Blood Count 3.82 MIL/MM3 (4.50-5.90) 3.92 MIL/MM3 (4.50-5.90) Hematocrit 38.3 % (39.0-51.0) Mean Corpuscular Volume 100.5 FL (80.0-100.0) 102.0 FL (80.0-100.0) Mean Corpuscular Hemoglobin 35.5 PG (27.0-34.0) 35.2 PG (27.0-34.0) Platelet Count 108 TH/MM3 (150-450) 117 TH/MM3 (150-450) Neutrophils (%) (Auto) 76.5 % (16.0-70.0) 77.7 % (16.0-70.0) Monocytes (%) (Auto) 9.7 % (0.0-8.0) 12.0 % (0.0-8.0) Neutrophils # (Auto) 10.0 TH/MM3 (1.8-7.7) 11.2 TH/MM3 (1.8-7.7) Monocytes # (Auto) 1.3 TH/MM3 (0-0.9) 1.7 TH/MM3 (0-0.9) Prothrombin Time 19.8 SEC (9.8-11.6) Activated Partial Thromboplast Time 34.4 SEC (24.3-30.1) Fibrinogen 146 mg/dL (227-377) Blood Urea Nitrogen 47 MG/DL (7-18) 66 MG/DL (7-18) Random Glucose 116 MG/DL (74-106) 167 MG/DL (74-106) Albumin 1.5 GM/DL (3.4-5.0) 1.4 GM/DL (3.4-5.0) Aspartate Amino Transf (AST/SGOT) 154 U/L (15-37) 151 U/L (15-37) Alanine Aminotransferase (ALT/SGPT) 96 U/L (12-78) 103 U/L (12-78) Total Bilirubin 6.0 MG/DL (0.2-1.0) 7.0 MG/DL (0.2-1.0) Estimat Glomerular Filtration Rate 72 ML/MIN (>89) 46 ML/MIN (>89) Lactic Acid Level 5.7 mmol/L (0.4-2.0) Ammonia 49 MCMOL/L (11-32) 38 MCMOL/L (11-32) Phenytoin (Dilantin) Level LESS THAN 0.4 MCG/ML Creatinine 1.53 MG/DL (0.60-1.30) Magnesium Level 2.6 MG/DL (1.5-2.5) Potassium Level 5.3 MEQ/L (3.5-5.1) Test 08/03/17 10:00 08/03/17 12:05 08/04/17 04:35 White Blood Count 15.1 TH/MM3 (4.0-11.0) Red Blood Count 3.11 MIL/MM3 (4.50-5.90) Hemoglobin 11.0 GM/DL (13.0-17.0) Hematocrit 32.3 % (39.0-51.0) Mean Corpuscular Volume 103.7 FL (80.0-100.0) Mean Corpuscular Hemoglobin 35.5 PG (27.0-34.0) Platelet Count 69 TH/MM3 (150-450) Neutrophils (%) (Auto) 84.3 % (16.0-70.0) Neutrophils # (Auto) 12.8 TH/MM3 (1.8-7.7) Platelet Estimate LOW (NORMAL) Basophilic Stippling MOD (NORMAL) Prothrombin Time 21.8 SEC (9.8-11.6) Activated Partial Thromboplast Time 39.8 SEC (24.3-30.1) Fibrinogen 101 mg/dL (227-377) Blood Urea Nitrogen 70 MG/DL (7-18) Random Glucose 158 MG/DL (74-106) Total Protein 6.1 GM/DL (6.4-8.2) Albumin 2.4 GM/DL (3.4-5.0) Magnesium Level 2.7 MG/DL (1.5-2.5) Aspartate Amino Transf (AST/SGOT) 87 U/L (15-37) Total Bilirubin 8.7 MG/DL (0.2-1.0) Direct Bilirubin 4.5 MG/DL (0.0-0.2) Estimat Glomerular Filtration Rate 57 ML/MIN (>89) Lactic Acid Level 5.5 mmol/L (0.4-2.0) Indirect Bilirubin 4.2 MG/DL (0.0-0.8) Digoxin Level 2.6 NG/ML (0.8-2.0) Imaging Last Impressions Chest X-Ray 08/02/17 0600 Signed Impressions: Service Date/Time: Wednesday, August 02, 2017 03:40 - CONCLUSION: Pleural effusion and left lower lobe infiltrate. Wade Garza Jr., MD Liver Ultrasound 08/01/17 0000 Signed Impressions: Service Date/Time: Tuesday, August 01, 2017 15:52 - CONCLUSION: Stagnant/bidirectional flow in the portal venous system. Johnathan Hinton MD Abdomen Ultrasound 07/28/17 0000 Signed Impressions: Service Date/Time: Friday, July 28, 2017 08:20 - CONCLUSION: 1. Trace ascites Willian Parks MD Chest CT 07/27/17 0000 Signed Impressions: Service Date/Time: Thursday, July 27, 2017 11:09 - CONCLUSION: 1. There is a left-sided SVC present with a central line identified within the lumen and terminating within the region of the coronary sinus. 2. Moderate ascites with cirrhotic changes of the liver and multiple varices consistent with portal hypertension. 3. Probably positioned endotracheal tube and orogastric tube. 4. Moderate to severe centrilobular emphysematous change. Monika Sims MD Head CT 07/26/17 0000 Signed Impressions: Service Date/Time: Thursday, July 27, 2017 11:06 - CONCLUSION: 1. No acute intracranial abnormality. 2. There is a small amount of fluid in the posterior aspect of both maxillary sinuses. Jayden Olvera MD Hospital Course The patient is a 66-year-old male with past medical history of COPD, hepatitis C , atrial fibrillation who presented to [facility] ED after he was found down in his cell at a local shelter. CPR was initiated prior to his apparent DNR being discovered. EMS arrived and they were able to get him back with transcutaneous pacing, however, during that time the patient wished to have everything done. He became unresponsive and was intubated in the field and he has been a transcutaneously paced. On arrival to the emergency room, the patient was bradycardic and hypotensive. He was seen by Dr. Paz and started on dopamine drip currently at 10 mcg. The patient was given Digibind empirically. however, his Digoxin level came back subtherapeutic at 0.3. His laboratory data significant for hyperkalemia with potassium level 6.7, creatinine of 1.21. The patient scheduled to receive 10 units IV insulin D50, calcium, sodium bicarb and kayexalate for treatment of his hyperkalemia. EKG showed junctional rhythm. Intraventricular conduction delay with a rate of 33 beats per minute. The chest x-ray in the ER showed ET tube approximately 1.5 cm above the melinda. No acute radiographic cardiopulmonary abnormalities identified. His troponin level was less than 0.02 with total CK of 80. The rest of the history is limited as the patient is intubated. 07/27: Patient remains sedated and intubated. On Dopamine 12 mics, Levophed 11 mics. K 5.5 this morning. Afebrile, transcutaneously paced. 07/28 No events overnight. Off sedation Levophed down 2 mics, Dopamine [address] brain yesterday no acute findings. 07/29 Patient remains intubated on no sedation. Off Levophed, dopamine down 3 mics. Afebrile. 07/30 No events overnight. Patient is off all pressors sedated with Fentanyl and intubated. Afebrile. 07/31 Patient remains intubated and sedated with Fentanyl. Afebrile. Repeat EEG yesterday showed severe encephalopathy with no seizure activity. 08/01: Currently afebrile. Tolerating tube feeds at goal. 7 BMs overnight. Patient is currently on 200 g an hour of fentanyl. Lurching out of bed but not following commands. 08/02: Patient placed on diltiazem drip and phenylephrine drip due to A. fib currently in sinus tachycardia. Tolerating tube feeds. Positive BM. Sedation vacation ongoing. 08/03: Continues on diltiazem drip at 50 mg an hour and low-dose phenylephrine at 40 g per minute drip due to current atrial flutter. Received 10 mg IV metoprolol and 20 mg IV diltiazem and heart rate currently 85-110. Creatinine increased overnight to 1.5. Decreased urine output noted. Elevated transaminases. Patient slowly going to multisystem organ failure. Noted per brother/healthcare proxy likely transition to comfort cares if continues to deteriorate by Friday. 08/04: Patient remains intubated, off all sedation off 36 hours. New-synephrine at 40 mcg/min. isopropyl moves extremities spontaneously do not follow commands. Heart rate (A flutter) remains elevated on Cardizem. Will give 20 mg IV push of Cardizem in addition. Platelet count has dropped to 69. I will discontinue Zyvox. I was called to the bedside later for acute deterioration in the patient's clinical condition. Profoundly hypotensive systolic blood pressure in 70s heart rate in 140s a flutter with 2-1 block. New-Synephrine was increased to 300 mcg/m, 1 L normal saline fluid bolus given., DC cardioversion was performed with 50 J. Patient converted to sinus rhythm but tachycardic. Temporarily blood pressure improved, but became hypotensive again. Patient is showing agonal breathing. Discussed with palliative care who will contact family. Patient continued to deteriorate, developed cardiac arrest and pronounced at 1450 on 08/04/17 Shaye Mann MD Aug 04, 2017 18:34
[2017-08-06 11:53] LABS: HCV RNA PCR IU/ML 1690000 IU/mL (0-14); HCV RNA PCR LOGIU/ML 6.23 (0-1.18)
[2017-08-06 17:52] LABS: HEPATITIS C RNA GENOTYPE 1a (NOT DETECTD)
== END 2017-08-04 14:50 | disposition expired | DRG 207 ==
LOC: NEPC 13:58 → NEDA 16:43 → HIMW 16:50
PROVIDERS: ADMIT Internal Medicine Critical Care Medicine; ATTEND Internal Medicine Critical Care Medicine
PROC: 02HV33Z Insertion of Infusion Device into Superior Vena Cava, Percutaneous Approach (ICD-10-PCS; principal; 2017-07-26)
PROC: 5A1955Z Respiratory Ventilation, Greater than 96 Consecutive Hours (ICD-10-PCS; 2017-07-26)
PROC: 02HV33Z Insertion of Infusion Device into Superior Vena Cava, Percutaneous Approach (ICD-10-PCS; 2017-08-01)
PROC: 5A2204Z Restoration of Cardiac Rhythm, Single (ICD-10-PCS; 2017-08-04)
DX: J96.01 Acute respiratory failure with hypoxia (principal); I81 Portal vein thrombosis; A41.9 Sepsis, unspecified organism; E43 Unspecified severe protein-calorie malnutrition; G92 Toxic encephalopathy; R65.21 Severe sepsis with septic shock; R57.0 Cardiogenic shock; J15.1 Pneumonia due to Pseudomonas; J15.5 Pneumonia due to Escherichia coli; E87.2 Acidosis; N17.9 Acute kidney failure, unspecified; I50.22 Chronic systolic (congestive) heart failure; I48.92 Unspecified atrial flutter; J44.0 Chronic obstructive pulmonary disease with (acute) lower respiratory infection; N39.0 Urinary tract infection, site not specified; E87.1 Hypo-osmolality and hyponatremia; K76.6 Portal hypertension; D69.6 Thrombocytopenia, unspecified; E87.5 Hyperkalemia; I48.91 Unspecified atrial fibrillation; Z51.5 Encounter for palliative care; B18.2 Chronic viral hepatitis C; B95.2 Enterococcus as the cause of diseases classified elsewhere; B96.20 Unspecified Escherichia coli [E. coli] as the cause of diseases classified elsewhere; Z16.12 Extended spectrum beta lactamase (ESBL) resistance; Z16.21 Resistance to vancomycin; R00.1 Bradycardia, unspecified; Z16.24 Resistance to multiple antibiotics; N40.0 Benign prostatic hyperplasia without lower urinary tract symptoms; D53.9 Nutritional anemia, unspecified; K74.60 Unspecified cirrhosis of liver; Z66 Do not resuscitate; Z99.81 Dependence on supplemental oxygen; Z68.26 Body mass index [BMI] 26.0-26.9, adult
CPT/HCPCS: 36556; 36600; 36620; 70450; 71010; 71250; 76705; 76937; 80048; 80053; 80074; 80162; 80185; 80307; 81001; 82140; 82150; 82248; 82550; 82570; 82805; 82948; 83605; 83690; 83735; 84100; 84132; 84439; 84443; 84481; 84484; 85007; 85025; 85027; 85384; 85610; 85730; 87040; 87070; 87077; 87086; 87186; 87205; 87493; 87522; 87641; 87902; 93005; 93306; 93975; 94002; 94003; 94640; 94664; 95819; 96365; 96368; C9113; J0610; J1160; J1162; J1265; J1720; J1815; J2020; J2185; J2250; J2370; J2543; J3010; J3411; J7030; J7042; J7050; J7060; J7613; J7626; P9047